=== PATIENT | male | born 1945 | race Caucasian/White ===

== ENCOUNTER 2023-10-09 13:41 | Inpatient (IN) | payer MEDICARE ==
[2023-10-09] MEDS ORDERED: SODIUM CHLORIDE 0.9% 500 ML 500 ML IV STA (14:24)
[2023-10-09] MEDS ORDERED: ACETAMINOPHEN TAB 500 MG TAB PO STA (14:26)
--- NOTE | 2023-10-09 14:28 | ED ---
General Adult HPI - General Chief complaint: Shortness of Breath Stated complaint: SOB Time Seen by Provider: 10/09/23 13:54 Source: patient, EMS Mode of arrival: EMS Limitations: no limitations - History of Present Illness Initial comments: Dictation was produced using [employer] dictation software. please excuse any grammatical, word or spelling errors. Chief Complaint: 78-year-old male presents with fever and shortness of breath History of Present Illness: Is 78-year-old male is brought in from home by EMS for shortness of breath. Patient states that his called because he was severely dyspneic. Patient states for the last 24-48 hours he is been having fever and shortness of breath. He has history of COPD and CHF. Denies any chest pain. Denies any constitutional symptoms. He was surprised when the nurse told he had a fever. Denies any lower 70 pain. No history of blood clots. He does not take any medical evaluation medications. The ROS documented in this emergency department record has been reviewed and co nfirmed by me. Those systems with pertinent positive or negative responses have been documented in the HPI. All other systems are other negative and/or noncontributory. - Related Data Home Medications Medication Instructions Recorded Confirmed Fluticasone/Umeclidin/Vilanter 1 puff INHALATION RT-DAILY 10/09/23 10/09/23 [Trelegy Ellipta 100-62.5-25] Levocetirizine Dihydrochloride 5 mg PO HS 10/09/23 10/09/23 [Xyzal] Losartan-Hctz 50-12.5 mg [Hyzaar 1 tab PO DAILY 10/09/23 10/09/23 50-12.5] Montelukast [Singulair] 10 mg PO DAILY 10/09/23 10/09/23 Pantoprazole [Protonix] 40 mg PO DAILY 10/09/23 10/09/23 Simvastatin [Zocor] 20 mg PO HS 10/09/23 10/09/23 Allergies Allergy/AdvReac Type Severity Reaction Status Date / Time No Known Allergies Allergy Verified 10/09/23 16:03 Review of Systems ROS Statement: Those systems with pertinent positive or pertinent negative responses have been documented in the HPI. ROS Other: All systems not noted in ROS Statement are negative. Past Medical History Past Medical History: Heart Failure, COPD Past Surgical History: Heart Catheterization, Heart Catheterization With Stent Smoking Status: Former smoker Past Alcohol Use History: None Reported Past Drug Use History: None Reported General Exam - General Exam Comments Initial Comments: PHYSICAL EXAM: General Impression: Alert and oriented x3, not in acute distress HEENT: Normocephalic atraumatic, extra-ocular movements intact, pupils equal and reactive to light bilaterally, mucous membranes moist. Cardiovascular: Heart regular rate and rhythm Chest: Able to complete full sentences, no retractions, no tachypnea Abdomen: abdomen soft, non-tender, non-distended, no organomegaly Musculoskeletal: Pulses present and equal in all extremities, no peripheral edema Motor: no focal deficits noted Neurological: CN II-XII grossly intact, no focal motor or sensory deficits noted Skin: Intact with no visualized rashes Psych: Normal affect and mood Limitations: no limitations Course Vital Signs 10/09/23 10/09/23 10/09/23 13:44 13:51 14:06 Temperature 101.4 F H Pulse Rate 134 H Respiratory 34 H 30 H Rate Blood Pressure 111/74 O2 Sat by Pulse 78 L 90 L Oximetry 10/09/23 10/09/23 14:51 16:05 Temperature 98.4 F Pulse Rate 113 H Respiratory 18 Rate Blood Pressure O2 Sat by Pulse 93 L 93 L Oximetry EKG Findings - EKG Comments: EKG Findings:: My EKG interpretation: Ventricular rate 123, sinus tachycardia,. 160, QRS 100, QTC 355. No IL prolongation, no QTC prolongation, no ST or T-wave changes noted. No old EKG for comparison. Overall, this EKG is unremarkable Medical Decision Making - Medical Decision Making Was pt. sent in by a medical professional or institution (, PA, DIRECTOR OF GROUP COUNSELING PROGRAM, urgent care, hospital, or longterm...) When possible be specific @ -No Did you speak to anyone other than the patient for history (EMS, parent, family, police, friend...)? What history was obtained from this source @ -No Did you review nursing and triage notes (agree or disagree)? Why? @ -I reviewed and agree with nursing and triage notes Were old charts reviewed (outside hosp., previous admission, EMS record, old EKG, old radiological studies, urgent care reports/EKG's, longterm records)? Report findings @ -No old charts were reviewed Differential Diagnosis (chest pain, altered mental status, abdominal pain women, abdominal pain men, vaginal bleeding, musculoskeletal, weakness, fever, dyspnea, syncope, headache, dizziness, GI bleed, back pain, seizure, CVA, palpatations, mental health)? @ -Differential Dyspnea: Coronary syndrome, arrhythmia, tamponade, asthma, COPD, pulmonary embolism, pneumonia, pneumothorax, pulmonary effusion, anaphylaxis, diabetic ketoacidosis, flailed chest, pulmonary contusion, diaphragmatic rupture, anemia, neuromuscula r, this is not meant to be an all-inclusive list. EKG interpreted by me (3pts min.). @ -See above X-rays interpreted by me (1pt min.). @ -X-ray shows left lung infiltrates CT interpreted by me (1pt min.). @ -None done U/S interpreted by me (1pt. min.). @ -None done What testing was considered but not performed or refused? (CT, X-rays, U/S, labs)? Why? @ -None What meds were considered but not given or refused? Why? @ -None Did you discuss the management of the patient with other professionals (professionals i.e. , PA, DIRECTOR OF GROUP COUNSELING PROGRAM, lab, RT, psych nurse, social professionals, clay washer, teacher, compliance officer, caseworker intake)? Give summary @ -Discussed with hospitalist for admission Was smoking cessation discussed for >3mins.? @ -No Was critical care preformed (if so, how long)? @ -yes, 33 minutes Were there social determinants of health that impacted care today? How? (Homelessness, low income, unemployed, alcoholism, drug addiction, transport ation, low edu. Level, literacy, decrease access to med. care, [facility], rehab)? @ -No Was there de-escalation of care discussed even if they declined (Discuss DNR or withdrawal of care, Hospice)? DNR status @ -No What co-morbidities impacted this encounter? (DM, HTN, Smoking, COPD, CAD, Cancer, CVA, ARF, Chemo, Hep., AIDS, mental health diagnosis, sleep apnea, morbid obesity)? @ -None Was patient admitted / discharged? Hospital course, mention meds given and route, prescriptions, significant lab abnormalities, going to OR and other pertinent info. @ -78-year-old male presents emergency department for respiratory failure. Does have a fever. Vital signs upon arrival shows temperature 10.4, 34% respiratory rate 70% on room air. Patient placed on nasal cannula oxygen with improvement of respiratory status. Leukocytosis 22.0, coag panel is negative. Hyponatremic 126 over left gas at 2.3. Troponin of 0.255 with a BNP of 200001/12/1971. Patient meets criteria for sepsis. Given his history of heart failure 3 mL per KG bolus may be harmful. He will gently hydrate patient. Patient be admitted. Patient started on antibiotics. Pulmonology will be con sulted. Patient has an elevated troponin which likely secondary to infection. Cardiology be consulted. Undiagnosed new problem with uncertain prognosis? @ -No Drug Therapy requiring intensive monitoring for toxicity (Heparin, Nitro, Insulin, Cardizem)? @ -No Were any procedures done? @ -No Diagnosis/symptom? Acute, or Chronic, or Acute on Chronic? Uncomplicated (without systemic symptoms) or Complicated (systemic symptoms)? @ -Pneumonia, respiratory failure Side effects of treatment? @ -No Exacerbation, Progression, or Severe Exacerbation? @ -No Poses a threat to life or bodily function? How? (Chest pain, USA, MD, pneumonia, PE, COPD, DKA, ARF, appy, cholecystitis, CVA, Diverticulitis, Homicidal, Suicidal, threat to staff... and all critical care pts) @ -yes - Lab Data Result diagrams: 10/09/23 14:26 10/09/23 14:26 Lab Results 10/09/23 10/09/23 10/09/23 Range/Units 14:26 14:26 14:26 WBC 22.0 H (3.8-10.6) k/uL RBC 5.07 (4.30-5.90) m/uL Hgb 15.3 (13.0-17.5) gm/dL Hct 45.9 (39.0-53.0) % MCV 90.5 (80.0-100.0) fL MCH 30.2 (25.0-35.0) pg MCHC 33.4 (31.0-37.0) g/dL RDW 13.1 (11.5-15.5) % Plt Count 283 (150-450) k/uL MPV 8.1 Neutrophils % 93 % Lymphocytes % 3 % Monocytes % 4 % Eosinophils % 0 % Basophils % 0 % Neutrophils # 20.5 H (1.3-7.7) k/uL Lymphocytes # 0.6 L (1.0-4.8) k/uL Monocytes # 0.8 (0-1.0) k/uL Eosinophils # 0.0 (0-0.7) k/uL Basophils # 0.0 (0-0.2) k/uL PT (10.0-12.5) sec INR (<1.2) APTT (22.0-30.0) sec Sodium 126 L (137-145) mmol/L Potassium 5.1 (3.5-5.1) mmol/L Chloride 89 L (98-107) mmol/L Carbon Dioxide 21 L (22-30) mmol/L Anion Gap 16 mmol/L BUN 23 H (9-20) mg/dL Creatinine 0.84 (0.66-1.25) mg/dL Est GFR (CKD-EPI)AfAm >90 (>60 ml/min/1.73 sqM) Est GFR (CKD-EPI)NonAf 83 (>60 ml/min/1.73 sqM) Glucose 86 (74-99) mg/dL Plasma Lactic Acid Mac 2.3 H* (0.7-2.0) mmol/L Calcium 9.3 (8.4-10.2) mg/dL Magnesium 1.6 (1.6-2.3) mg/dL Total Bilirubin 2.1 H (0.2-1.3) mg/dL AST 35 (17-59) U/L ALT 21 (4-49) U/L Alkaline Phosphatase 72 (38-126) U/L Troponin I (0.000-0.034) ng/mL NT-Pro-B Natriuret Pep 2370 pg/mL Total Protein 8.0 (6.3-8.2) g/dL Albumin 4.3 (3.5-5.0) g/dL Influenza Type A (PCR) (Not Detectd) Influenza Type B (PCR) (Not Detectd) RSV (PCR) (Not Detectd) SARS-CoV-2 (PCR) (Not Detectd) 10/09/23 10/09/23 10/09/23 Range/Units 14:26 14:26 14:26 WBC (3.8-10.6) k/uL RBC (4.30-5.90) m/uL Hgb (13.0-17.5) gm/dL Hct (39.0-53.0) % MCV (80.0-100.0) fL MCH (25.0-35.0) pg MCHC (31.0-37.0) g/dL RDW (11.5-15.5) % Plt Count (150-450) k/uL MPV Neutrophils % % Lymphocytes % % Monocytes % % Eosinophils % % Basophils % % Neutrophils # (1.3-7.7) k/uL Lymphocytes # (1.0-4.8) k/uL Monocytes # (0-1.0) k/uL Eosinophils # (0-0.7) k/uL Basophils # (0-0.2) k/uL PT 13.1 H (10.0-12.5) sec INR 1.2 H (<1.2) APTT 25.9 (22.0-30.0) sec Sodium (137-145) mmol/L Potassium (3.5-5.1) mmol/L Chloride (98-107) mmol/L Carbon Dioxide (22-30) mmol/L Anion Gap mmol/L BUN (9-20) mg/dL Creatinine (0.66-1.25) mg/dL Est GFR (CKD-EPI)AfAm (>60 ml/min/1.73 sqM) Est GFR (CKD-EPI)NonAf (>60 ml/min/1.73 sqM) Glucose (74-99) mg/dL Plasma Lactic Acid Mac (0.7-2.0) mmol/L Calcium (8.4-10.2) mg/dL Magnesium (1.6-2.3) mg/dL Total Bilirubin (0.2-1.3) mg/dL AST (17-59) U/L ALT (4-49) U/L Alkaline Phosphatase (38-126) U/L Troponin I 0.255 H* (0.000-0.034) ng/mL NT-Pro-B Natriuret Pep pg/mL Total Protein (6.3-8.2) g/dL Albumin (3.5-5.0) g/dL Influenza Type A (PCR) Not Detected (Not Detectd) Influenza Type B (PCR) Not Detected (Not Detectd) RSV (PCR) Not Detected (Not Detectd) SARS-CoV-2 (PCR) Not Detected (Not Detectd) Disposition Clinical Impression: Pneumonia Disposition: ADMITTED IP TO THIS HOSP Condition: Serious Referrals: Yao Tavreas MD [Primary Care Provider] - 1-2 days Decision Time: 16:13
[2023-10-09 14:42] LABS: Basophils % (A) 0 %; Eosinophils % (A) 0 %; HCT 45.9 % (39.0-53.0); HGB 15.3 gm/dL (13.0-17.5); Lymphocytes # (A) 0.6 k/uL (1.0-4.8); Lymphocytes % (A) 3 %; MCH 30.2 pg (25.0-35.0); MCHC 33.4 g/dL (31.0-37.0); MCV 90.5 fL (80.0-100.0); Mean Platelet Volume 8.1; Monocytes # (A) 0.8 k/uL (0-1.0); Monocytes % (A) 4 %; Neutrophils # (A) 20.5 k/uL (1.3-7.7); Neutrophils % (A) 93 %; Platelet Count 283 k/uL (150-450); RBC 5.07 m/uL (4.30-5.90); RDW 13.1 % (11.5-15.5)
--- NOTE | 2023-10-09 14:44 | XR ---
EXAMINATION TYPE: XR chest 2V DATE OF EXAM: 10/09/2023 COMPARISON: NONE HISTORY: Shortness of breath TECHNIQUE: Frontal and lateral views of the chest are obtained. FINDINGS: Scattered senescent parenchymal changes noted. Hyperinflation compatible with COPD. Patchy left perihilar and left lower lobe infiltrate felt to reflect pneumonia until proven otherwise . Heart size is stable. Mediastinal structures are stable and grossly unremarkable. No evidence for hilar prominence. Degenerative changes dorsal spine. IMPRESSION: 1. Patchy left perihilar and left lower lobe infiltrate felt to reflect pneumonia until proven otherw ise.
[2023-10-09 14:57] LABS: ALT 21 U/L (4-49); African American GFR (CKD) >90 (>60 ml/min/1.73 sqM); Anion Gap 16 mmol/L; Blood Urea Nitrogen 23 mg/dL (9-20); Calcium 9.3 mg/dL (8.4-10.2); Carbon Dioxide 21 mmol/L (22-30); Chloride 89 mmol/L (98-107); Glucose 86 mg/dL (74-99); Non-African American GFR(CKD) 83 (>60 ml/min/1.73 sqM); Sodium 126 mmol/L (137-145); Total Bilirubin 2.1 mg/dL (0.2-1.3)
[2023-10-09 15:06] LABS: NT-Pro-B-Type Natriuretic Pept 2370 pg/mL
[2023-10-09 15:20] LABS: AST 35 U/L (17-59); Albumin 4.3 g/dL (3.5-5.0); Alkaline Phosphatase 72 U/L (38-126); Magnesium 1.6 mg/dL (1.6-2.3); Potassium 5.1 mmol/L (3.5-5.1)
[2023-10-09 15:30] LABS: INR 1.2 (<1.2); Partial Thromboplastin Time 25.9 sec (22.0-30.0); Prothrombin Time 13.1 sec (10.0-12.5)
[2023-10-09] MEDS ORDERED: AZITHROMYCIN 500 MG in SODIUM CHLORIDE 0.9% 250 ML IVPB STA (15:57)
[2023-10-09] MEDS ORDERED: cefTRIAXone IN SWFI 1,000 MG/10 ML SYRINGE IVP STA (15:57)
[2023-10-09] MEDS ORDERED: SODIUM CHLORIDE 0.9% 1,000 ML IV STA (16:02)
[2023-10-09] MEDS ORDERED: NALOXONE 0.4 MG/ML 1 ML VIAL IV PRN (16:06)
[2023-10-09] MEDS ORDERED: ASPIRIN 81 MG PO STA (16:06)
[2023-10-09] MEDS: MAGNESIUM SULFATE-D5W PMX 1 GM in DEXTROSE/WATER 1 100ML.BAG IVPB SCH ×2 (17:10→19:03)
[2023-10-09] MEDS: SODIUM CHLORIDE 0.9% 1,000 ML IV SCH ×2 (17:14→23:31)
--- NOTE | 2023-10-09 18:02 | P.HPIM ---
History of Present Illness H&P Date: 10/09/23 History of Presenting Illness: Patient is a pleasant 78-year-old male with a past medical history of CAD status post stenting, hypertension, hyperlipidemia, COPD not home oxygen dependent, and congestive heart failure unknown type. He presented to the [facility] department secondary to reports of shortness of breath and cough. Patient reports he recently moved from [place] to [place] and over the past 3-4 days he has been battling some sort of illness. Patient states he has had generalized fatigue, loss of appetite, increased cough, increased shortness of breath, and significant dyspnea with any exertion. Patient reports he does not recall having an elevated temp at home but did have one upon arrival to the hospital. He reports feeling chilled about 4 or 5 days ago but other than that he denies having any chills, diaphoresis, headache, lightheadedness, dizziness, chest pain, palpitations, or experiencing any numbness/tingling/weakness/ swelling in his extremities. Patient does report loss of appetite and states that he has not really drink or eat anything in a couple of days. In addition he reports last time urinating being sometime last night probably between midnight and 3 AM. He reports having all of his vaccinations for pneumonia, RSV, and Covid and reports he just got his boosters last month. He denies anyone else in the home being sick or exposure to known ill contacts. Patient denies following with a rail layer or director risk as he just moved to [place] in July and has not yet established care with them yet. Patient underwent full evaluation in the emergency department. He was found to be hypoxic 78% on room air requiring 6 L O2 via nasal cannula oxygen supplementation to increase SpO2 to 90%. Patient was tachypneic at 34 breaths per minute, tachycardic in the 134 bpm, and febrile with temperature 101.4F. Blood pressure stable at 111/74. Labs completed and reviewed. CBC showing significant leukocytosis with WBC count of 22.0. Coagulation profile showing elevated PT of 13.1 and INR 1.2. BMP showing hyponatremia with sodium 126, hypochloremia with chloride of 89, hypocarbia with bicarb of 21, elevated anion gap of 16, with BUN of 23. Glucose was 86. Lactic acid of 2.3. Magnesium 1.6. Elevated bili of 2.1 and elevated troponin of 0.255. EKG showing sinus tachycardia with frequent PVCs at 123 bpm. chest x-ray showing patchy left perihilar and left lower lobe infiltrate. Influenza A, influenza B, RSV, and Covid PCR were all negative. Patient admitted under our services with consultation and to rail layer for elevated troponin levels and director risk for acute respiratory failure with hypoxia. Review of systems: Pertinent positives and negatives as discussed in HPI, a complete review of systems was performed and all other systems are negative. Physical exam: General: Patient appears in acute distress secondary to increased respiratory effort and oxygenation needs. Derm: Skin warm and dry, normal coloration for ethnicity. Head: Atraumatic, normocephalic and symmetric. Eyes: EOMs intact, no lid lag, and anicteric sclera Mouth: no lip lesions, mucus membranes moist Cardiovascular: regular rate and rhythm with normal S1S2, no murmur, positive posterior tibial pulses bilaterally, and cap refill < 2 seconds. Lungs: Respirations even, regular, and unlabored on 6 L O2 via nasal cannula. Lungs diminished otherwise no rhonchi, no rales, no wheezing, no crackles and no accessory muscle usage. Abdominal: soft, nontender to palpation, no guarding, no appreciable organo megaly Ext: ROM intact. No gross muscle atrophy, no edema, no contractures Neuro: Speech clear, face symmetrical and CN II-XII grossly intact with no noted focal neuro deficits Psych: Alert and oriented to person, place, time, and situation. Appropriate and pleasant affect. Assessment and Plan of Care: Acute respiratory failure with hypoxia secondary to left basilar pneumonia accompanied by COPD exacerbation Severe sepsis Left lower lobe pneumonia COPD with acute exacerbation likely secondary to above Elevated troponin, possibly secondary to severe sepsis although cannot rule out cardiac etiology at this time High anion gap Lactic acidosis Dehydration with hyponatremia Hyperbilirubinemia Elevated troponin History of CAD status post stenting Hypertension Hyperlipidemia -Pulmonology consulted for acute respiratory failure with hypoxia -Cardiology consulted for elevated troponins -Patient received aspirin 325 mg by mouth 1 dose in the emergency department in order placed for repeat stat troponin now. -Oxygenation to be administered and titrated as needed to maintain SPO2 equal to or greater than 92% -Patient to remain on continuous Telemetry monitoring. -Order placed for trending of troponins -Continuous Pulse-oximetry -Duonebs scheduled for times daily and as needed for SOB and/or wheezing -Incentive Spirometry -Steroids: Same Medrol 125 mg IVP 1 dose followed by 40 mg IVP every 6 hours. -Antibiotics: Rocephin 2 g daily and azithromycin 500 mg daily. -Order placed for Sputum culture and will follow-up on blood culture results. -Patient being treated with gentle IV fluid hydration with 0.9% normal saline at 100 mL an hour secondary to dehydration and hyponatremia. -Order placed for stat urinalysis with reflex culture as patient reports approximately 18 hours since he has urinated. -Home medications reviewed and reordered. Patient to continue with aspirin 81 mg daily, atorvastatin 10 mg nightly, Symbicort 804 0.5 g 2 puffs twice daily, Claritin 10 mg nightly, losartan 50 mg daily, and Singulair 10 mg daily. -Magnesium replaced was 1. [address] for 2 g magnesium sulfate IVPB 1 dose. Data and imaging reviewed: -Vital signs reviewed. Patient hypoxic 78% on room air requiring 6 L O2 via nasal cannula oxygen supplementation to increase SpO2 to 90%. Patient was tachypneic at 34 breaths per minute, tachycardic in the 134 bpm, and febrile with temperature 101.4F. Blood pressure stable at 111/74. -Labs completed and reviewed. CBC showing significant leukocytosis with WBC count of 22.0. Coagulation profile showing elevated PT of 13.1 and INR 1.2. BMP showing hyponatremia with sodium 126, hypochloremia with chloride of 89, hypocarbia with bicarb of 21, elevated anion gap of 16, with BUN of 23. Glucose was 86. Lactic acid of 2.3. Magnesium 1.6. Elevated bili of 2.1 and elevated troponin of 0.255. -EKG showing sinus tachycardia with frequent PVCs at 123 bpm. -Chest x-ray showing patchy left perihilar and left lower lobe infiltrate. Influenza A, influenza B, RSV, and Covid PCR were all negative. The patient is admitted with an anticipated greater than 2 midnight stay for evaluation of acute respiratory failure with with hypoxia secondary to left basilar pneumonia accompanied by COPD exacerbation CODE STATUS: Full code DVT prophylaxis: Heparin Anticipated discharge date: Clinical course to determine Anticipated discharge place: Clinical course to determine Patient was seen independently by Nurse Practitioner. This document was prepared using [employer] dictation software. Please allow for errors in cytogenetic technologist while rare they do occur. Harvey Nur NP rendered care for this patient independently, reviewed the findings and plan as documented in the note above. I did not physically speak with or examine the patient on this date. Past Medical History Past Medical History: Heart Failure, COPD Past Surgical History: Heart Catheterization, Heart Catheterization With Stent Smoking Status: Former smoker Past Alcohol Use History: None Reported Past Drug Use History: None Reported Medications and Allergies Home Medications Medication Instructions Recorded Confirmed Type Fluticasone/Umeclidin/Vilanter 1 puff INHALATION RT-DAILY 10/09/23 10/09/23 History [Trelegy Ellipta 100-62.5-25] Levocetirizine Dihydrochloride 5 mg PO HS 10/09/23 10/09/23 History [Xyzal] Montelukast [Singulair] 10 mg PO DAILY 10/09/23 10/09/23 History Pantoprazole [Protonix] 40 mg PO DAILY 10/09/23 10/09/23 History Simvastatin [Zocor] 20 mg PO HS 10/09/23 10/09/23 History Budesonide-Formot 160-4.5 Mcg 2 puff INHALATION RT-BID 30 Days 10/15/23 Rx [Symbicort 160-4.5 Mcg Inhaler] #1 each Ipratropium-Albuterol Nebulize 3 ml INHALATION RT-QID #120 each 10/15/23 Rx [Duoneb 0.5 mg-3 mg/3 ml Soln] Losartan [Cozaar] 50 mg PO DAILY 30 Days #30 tab 10/15/23 Rx Metoprolol Succinate (ER) [Toprol 50 mg PO DAILY 30 Days #30 tab 10/15/23 Rx XL] amLODIPine [Norvasc] 5 mg PO DAILY 30 Days #30 tab 10/15/23 Rx predniSONE See Taper PO DIRECTED 12 Days 10/15/23 Rx #30 tab Allergies Allergy/AdvReac Type Severity Reaction Status Date / Time No Known Allergies Allergy Verified 10/09/23 16:03 Physical Exam Vitals: Vital Signs Temp Pulse Resp BP Pulse Ox 10/09/23 16:05 98.4 F 93 L 10/09/23 14:51 113 H 18 93 L 10/09/23 14:06 30 H 10/09/23 13:51 90 L 10/09/23 13:44 101.4 F H 134 H 34 H 111/74 78 L Intake and Output 10/09/23 10/09/23 10/09/23 06:59 14:59 22:59 Other: Weight 77.111 kg Results CBC & Chem 7: 10/15/23 08:36 10/15/23 08:36 Labs: Abnormal Lab Results - Last 24 Hours (Table) 10/09/23 10/09/23 10/09/23 Range/Units 14:26 14:26 14:26 WBC 22.0 H (3.8-10.6) k/uL Neutrophils # 20.5 H (1.3-7.7) k/uL Lymphocytes # 0.6 L (1.0-4.8) k/uL PT (10.0-12.5) sec INR (<1.2) Sodium 126 L (137-145) mmol/L Chloride 89 L (98-107) mmol/L Carbon Dioxide 21 L (22-30) mmol/L BUN 23 H (9-20) mg/dL Plasma Lactic Acid Mac 2.3 H* (0.7-2.0) mmol/L Total Bilirubin 2.1 H (0.2-1.3) mg/dL Troponin I (0.000-0.034) ng/mL 10/09/23 10/09/23 Range/Units 14:26 14:26 WBC (3.8-10.6) k/uL Neutrophils # (1.3-7.7) k/uL Lymphocytes # (1.0-4.8) k/uL PT 13.1 H (10.0-12.5) sec INR 1.2 H (<1.2) Sodium (137-145) mmol/L Chloride (98-107) mmol/L Carbon Dioxide (22-30) mmol/L BUN (9-20) mg/dL Plasma Lactic Acid Mac (0.7-2.0) mmol/L Total Bilirubin (0.2-1.3) mg/dL Troponin I 0.255 H* (0.000-0.034) ng/mL
[2023-10-09] MEDS ORDERED: methylPREDNISolone SOD SUCCI 125 MG/2 ML VIAL IV STA (18:03)
[2023-10-09] MEDS ORDERED: IPRATROPIUM-ALBUTEROL 3 ML NEB INHALATION PRN (18:04)
--- NOTE | 2023-10-09 18:11 | CT ---
EXAMINATION TYPE: CT chest angio for PE DATE OF EXAM: 10/09/2023 COMPARISON: None HISTORY: COUGH, SOB CT DLP: 289.8 mGycm CONTRAST: CT chest with contrast and 3D reconstruction with MIP imaging is performed with IV Contrast, patient injected with 100 mL of Isovue 370. Contrast-enhanced CT of the chest was performed through the course of the pulmonary arteries with primo g and mediastinal window settings submitted. 3D reconstruction with MIP imaging was also performed. PULMONARY ARTERIES: The pulmonary arteries and their major tributaries are patent. I do not see manish dence for sizable filling defect to suggest pulmonary embolic process. LUNGS: Basilar airspace consolidation noted left greater than right felt to reflect pneumonia or aspi ration pneumonia. Sizable effusion. Moderate centrilobular emphysema. Pleural parenchymal opacity rig ht upper lobe. MEDIASTINUM: Thoracic aorta is of normal caliber. The heart is not enlarged. No evidence for medias tinal mass. No mediastinal lymph nodes greater than 1cm. HILAR STRUCTURES: No evidence for mass. Mildly prominent perihilar peribronchial lymph nodes. Fixed h iatal hernia. UPPER ABDOMEN: No significant abnormality is seen. IMPRESSION: 1. No evidence for Pulmonary embolism at this time. 2. Findings suggest basilar pneumonia.
[2023-10-09] MEDS ORDERED: IPRATROPIUM 0.5 MG/2.5 ML NEBU INHALATION SCH (20:00)
[2023-10-09] MEDS ORDERED: SYMBICORT 80-4.5 MCG INHALER INHALATION SCH (20:00)
[2023-10-09] MEDS: LORATADINE 10 MG TAB PO SCH (20:52)
[2023-10-09] MEDS ORDERED: ATORVASTATIN 10 MG TAB PO SCH (21:00)
[2023-10-09] MEDS: IPRATROPIUM-ALBUTEROL 3 ML NEB INHALATION SCH (21:13)
[2023-10-09 23:04] LABS: Appearance,Urine Clear (Clear); Bilirubin,Urine Negative (Negative); Blood,Urine Negative (Negative); Color,Urine Yellow; Glucose,Urine (UA) Negative (Negative); Ketones,Urine Negative (Negative); Leukocyte Esterase,Urine Negative (Negative); Nitrite,Urine Negative (Negative); PH, Urine 5.5 (5.0-8.0); Protein,Urine Trace (Negative); Urobilinogen,Urine <2.0 mg/dL (<2.0)
[2023-10-09 23:05] LABS: Specific Gravity,Urine >1.050 (1.001-1.035)
[2023-10-09] MEDS: HEPARIN SODIUM,PORCINE 5,000 UNIT/ML 1 ML VIAL SQ SCH (23:30)
[2023-10-10] MEDS ORDERED: methylPREDNISolone SOD SUCCI 40 MG/ML 1 ML VIAL IV SCH
--- NOTE | 2023-10-10 04:27 | P.CNPUL ---
History of Present Illness Consult date: 10/10/23 Requesting physician: Yakov Alarcon Reason for consult: other (Pneumonia) Chief complaint: Shortness of breath 4 days with an associated congested cough and yellow s History of present illness: I am seeing this patient in consultation today in 10/10/2023 for suspected bilateral community acquired pneumonia. Patient is a 78-year-old white male with past medical history significant for coronary artery disease with previous heart catheterization and stents, CHF, hypertension, hyperlipidemia, and COPD. Not normally oxygen dependent. Patient is remote ex-smoker of over 20 years ago. Patient reportedly recently moved to [place] from [place]. Patient was brought in by EMS yesterday afternoon the chief complaint of shortness of breath. On arrival to the emergency room, he was hypoxic initially placed on 6 L/m nasal cannula. Chest CTA on arrival did not show any evidence of pulmonary embolism. It did show bibasilar infiltrates and consolidation suggestive of pneumonia. He admits shortness of breath over the last 4 days. This is been associated with a congested cough and yellow sputum production. He denies any fevers, however, was febrile on arrival. T-max 101.4F. Denies any chest pain or hemoptysis. Denies heart palpitations or any lower extremity swelling. Admits reduced appetite. No nausea, vomiting or abdominal pain. He denies any known sick contacts. Patient is currently sitting up in bed, but 3 L per nasal cannula, in no acute distress. CBC on arrival showed leukocytosis with a WBC count of 22, hemoglobin 15.3, hematocrit 45.9, platelets 283. BMP on arrival shows sodium 126, potassium 5.1, chloride 89, serum bicarb 21, BUN 23, creatinine 0.84, glucose 86. Lactic acid level was 2.3. LFTs not elevated. Troponins elevated at 0.255, 0.218, and 0.125 respectively. NT proBNP was 2370. ECG shoes sinus tachycardia with frequent PVCs and no acute ischemic changes. Negative for influenza, RSV, COVID-19. Patient appears nontoxic and hemodynamically stable. He is being monitored on the cardiac stepdown unit. Review of Systems REVIEW OF SYSTEMS: CONSTITUTIONAL: Denies any recent significant weight loss or weight gain. EYES: Denies change in vision. EARS, NOSE, MOUTH, THROAT: Denies headaches, denies sore throat. CARDIOVASCULAR: Denies chest pain, palpitations or syncopal episodes. RESPIRATORY: See HPI GASTROINTESTINAL: Denies abdominal pain, nausea and vomiting, or diarrhea . Admits reduced appetite GENITOURINARY: Denies hematuria, denies infections. MUSKULOSKELETAL: Denies pain, denies swelling. INTEGUMENTARY: Denies rash, denies eczema. NEUROLOGICAL: Denies recent memory loss, no recent seizure activity. PSYCHIATRIC: Denies anxiety, denies depression. HEMATOLOGIC/LYMPHATIC: Denies anemia, denies enlarged lymph node Past Medical History Past Medical History: Coronary Artery Disease (CAD), Heart Failure, COPD History of Any Multi-Drug Resistant Organisms: None Reported Past Surgical History: Coronary Bypass/CABG, Heart Catheterization, Heart Catheterization With Stent Additional Past Surgical History / Comment(s): Triple bypass 2015. Bypass artery in groin 2010. Past Anesthesia/Blood Transfusion Reactions: No Reported Reaction Date of Last Stent Placement:: 2014 Past Psychological History: No Psychological Hx Reported Smoking Status: Former smoker Past Alcohol Use History: Daily Additional Past Alcohol Use History / Comment(s): 1-2 drinks per day. Past Drug Use History: None Reported Medications and Allergies Home Medications Medication Instructions Recorded Confirmed Type Fluticasone/Umeclidin/Vilanter 1 puff INHALATION RT-DAILY 10/09/23 10/09/23 History [Trelegy Ellipta 100-62.5-25] Levocetirizine Dihydrochloride 5 mg PO HS 10/09/23 10/09/23 History [Xyzal] Losartan-Hctz 50-12.5 mg [Hyzaar 1 tab PO DAILY 10/09/23 10/09/23 History 50-12.5] Montelukast [Singulair] 10 mg PO DAILY 10/09/23 10/09/23 History Pantoprazole [Protonix] 40 mg PO DAILY 10/09/23 10/09/23 History Simvastatin [Zocor] 20 mg PO HS 10/09/23 10/09/23 History Allergies Allergy/AdvReac Type Severity Reaction Status Date / Time No Known Allergies Allergy Verified 10/09/23 16:03 Physical Exam Vitals: Vital Signs Temp Pulse Pulse Resp BP BP Pulse Ox 10/10/23 01:08 92 24 10/09/23 23:04 97.5 F L 92 24 133/71 93 L 10/09/23 21:26 86 10/09/23 21:16 81 10/09/23 20:08 97.2 F L 77 20 96/52 96 10/09/23 19:06 73 18 90/54 97 10/09/23 17:08 93 20 97/55 94 L 10/09/23 16:05 98.4 F 93 L 10/09/23 14:51 113 H 18 93 L 10/09/23 14:06 30 H 10/09/23 13:51 90 L 10/09/23 13:44 101.4 F H 134 H 34 H 111/74 78 L Intake and Output 10/09/23 10/09/23 10/10/23 14:59 22:59 06:59 Output Total 250 Balance -250 Output: Urine 250 Other: Voiding Method Urinal Urinal Weight 77.111 kg 77.111 kg GENERAL EXAM: Alert, 78-year-old white male , comfortable in no apparent distress. HEAD: Normocephalic and atraumatic EYES: Normal reaction of pupils, equal size. NOSE: Clear with pink turbinates. THROAT: No erythema or exudates. NECK: No masses, no JVD. CHEST: No chest wall deformity. LUNGS: Equal air entry with inspiratory bibasilar crackles and dullness. There are scattered rhonchi and wheezes throughout. On 3 L per minute nasal cannula. No conversational dyspnea or accessory muscle use.. CVS: S1 and S2 normal with no audible murmur, regular rhythm. No extra heart sounds ABDOMEN: No hepatosplenomegaly, active bowel sounds, no guarding or rigidity. SPINE: No scoliosis or deformity SKIN: No rashes CENTRAL NERVOUS SYSTEM: No focal deficits, tone is normal in all 4 extremities. EXTREMITIES: There is no peripheral edema, clubbing, or cyanosis. Peripheral pulses are intact. Results - Laboratory Findings CBC and BMP: 10/09/23 14:26 10/09/23 14:26 PT/INR, D-dimer PT 13.1 sec (10.0-12.5) H 10/09/23 14:26 INR 1.2 (<1.2) H 10/09/23 14:26 Abnormal lab findings: Abnormal Labs 10/09/23 10/09/23 10/09/23 14:26 14:26 14:26 WBC 22.0 H Neutrophils # 20.5 H Lymphocytes # 0.6 L PT INR Sodium 126 L Chloride 89 L Carbon Dioxide 21 L BUN 23 H Plasma Lactic Acid Mac 2.3 H* Total Bilirubin 2.1 H Troponin I Ur Specific [place] Urine Protein 10/09/23 10/09/23 10/09/23 14:26 14:26 19:20 WBC Neutrophils # Lymphocytes # PT 13.1 H INR 1.2 H Sodium Chloride Carbon Dioxide BUN Plasma Lactic Acid Mac Total Bilirubin Troponin I 0.255 H* 0.218 H* Ur Specific [place] Urine Protein 10/09/23 10/09/23 22:00 22:26 WBC Neutrophils # Lymphocytes # PT INR Sodium Chloride Carbon Dioxide BUN Plasma Lactic Acid Mac Total Bilirubin Troponin I 0.125 H* Ur Specific [place] >1.050 H Urine Protein Trace H - Diagnostic Findings Chest x-ray: image reviewed CT scan - chest: image reviewed Assessment and Plan Assessment: Acute hypoxemic respiratory failure, secondary to bibasilar community acquired pneumonia Acute COPD exacerbation, secondary to above Leukocytosis, secondary to above Hyponatremia Elevated troponins, likely related to supply/demand mismatch Coronary artery disease with previous heart catheterization since Benign essential hypertension Hyperlipidemia Former tobacco smoker Plan: Patient's medications, labs, chest x-ray reviewed Continue supplemental oxygen Continue empiric antibiotics and blood and sputum cultures are pending Negative for influenza, RSV, COVID-19 Start patient on combination of DuoNeb's, Symbicort inhaler, and IV Solu-Medrol Heparin for DVT prophylaxis and Protonix for GI prophylaxis. We will continue to follow. I have personally seen and examined the patient, performed the documentation and the assessment and plan as written. Number of minutes spent on the visit:20 Time with Patient: Greater than 30
[2023-10-10] MEDS: methylPREDNISolone SOD SUCCI 125 MG/2 ML VIAL IV SCH ×3 (05:51→17:05)
[2023-10-10 06:16] LABS: Glucose,Whole Blood 137 mg/dL (70-110)
[2023-10-10] MEDS ORDERED: NON FORMULARY DRUG (Fluticasone/Umeclidin/Vilanter [Trelegy Ellipta 100-62.5-25] 1 EACH Bl INHALATION SCH (08:00)
[2023-10-10] MEDS ORDERED: LOSARTAN-HCTZ 50-12.5 MG 1 EACH TAB PO SCH (09:00)
[2023-10-10] MEDS: ASPIRIN 81 MG PO SCH (09:24)
[2023-10-10] MEDS: LOSARTAN 50 MG TAB PO SCH (09:24)
[2023-10-10] MEDS: MONTELUKAST 10 MG TAB PO SCH (09:24)
[2023-10-10] MEDS: PANTOPRAZOLE 40 MG TABLET PO SCH (09:24)
[2023-10-10] MEDS: IPRATROPIUM-ALBUTEROL 3 ML NEB INHALATION SCH ×4 (09:25→20:57)
[2023-10-10] MEDS: SYMBICORT 160-4.5 MCG INHALER INHALATION SCH ×2 (09:25→20:57)
[2023-10-10 09:31] LABS: HCT 38.5 % (39.0-53.0); HGB 12.9 gm/dL (13.0-17.5); MCH 30.3 pg (25.0-35.0); MCHC 33.5 g/dL (31.0-37.0); MCV 90.5 fL (80.0-100.0); Mean Platelet Volume 8.1; Platelet Count 221 k/uL (150-450); RBC 4.25 m/uL (4.30-5.90); RDW 13.3 % (11.5-15.5); WBC 14.6 k/uL (3.8-10.6)
[2023-10-10 09:55] LABS: ALT 18 U/L (4-49); AST 24 U/L (17-59); African American GFR (CKD) >90 (>60 ml/min/1.73 sqM); Albumin 3.2 g/dL (3.5-5.0); Alkaline Phosphatase 70 U/L (38-126); Anion Gap 10 mmol/L; Blood Urea Nitrogen 20 mg/dL (9-20); Calcium 8.7 mg/dL (8.4-10.2); Carbon Dioxide 21 mmol/L (22-30); Chloride 96 mmol/L (98-107); Glucose 130 mg/dL (74-99); Magnesium 2.1 mg/dL (1.6-2.3); Non-African American GFR(CKD) >90 (>60 ml/min/1.73 sqM); Potassium 4.1 mmol/L (3.5-5.1); Sodium 127 mmol/L (137-145); Total Bilirubin 0.7 mg/dL (0.2-1.3); Total Protein 6.2 g/dL (6.3-8.2)
[2023-10-10] MEDS: HEPARIN SODIUM,PORCINE 5,000 UNIT/ML 1 ML VIAL SQ SCH ×2 (10:02→16:52)
[2023-10-10] MEDS: AZITHROMYCIN 500 MG in SODIUM CHLORIDE 0.9% 250 ML IVPB SCH (10:02)
[2023-10-10] MEDS: METOPROLOL SUCCINATE (ER) 25 MG TAB.ER.24H PO SCH (10:02)
[2023-10-10 11:26] LABS: Glucose,Whole Blood 229 mg/dL (70-110)
--- NOTE | 2023-10-10 12:19 | P.CRDCN ---
History of Present Illness History of present illness: HISTORY OF PRESENT ILLNESS: This is a 78-year-old male with a past medical history significant for hypertension, hyperlipidemia, peripheral arterial disease with bypass in 2011 and coronary artery disease with three-vessel CABG in 2016. Patient used to follow in the office with Dr. Angel but has not been seen since April 2020. We have been asked to see the patient in consultation for elevated troponins patient presented to the hospital with a chief complaint of shortness of breath. The patient states he has been feeling short of breath for the past 4 days. He denied having any chest pain or pressure. He denied having any dizziness or lightheadedness. Denied any fever or chills. Patient is being treated for acute COPD exacerbation and bilateral pneumonia. Patient examined at the bedside. He reports improvement in his shortness of breath at the time of examination. He denies any chest pain or pressure. He reports pain in his calfs with ambulation. 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 He states he is now back living in [place] for good and is agreeable to following with cardiology. * EKG reveals sinus tachycardia with PVCs * Chest xray patchy left perihilar and left lower lobe infiltrate felt to reflect pneumonia * CTA negative for pulmonary embolus and. Bibasilar pneumonia noted.. * Laboratory data: Troponin 0.255. 0.2188. 0.125. * Current home cardiac medications include simvastatin 20 mg at night and losartan -hydrochlorothiazide 50 mg12.5 mg daily * No previous echocardiogram or cardiac catheterization available EMR for review REVIEW OF SYSTEMS: At the time of my exam: CONSTITUTIONAL: Denies fever or chills. HEENT: Denies blurred vision, vision changes, or eye pain. Denies hemoptysis CARDIOVASCULAR: Denies chest pain. Denies orthopnea. Denies PND. Denies palpitations RESPIRATORY: Denies shortness of breath. GASTROINTESTINAL: Denies abdominal pain. Denies nausea or vomiting. HEMATOLOGIC: Denies bleeding disorders. GENITOURINARY: Denies any blood in urine. SKIN: Denies pruitis. Denies rash. PHYSICAL EXAM: VITAL SIGNS: Reviewed. GENERAL: Well-developed in no acute distress. HEENT: Head is normocephalic. Pupils are equal, round. Sclerae anicteric. Mucous membranes of the mouth are moist. Neck supple. No JVD or thyromegaly LUNGS: Respirations even and unlabored. Diminished to auscultation bilaterally. HEART: Regular rate and rhythm. S1 and S2 heard. ABDOMEN: Soft. Nondistended. Nontender. EXTREMITIES: Normal range of motion. No clubbing or cyanosis. Peripheral pulses intact, although diminished. No lower extremity edema NEUROLOGIC: Awake and alert. Oriented x 3. ASSESSMENT: Shortness of breath Bibasilar pneumonia Acute COPD exacerbation Acute hypoxic respiratory failure Leukocytosis Abnormal troponins, likely type II MD secondary to oxygen supply and demand mismatch Coronary artery disease with previous three-vessel CABG in 2016 Peripheral arterial disease with previous bypass in 2010 Claudication Hypertension Hyperlipidemia PLAN: Obtain 2-D echo to assess cardiac structure and function Increase Lipitor to 20 mg at night continue aspirin 81 mg daily Add metoprolol succinate 25 mg daily Patient will require outpatient follow-up post discharge as he has not had any cardiac testing performed in the last couple years. Will likely require outpatient cardiac cath to assess coronaries and grafts as patient thinks one of his grafts has closed on his last cardiac cath. Additionally patient is complaining of claudication and recommend further evaluation of PAD at his follow up visit in the office. Further recommendations pending patient's course Nurse practitioner note has been reviewed by physician. Signing provider agrees with the documented findings, assessment, and plan of care. Past Medical History Past Medical History: Coronary Artery Disease (CAD), Heart Failure, COPD History of Any Multi-Drug Resistant Organisms: None Reported Past Surgical History: Coronary Bypass/CABG, Heart Catheterization, Heart Catheterization With Stent Additional Past Surgical History / Comment(s): Triple bypass 2015. Bypass artery in groin 2010. Past Anesthesia/Blood Transfusion Reactions: No Reported Reaction Date of Last Stent Placement:: 2014 Past Psychological History: No Psychological Hx Reported Smoking Status: Former smoker Past Alcohol Use History: Daily Additional Past Alcohol Use History / Comment(s): 1-2 drinks per day. Past Drug Use History: None Reported Medications and Allergies Home Medications Medication Instructions Recorded Confirmed Type Fluticasone/Umeclidin/Vilanter 1 puff INHALATION RT-DAILY 10/09/23 10/09/23 History [Trelegy Ellipta 100-62.5-25] Levocetirizine Dihydrochloride 5 mg PO HS 10/09/23 10/09/23 History [Xyzal] Losartan-Hctz 50-12.5 mg [Hyzaar 1 tab PO DAILY 10/09/23 10/09/23 History 50-12.5] Montelukast [Singulair] 10 mg PO DAILY 10/09/23 10/09/23 History Pantoprazole [Protonix] 40 mg PO DAILY 10/09/23 10/09/23 History Simvastatin [Zocor] 20 mg PO HS 10/09/23 10/09/23 History Allergies Allergy/AdvReac Type Severity Reaction Status Date / Time No Known Allergies Allergy Verified 10/09/23 16:03 Physical Exam Vitals: Vital Signs Temp Pulse Pulse Resp BP BP Pulse Ox 10/10/23 11:37 97.3 F L 97 18 120/69 92 L 10/10/23 09:38 92 10/10/23 09:25 95 95 10/10/23 08:00 89 18 10/10/23 07:45 97.7 F 89 18 137/77 94 L 10/10/23 04:47 18 92 L 10/10/23 04:00 88 18 129/78 95 10/10/23 01:08 92 24 10/09/23 23:04 97.5 F L 92 24 133/71 93 L 10/09/23 21:26 86 10/09/23 21:16 81 10/09/23 20:08 97.2 F L 77 20 96/52 96 10/09/23 19:06 73 18 90/54 97 10/09/23 17:08 93 20 97/55 94 L 10/09/23 16:05 98.4 F 93 L 10/09/23 14:51 113 H 18 93 L 10/09/23 14:06 30 H 10/09/23 13:51 90 L 10/09/23 13:44 101.4 F H 134 H 34 H 111/74 78 L Intake and Output 10/09/23 10/10/23 10/10/23 22:59 06:59 14:59 Output Total 250 Balance -250 Output: Urine 250 Other: Voiding Method Urinal Urinal # Voids 1 Weight 77.111 kg Results 10/10/23 09:04 10/10/23 09:04 Cardiac Enzymes 10/09/23 10/09/23 10/09/23 Range/Units 14:26 14:26 19:20 AST 35 (17-59) U/L Troponin I 0.255 H* 0.218 H* (0.000-0.034) ng/mL 10/09/23 10/10/23 Range/Units 22:26 09:04 AST 24 (17-59) U/L Troponin I 0.125 H* (0.000-0.034) ng/mL Coagulation 10/09/23 Range/Units 14: PT 13.1 H (10.0-12.5) sec APTT 25.9 (22.0-30.0) sec CBC 10/09/23 10/10/23 Range/Units 14: 09:04 WBC 22.0 H 14.6 H (3.8-10.6) k/uL RBC 5.07 4.25 L (4.30-5.90) m/uL Hgb 15.3 12.9 L (13.0-17.5) gm/dL Hct 45.9 38.5 L (39.0-53.0) % Plt Count 283 221 (150-450) k/uL Comprehensive Metabolic Panel 10/09/23 10/10/23 Range/Units 14:26 09:04 Sodium 126 L 127 L (137-145) mmol/L Potassium 5.1 4.1 (3.5-5.1) mmol/L Chloride 89 L 96 L (98-107) mmol/L Carbon Dioxide 21 L 21 L (22-30) mmol/L BUN 23 H 20 (9-20) mg/dL Creatinine 0.84 0.50 L (0.66-1.25) mg/dL Glucose 86 130 H (74-99) mg/dL Calcium 9.3 8.7 (8.4-10.2) mg/dL AST 35 24 (17-59) U/L ALT 21 18 (4-49) U/L Alkaline Phosphatase 72 70 (38-126) U/L Total Protein 8.0 6.2 L (6.3-8.2) g/dL Albumin 4.3 3.2 L (3.5-5.0) g/dL Current Medications Generic Name Dose Route Start Last Admin Trade Name Freq PRN Reason Stop Dose Admin Albuterol/Ipratropium 3 ml 10/09/23 20:00 10/10/23 09:25 Ipratropium-Albuterol 3 Ml Neb INHALATION 3 ml RT-QID RENA Administration Albuterol/Ipratropium 3 ml 10/09/23 18:04 Ipratropium-Albuterol 3 Ml Neb INHALATION RT-Q2H PRN Shortness Of Breath Or Wheezing Aspirin 81 mg 10/10/23 09:00 10/10/23 09:24 Aspirin 81 Mg PO 81 mg DAILY RENA Administration Atorvastatin Calcium 20 mg 10/10/23 21:00 Atorvastatin 20 Mg Tab PO HS RENA Budesonide/Formoterol Fumarate 2 puff 10/10/23 08:00 10/10/23 09:25 Symbicort 160-4.5 Mcg Inhaler INHALATION 2 puff RT-BID RENA Administration Heparin Sodium (Porcine) 5,000 unit 10/10/23 00:00 10/10/23 10:02 Heparin Sodium,Porcine 5,000 Unit/Ml 1 Ml Vial SQ 5,000 unit Q8HR RENA Administration Azithromycin 500 mg/ Sodium 250 mls @ 250 mls/hr 10/10/23 09:00 10/10/23 10:02 Chloride IVPB 10/12/23 09:59 250 mls/hr DAILY RENA Administration Ceftriaxone Sodium 2 gm/ 50 mls @ 100 mls/hr 10/10/23 09:00 10/10/23 09:24 Sodium Chloride IVPB 100 mls/hr Q24HR RENA Administration Sodium Chloride 1,000 mls @ 75 mls/hr 10/10/23 11:45 Saline 0.9% IV .[id number] RENA Loratadine 10 mg 10/09/23 21:00 10/09/23 20:52 Loratadine 10 Mg Tab PO 10 mg HS RENA Administration Losartan Potassium 50 mg 10/10/23 09:00 10/10/23 09:24 Losartan 50 Mg Tab PO 50 mg DAILY RENA Administration Methylprednisolone Sodium Succinate 60 mg 10/10/23 06:00 10/10/23 05:51 Methylprednisolone Sod Succi 125 Mg/2 Ml Vial IV 60 mg Q6HR RENA Administration Metoprolol Succinate 25 mg 10/10/23 09:15 10/10/23 10:02 Metoprolol Succinate (Er) 25 Mg Tab.Er.24h PO 25 mg DAILY RENA Administration Montelukast Sodium 10 mg 10/10/23 09:00 10/10/23 09:24 Montelukast 10 Mg Tab PO 10 mg DAILY RENA Administration Naloxone HCl 0.2 mg 10/09/23 16:06 Naloxone 0.4 Mg/Ml 1 Ml Vial IV Q2M PRN Opioid Reversal Pantoprazole Sodium 40 mg 10/10/23 09:00 10/10/23 09:24 Pantoprazole 40 Mg Tablet PO 40 mg DAILY RENA Administration Intake and Output 10/09/23 10/10/23 10/10/23 22:59 06:59 14:59 Output Total 250 Balance -250 Output: Urine 250 Other: Voiding Method Urinal Urinal # Voids 1 Weight 77.111 kg 10/10/23 09:04 10/10/23 09:04
--- NOTE | 2023-10-10 12:34 | CA ---
Transthoracic Echo Report Name: Mushtaq Herrera Age: 78 Gender: M : 1945 Exam Date: 10/10/2023 10:48 Exam Location: [facility] Ht (in): 70 Wt (lb): 170 Ordering Physician: Jessica Cunningham DO Attending/Referring Phys: [id number], Octavio Shoe Coverer Caterina Boyer [facility] Procedure CPT: Indications: chf Cardiac Hx: Technical Quality: Technically difficult study Contrast 1: Definity Total Dose (mL): 5 Contrast 2: Total Dose (mL): MEASUREMENTS (Male / Female) Normal Values 2D ECHO LV Diastolic Diameter PLAX 4.2 cm 4.2 - 5.9 / 3.9 - 5.3 cm LV Systolic Diameter PLAX 3.1 cm IVS Diastolic Thickness 1.1 cm 0.6 - 1.0 / 0.6 - 0.9 cm LVPW Diastolic Thickness 1.1 cm 0.6 - 1.0 / 0.6 - 0.9 cm LV Relative Wall Thickness 0.5 DOPPLER AV Peak Velocity 135.1 cm/s AV Peak Gradient 7.3 mmHg AV Mean Velocity 83.3 cm/s AV Mean Gradient 3.4 mmHg AV Velocity Time Integral 20.4 cm LVOT Peak Velocity 89.0 cm/s LVOT Peak Gradient 3.2 mmHg LVOT Velocity Time Integral 18.0 cm Mitral E Point Velocity 69.9 cm/s Mitral A Point Velocity 117.5 cm/s Mitral E to A Ratio 0.6 MV Deceleration Time 107.6 ms LV E' Lateral Velocity 12.8 cm/s Mitral E to LV E' Lateral Ratio 5.5 LV E' Septal Velocity 11.1 cm/s Mitral E to LV E' Septal Ratio 6.3 TR Peak Velocity 308.2 cm/s TR Peak Gradient 38.0 mmHg Right Atrial Pressure 3.0 mmHg Pulmonary Artery Systolic Pressu 41.0 mmHg Right Ventricular Systolic Press 41.0 mmHg FINDINGS Left Ventricle Mildly increased septal wall thickness. Left ventricular cavity size normal. Normal left ventricular systolic function with no obvious regional wall motion abnormalities. Left ventricular ejection fraction is estimated at 55-60%. Right Ventricle Right ventricle not well visualized. Moderate pulmonary hypertension. Right Atrium Normal right atrial size. Left Atrium Normal left atrial size. Mitral Valve Mitral valve thickened. Mild mitral annular calcification. Aortic Valve Aortic valve not well visualized. No aortic regurgitation. Tricuspid Valve Tricuspid valve not well visualized. Mild tricuspid regurgitation. Pulmonic Valve Pulmonic valve not well visualized. Pericardium No pericardial effusion. Echo free space anterior to the right ventricle likely represents a fat pad. Aorta Aortic root and proximal ascending aorta not well visualized. CONCLUSIONS Normal LV function Moderate pulmonary hypertension Previewed by: Dr. Fadi Saucedo MD (Electronically Signed) Final Date: 10 October 2023 12:33
[2023-10-10] MEDS: SODIUM CHLORIDE 0.9% 1,000 ML IV SCH (12:53)
[2023-10-10 16:51] LABS: Glucose,Whole Blood 158 mg/dL (70-110)
--- NOTE | 2023-10-10 17:25 | P.PN ---
Subjective Progress Note Date: 10/10/23 (delayed charting seen at 1115) Patient is a 78-year-old male with known CAD status post stenting, hypertension, hyperlipidemia, COPD, and congestive heart failure unknown type who presetned to the ER with complaints of shortness of breath. In the emergency department he was found to be hypoxic at 78% on room air and required6 L O2. He was tachypneic at 34 breaths per minute, tachycardic in the 134 bpm, and febrile with temperature 101.4F. Labs were remarkable for WBC count of 22 .0, sodium 126, chloride 89, bicarb of 21, elevated anion gap of 16, BUN of 23, Lactic acid of 2.3. and troponin of 0.255. Influenza A, influenza B, RSV, and Covid PCR were all negative. CT chest showed no evidence of pulmonary embolism but did show bibasilar pneumonia. Patient admitted with cardio consult. Pulmonary was consulted. Patient seen and examined at bedside. Feeling better than yesterday but still not back to baseline. Still has slightly decreased appetite. No nausea or vomiting. Vital signs reviewed General: nontoxic, no distress, appears at stated age Cardiovascular: S1S2 reg, no murmur, positive posterior tibial pulse bilateral, Lungs: Coarse breath sounds bilateral, no rhonchi, no rales , no accessory muscle use Abdominal: soft, nontender to palpation, no guarding, no appreciable organomegaly Ext: no gross muscle atrophy, no edema b/l lower extremities, no contractures Neuro: CN II-XI grossly intact, no focal neuro deficits Psych: Alert, oriented, appropriate affect Assessment/Plan: Community-acquired pneumonia with acute hypoxic respiratory failure and sepsis Acute exacerbation of COPD Hyponatremia secondary to dehydration and diuretic use - Zithromax 500 mg IV piggyback day #2, Rocephin 2 g IV daily day #2 -Hold hydrochlorothiazide -Await sputum culture -Normal saline at 75 mL/h - repeat BMP at 1800 and in AM to monitor sodium -Continue with DuoNeb's every 4 hours scheduled and every 2 hours as needed, Symbicort twice daily, Solu-Medrol 60 mg every 6 hours - Pulmonary no reviewed: Continue with current care - repeat CXR in AM Type II non-STEMI secondary to severe sepsis History of CAD status post stenting Hypertension Hyperlipidemia -Cardiology consult reviewed: Follow-up outpatient for further cardiac testing, patient also has some claudication will need PAD evaluation in the office. -Echocardiogram with ejection fraction 55-60% and moderate pulmonary hypertension -Metoprolol 25 mg daily, aspirin 81 mg daily, Lipitor 21 mg daily Lactic acidosis, resolved. Imaging: None new Data Review: Labs reviewed from today include CBC and basic metabolic profile is remarkable for white blood cell 14.6, hemoglobin 12.9, sodium 127. DVT prophylaxis: Heparin SC Anticipated discharge date: Pending clinical course Anticipated discharge place: Pending clinical course This dictation was prepared using [employer] voice recognition software. Though every attempt is made to correct errors during dictation some may still exist. Objective - Vital Signs Vital signs: Vital Signs Temp 98.5 F 10/10/23 15:45 Pulse 86 10/10/23 16:35 Resp 19 10/10/23 15:45 BP 125/70 10/10/23 15:45 Pulse Ox 94 L 10/10/23 15:45 FiO2 Intake & Output 10/09/23 10/10/23 10/10/23 18:59 06:59 18:59 Output Total 250 Balance -250 Weight 77.111 kg 77.111 kg Output: Urine 250 Other: Voiding Method Urinal Urinal # Voids 1 - Labs CBC & Chem 7: 10/10/23 09:04 10/10/23 09:04 Labs: Abnormal Lab Results - Last 24 Hours (Table) 10/09/23 10/09/23 10/09/23 Range/Units 19:20 22:00 22:26 WBC (3.8-10.6) k/uL RBC (4.30-5.90) m/uL Hgb (13.0-17.5) gm/dL Hct (39.0-53.0) % Sodium (137-145) mmol/L Chloride (98-107) mmol/L Carbon Dioxide (22-30) mmol/L Creatinine (0.66-1.25) mg/dL Glucose (74-99) mg/dL POC Glucose (mg/dL) (70-110) mg/dL Troponin I 0.218 H* 0.125 H* (0.000-0.034) ng/mL Total Protein (6.3-8.2) g/dL Albumin (3.5-5.0) g/dL Ur Specific [place] >1.050 H (1.001-1.035) Urine Protein Trace H (Negative) 10/10/23 10/10/23 10/10/23 Range/Units 06:15 09:04 09:04 WBC 14.6 H (3.8-10.6) k/uL RBC 4.25 L (4.30-5.90) m/uL Hgb 12.9 L (13.0-17.5) gm/dL Hct 38.5 L (39.0-53.0) % Sodium 127 L (137-145) mmol/L Chloride 96 L (98-107) mmol/L Carbon Dioxide 21 L (22-30) mmol/L Creatinine 0.50 L (0.66-1.25) mg/dL Glucose 130 H (74-99) mg/dL POC Glucose (mg/dL) 137 H (70-110) mg/dL Troponin I (0.000-0.034) ng/mL Total Protein 6.2 L (6.3-8.2) g/dL Albumin 3.2 L (3.5-5.0) g/dL Ur Specific [place] (1.001-1.035) Urine Protein (Negative) 10/10/23 10/10/23 Range/Units 11:24 16:49 WBC (3.8-10.6) k/uL RBC (4.30-5.90) m/uL Hgb (13.0-17.5) gm/dL Hct (39.0-53.0) % Sodium (137-145) mmol/L Chloride (98-107) mmol/L Carbon Dioxide (22-30) mmol/L Creatinine (0.66-1.25) mg/dL Glucose (74-99) mg/dL POC Glucose (mg/dL) 229 H 158 H (70-110) mg/dL Troponin I (0.000-0.034) ng/mL Total Protein (6.3-8.2) g/dL Albumin (3.5-5.0) g/dL Ur Specific [place] (1.001-1.035) Urine Protein (Negative) Microbiology - Last 24 Hours (Table) 10/09/23 22:30 Gram Stain - Preliminary Sputum
[2023-10-10 18:21] LABS: African American GFR (CKD) >90 (>60 ml/min/1.73 sqM); Anion Gap 11 mmol/L; Blood Urea Nitrogen 24 mg/dL (9-20); Calcium 8.8 mg/dL (8.4-10.2); Carbon Dioxide 21 mmol/L (22-30); Chloride 97 mmol/L (98-107); Glucose 203 mg/dL (74-99); Non-African American GFR(CKD) >90 (>60 ml/min/1.73 sqM); Potassium 3.6 mmol/L (3.5-5.1); Sodium 129 mmol/L (137-145)
[2023-10-10 20:41] LABS: Glucose,Whole Blood 166 mg/dL (70-110)
[2023-10-10] MEDS: LORATADINE 10 MG TAB PO SCH (21:12)
[2023-10-10] MEDS: ATORVASTATIN 20 MG TAB PO SCH (21:12)
[2023-10-11] MEDS: HEPARIN SODIUM,PORCINE 5,000 UNIT/ML 1 ML VIAL SQ SCH ×3 (00:49→16:49)
[2023-10-11] MEDS: methylPREDNISolone SOD SUCCI 125 MG/2 ML VIAL IV SCH ×4 (00:49→16:49)
[2023-10-11] MEDS: SODIUM CHLORIDE 0.9% 1,000 ML IV SCH ×2 (05:31→17:47)
[2023-10-11 06:09] LABS: Glucose,Whole Blood 123 mg/dL (70-110)
[2023-10-11] MEDS: SYMBICORT 160-4.5 MCG INHALER INHALATION SCH ×2 (08:03→20:47)
[2023-10-11] MEDS: IPRATROPIUM-ALBUTEROL 3 ML NEB INHALATION SCH ×4 (08:03→20:48)
[2023-10-11] MEDS: METOPROLOL SUCCINATE (ER) 25 MG TAB.ER.24H PO SCH (08:33)
[2023-10-11] MEDS: LOSARTAN 50 MG TAB PO SCH (08:33)
[2023-10-11] MEDS: ASPIRIN 81 MG PO SCH (08:33)
[2023-10-11] MEDS: PANTOPRAZOLE 40 MG TABLET PO SCH (08:33)
[2023-10-11] MEDS: MONTELUKAST 10 MG TAB PO SCH (08:33)
[2023-10-11 09:03] LABS: HCT 40.9 % (39.0-53.0); HGB 13.1 gm/dL (13.0-17.5); MCH 29.8 pg (25.0-35.0); Mean Platelet Volume 8.5; Platelet Count 235 k/uL (150-450); RBC 4.39 m/uL (4.30-5.90); RDW 13.4 % (11.5-15.5); WBC 12.4 k/uL (3.8-10.6)
[2023-10-11] MEDS: AZITHROMYCIN 500 MG in SODIUM CHLORIDE 0.9% 250 ML IVPB SCH (09:15)
[2023-10-11 09:16] LABS: African American GFR (CKD) >90 (>60 ml/min/1.73 sqM); Anion Gap 11 mmol/L; Blood Urea Nitrogen 25 mg/dL (9-20); Calcium 9.1 mg/dL (8.4-10.2); Carbon Dioxide 21 mmol/L (22-30); Chloride 100 mmol/L (98-107); Glucose 164 mg/dL (74-99); Magnesium 2.2 mg/dL (1.6-2.3); Non-African American GFR(CKD) >90 (>60 ml/min/1.73 sqM); Phosphorus 2.9 mg/dL (2.5-4.5); Potassium 4.2 mmol/L (3.5-5.1); Sodium 132 mmol/L (137-145)
[2023-10-11] MEDS ORDERED: METOPROLOL SUCCINATE (ER) 25 MG TAB.ER.24H PO STA (11:12)
--- NOTE | 2023-10-11 11:13 | P.PN ---
Subjective HISTORY OF PRESENT ILLNESS: This is a 78-year-old male with a past medical history significant for hypertension, hyperlipidemia, peripheral arterial disease with bypass in 2011 and coronary artery disease with three-vessel CABG in 2016. Patient used to follow in the office with Dr. Angel but has not been seen since April 2020. We have been asked to see the patient in consultation for elevated troponins patient presented to the hospital with a chief complaint of shortness of breath. The patient states he has been feeling short of breath for the past 4 days. He denied having any chest pain or pressure. He denied having any dizziness or lightheadedness. Denied any fever or chills. Patient is being treated for acute COPD exacerbation and bilateral pneumonia. Patient examined at the bedside. He reports improvement in his shortness of breath at the time of examination. He denies any chest pain or pressure. He reports pain in his calfs with ambulation. He states he has been moving around a lot over the last couple years and has not been able to consistently follow with a cardiovascular disease specialist. He states he is now back living in [place] for good and is agreeable to following with cardiology. * EKG reveals sinus tachycardia with PVCs * Chest xray patchy left perihilar and left lower lobe infiltrate felt to ref lect pneumonia * CTA negative for pulmonary embolus and. Bibasilar pneumonia noted.. * Laboratory data: Troponin 0.255. 0.2188. 0.125. * Current home cardiac medications include simvastatin 20 mg at night and losartan -hydrochlorothiazide 50 mg12.5 mg daily * No previous echocardiogram or cardiac catheterization available EMR for review 10/11/2023 Patient examined this morning at the bedside. Patient currently denies chest pain or pressure. He reports mild shortness of breath. Vital signs are stable. Telemetry reveals sinus mechanism. Echocardiogram performed revealing ejection fraction 55-60%, moderate pulmonary hypertension, mild TR PHYSICAL EXAM: VITAL SIGNS: Reviewed. GENERAL: Well-developed in no acute distress. HEENT: Head is normocephalic. Pupils are equal, round. Sclerae anicteric. Mucous membranes of the mouth are moist. Neck supple. No JVD or thyromegaly LUNGS: Respirations even and unlabored. Diminished to auscultation bilaterally. HEART: Regular rate and rhythm. S1 and S2 heard. ABDOMEN: Soft. Nondistended. Nontender. EXTREMITIES: Normal range of motion. No clubbing or cyanosis. Peripheral pulses intact, although diminished. No lower extremity edema NEUROLOGIC: Awake and alert. Oriented x 3. ASSESSMENT: Shortness of breath Bibasilar pneumonia Acute COPD exacerbation Acute hypoxic respiratory failure Leukocytosis Abnormal troponins, likely type II DE secondary to oxygen supply and demand mismatch Coronary artery disease with previous three-vessel CABG in 2016 Peripheral arterial disease with previous bypass in 2010 Claudication Hypertension Hyperlipidemia Moderate pulmonary hypertension PLAN: Continue current cardiac medications Treatment of pneumonia per primary medicine Increase metoprolol to 50mg daily. Give additional 25mg now. Patient will require outpatient follow-up post discharge as he has not had any cardiac testing performed in the last couple years. Will likely require outpatient cardiac cath to assess coronaries and grafts as patient thinks one of his grafts has closed on his last cardiac cath. Additionally patient is complaining of claudication and recommend further evaluation of PAD at his follow up visit in the office. Further recommendations pending patient's course Nurse practitioner note has been reviewed by physician. Signing provider agrees with the documented findings, assessment, and plan of care. Objective - Vital Signs Vital signs: Vital Signs Temp 97.5 F L 10/11/23 08:26 Pulse 105 H 10/11/23 08:26 Resp 18 10/11/23 08:26 BP 159/69 10/11/23 08:26 Pulse Ox 96 10/11/23 08:26 FiO2 Intake & Output 10/10/23 10/11/23 10/11/23 18:59 06:59 18:59 Intake Total 780 Balance 780 Intake: Oral 780 Other: Voiding Method Urinal Urinal # Voids 1 2 - Labs CBC & Chem 7: 10/11/23 07:58 10/11/23 07:58 Labs: Abnormal Lab Results - Last 24 Hours (Table) 10/10/23 10/10/23 10/10/23 Range/Units 09:04 09:04 11:24 WBC 14.6 H (3.8-10.6) k/uL RBC 4.25 L (4.30-5.90) m/uL Hgb 12.9 L (13.0-17.5) gm/dL Hct 38.5 L (39.0-53.0) % Sodium 127 L (137-145) mmol/L Chloride 96 L (98-107) mmol/L Carbon Dioxide 21 L (22-30) mmol/L BUN (9-20) mg/dL Creatinine 0.50 L (0.66-1.25) mg/dL Glucose 130 H (74-99) mg/dL POC Glucose (mg/dL) 229 H (70-110) mg/dL Total Protein 6.2 L (6.3-8.2) g/dL Albumin 3.2 L (3.5-5.0) g/dL 10/10/23 10/10/23 10/10/23 Range/Units 16:49 17:51 20:40 WBC (3.8-10.6) k/uL RBC (4.30-5.90) m/uL Hgb (13.0-17.5) gm/dL Hct (39.0-53.0) % Sodium 129 L (137-145) mmol/L Chloride 97 L (98-107) mmol/L Carbon Dioxide 21 L (22-30) mmol/L BUN 24 H (9-20) mg/dL Creatinine 0.57 L (0.66-1.25) mg/dL Glucose 203 H (74-99) mg/dL POC Glucose (mg/dL) 158 H 166 H (70-110) mg/dL Total Protein (6.3-8.2) g/dL Albumin (3.5-5.0) g/dL 10/11/23 10/11/23 10/11/23 Range/Units 06:08 07:58 07:58 WBC 12.4 H (3.8-10.6) k/uL RBC (4.30-5.90) m/uL Hgb (13.0-17.5) gm/dL Hct (39.0-53.0) % Sodium 132 L (137-145) mmol/L Chloride (98-107) mmol/L Carbon Dioxide 21 L (22-30) mmol/L BUN 25 H (9-20) mg/dL Creatinine 0.55 L (0.66-1.25) mg/dL Glucose 164 H (74-99) mg/dL POC Glucose (mg/dL) 123 H (70-110) mg/dL Total Protein (6.3-8.2) g/dL Albumin (3.5-5.0) g/dL Microbiology - Last 24 Hours (Table) 10/09/23 17:00 Blood Culture - Preliminary Blood 10/09/23 14:26 Blood Culture - Preliminary Blood 10/09/23 22:30 Gram Stain - Preliminary Sputum
[2023-10-11 11:50] LABS: Glucose,Whole Blood 133 mg/dL (70-110)
--- NOTE | 2023-10-11 14:22 | P.PN ---
Subjective Progress Note Date: 10/11/23 Principal diagnosis: Respiratory failure. I am seeing this patient in consultation today in 10/10/2023 for suspected bilateral community acquired pneumonia. Patient is a 78-year-old white male with past medical history significant for coronary artery disease with previous heart catheterization and stents, CHF, hypertension, hyperlipidemia, and COPD. Not normally oxygen dependent. Patient is remote ex-smoker of over 20 years ago. Patient reportedly recently moved to [place] from [place]. Patient was brought in by EMS yesterday afternoon the chief complaint of shortness of breath. On arrival to the emergency room, he was hypoxic initially placed on 6 L/m nasal cannula. Chest CTA on arrival did not show any evidence of pulmonary embolism. It did show bibasilar infiltrates and consolidation suggestive of pneumonia. He admits shortness of breath over the last 4 days. This is been associated with a congested cough and yellow sputum production. He denies any f rajni, however, was febrile on arrival. T-max 101.4F. Denies any chest pain or hemoptysis. Denies heart palpitations or any lower extremity swelling. Admits reduced appetite. No nausea, vomiting or abdominal pain. He denies any known sick contacts. Patient is currently sitting up in bed, but 3 L per nasal cannula, in no acute distress. CBC on arrival showed leukocytosis with a WBC count of 22, hemoglobin 15.3, hematocrit 45.9, platelets 283. BMP on arrival shows sodium 126, potassium 5.1, chloride 89, serum bicarb 21, BUN 23, creatinine 0.84, glucose 86. Lactic acid level was 2.3. LFTs not elevated. Troponins elevated at 0.255, 0.218, and 0.125 respectively. NT proBNP was 2370. ECG shoes sinus tachycardia with frequent PVCs and no acute ischemic changes. Negative for influenza, RSV, COVID-19. Patient appears nontoxic and hemodynamically stable. He is being monitored on the cardiac stepdown unit. Progress note dated 10/11/2023. 78-year-old male admitted with a diagnosis of probable media acquired pneumonia, involving both lungs. The patient is seen today in room 367. Currently, the patient is on 2 L of oxygen, with saturations of 96%. When on room air, and saturation is only 88%. He continues on azithromycin, and Rocephin. The patient's getting saline at 20 mL an hour. Today, we will check a pro- calcitonin level. Sodium 132, potassium 4.2, chlorides 100, CO2 21, anion gap 11, BUN 25, and creatinine 0.55. Calcium, phosphorus, and magnesium are all normal. Objective - Vital Signs Vital signs: Vital Signs Temp 97.8 F 10/11/23 11:09 Pulse 98 10/11/23 14:00 Resp 18 10/11/23 14:00 BP 132/76 10/11/23 11:09 Pulse Ox 95 10/11/23 11:09 FiO2 Intake & Output 10/10/23 10/11/23 10/11/23 18:59 06:59 18:59 Intake Total 780 Balance 780 Intake: Oral 780 Other: Voiding Method Urinal Urinal Urinal # Voids 1 2 1 - Exam No acute distress, oriented 3. The patient is currently on 2 L of oxygen. No audible wheezing or use of accessory muscles. HEENT examination is grossly unremarkable. Mucous membranes are moist. No oral lesions. Neck supple. Full range of motion. No adenopathy thyromegaly or neck vein distention. Cardiovascular examination reveals regular rhythm rate. S1-S2 normal. No S3 or S4. No discernible murmur noted. Heart sounds are distant. Heart rate 98 bpm. Lungs reveal scattered coarse rhonchi. Few scattered crackles. No wheezes. Breath sounds equal bilaterally. Saturations are 95% on 2 L. Abdomen soft bowel sounds are heard. No masses or tenderness. Extremities are intact. No cyanosis clubbing or edema. Skin is without rash or lesion. Neurologic examination is brief but nonfocal. - Labs CBC & Chem 7: 10/11/23 07:58 10/11/23 07:58 Labs: Abnormal Lab Results - Last 24 Hours (Table) 10/10/23 10/10/23 10/10/23 Range/Units 16:49 17:51 20:40 WBC (3.8-10.6) k/uL Sodium 129 L (137-145) mmol/L Chloride 97 L (98-107) mmol/L Carbon Dioxide 21 L (22-30) mmol/L BUN 24 H (9-20) mg/dL Creatinine 0.57 L (0.66-1.25) mg/dL Glucose 203 H (74-99) mg/dL POC Glucose (mg/dL) 158 H 166 H (70-110) mg/dL 10/11/23 10/11/23 10/11/23 Range/Units 06:08 07:58 07:58 WBC 12.4 H (3.8-10.6) k/uL Sodium 132 L (137-145) mmol/L Chloride (98-107) mmol/L Carbon Dioxide 21 L (22-30) mmol/L BUN 25 H (9-20) mg/dL Creatinine 0.55 L (0.66-1.25) mg/dL Glucose 164 H (74-99) mg/dL POC Glucose (mg/dL) 123 H (70-110) mg/dL 10/11/23 Range/Units 11:47 WBC (3.8-10.6) k/uL Sodium (137-145) mmol/L Chloride (98-107) mmol/L Carbon Dioxide (22-30) mmol/L BUN (9-20) mg/dL Creatinine (0.66-1.25) mg/dL Glucose (74-99) mg/dL POC Glucose (mg/dL) 133 H (70-110) mg/dL Microbiology - Last 24 Hours (Table) 10/09/23 17:00 Blood Culture - Preliminary Blood 10/09/23 14:26 Blood Culture - Preliminary Blood 10/09/23 22:30 Gram Stain - Preliminary Sputum Assessment and Plan Assessment: Acute hypoxemic respiratory failure, secondary to bibasilar community acquired pneumonia. Acute COPD exacerbation, secondary to above. Leukocytosis, secondary to above. Hyponatremia. Elevated troponins, likely related to supply/demand mismatch. Coronary artery disease. Benign essential hypertension. Hyperlipidemia. Former tobacco smoker. Plan: Plan dated 10/11/2023. The patient is seen today in room 367. On 2 L, saturation is 96%. On room air, his saturations are below 90%. Patient will have a pro-calcitonin level drawn. In addition, the patient continues on azithromycin and Rocephin. Labs, x-rays, and medications are all reviewed. The patient's overall prognosis remains guarded. We will continue to follow along, and make recommendations. Time with Patient: Less than 30
[2023-10-11 17:01] LABS: Glucose,Whole Blood 143 mg/dL (70-110)
--- NOTE | 2023-10-11 17:17 | P.PN ---
Subjective Progress Note Date: 10/11/23 (delayed charting seen at 1255) Patient is a 78-year-old male with known CAD status post stenting, hypertension, hyperlipidemia, COPD, and congestive heart failure unknown type who presetned to the ER with complaints of shortness of breath. In the emergency department he was found to be hypoxic at 78% on room air and required6 L O2. He was tachypneic at 34 breaths per minute, tachycardic in the 134 bpm, and febrile with temperature 101.4F. Labs were remarkable for WBC count of 22 .0, sodium 126, chloride 89, bicarb of 21, elevated anion gap of 16, BUN of 23, Lactic acid of 2.3. and troponin of 0.255. Influenza A, influenza B, RSV, and Covid PCR were all negative. CT chest showed no evidence of pulmonary embolism but did show bibasilar pneumonia. Patient admitted with cardio consult. Pulmonary was consulted. He was continued on Rocephin and Zithromax. Pro- calcitonin came back elevated. Echocardiogram showed preserved ejection fraction with no wall motion abnormality. Patient seen and examined at bedside. He reports he is feeling about the same as yesterday. Continues to have a low appetite. Breathing is much better than on admission. No other complaints at this time. Vital signs reviewed General: ill appearing, no distress, appears at stated age Cardiovascular: S1S2 reg, no murmur, positive posterior tibial pulse bilateral, Lungs: Coarse breath sounds bilateral, no rhonchi, no rales , + belly breathing Abdominal: soft, nontender to palpation, no guarding, no appreciable organomegaly Ext: no gross muscle atrophy, no edema b/l lower extremities, no contractures Neuro: CN II-XI grossly intact, no focal neuro deficits Psych: Alert, oriented, appropriate affect Assessment/Plan: Community-acquired pneumonia with acute hypoxic respiratory failure and sepsis Acute exacerbation of COPD Hyponatremia secondary to dehydration and diuretic use - Zithromax 500 mg IV piggyback day #3, Rocephin 2 g IV daily day #3 -Hold hydrochlorothiazide -Await sputum culture -Normal saline at 75 mL/h - repeat BMP in AM to monitor sodium -Pulmonary note reviewed: Continue with Rocephin and Zithromax. -Continue with DuoNeb's every 4 hours scheduled and every 2 hours as needed, Symbicort twice daily, Solu-Medrol 60 mg every 6 hours - repeat CXR in AM Type II non-STEMI secondary to severe sepsis History of CAD status post 3 vessel CABG, PAD with Bypass Hypertension Hyperlipidemia Moderate pulm HTN -Cardiology note reviewed-increase metoprolol to 50 mg daily. Will need extensive outpatient evaluation once acute illness resolved. -Echocardiogram with ejection fraction 55-60% and moderate pulmonary hypertension -Metoprolol 50 mg daily, aspirin 81 mg daily, Lipitor 21 mg daily Lactic acidosis, resolved. Imaging: None new Data Review: Labs reviewed from today include CBC and basic metabolic profile which are remarkable for white blood cell 12.4, sodium 132, pro-calcitonin is elevated at 1.26 DVT prophylaxis: Heparin SC Anticipated discharge date: Pending clinical course Anticipated discharge place: Pending clinical course This dictation was prepared using [employer] voice recognition software. Though every attempt is made to correct errors during dictation some may still exist. Objective - Vital Signs Vital signs: Vital Signs Temp 97.4 F L 10/11/23 15:25 Pulse 94 10/11/23 17:02 Resp 18 10/11/23 15:25 BP 155/72 10/11/23 17:02 Pulse Ox 94 L 10/11/23 15:25 FiO2 Intake & Output 10/10/23 10/11/23 10/11/23 18:59 06:59 18:59 Intake Total 780 Balance 780 Intake: Oral 780 Other: Voiding Method Urinal Urinal Urinal # Voids 1 2 1 - Labs CBC & Chem 7: 10/11/23 07:58 10/11/23 07:58 Labs: Abnormal Lab Results - Last 24 Hours (Table) 10/10/23 10/10/23 10/11/23 Range/Units 17:51 20:40 06:08 WBC (3.8-10.6) k/uL Sodium 129 L (137-145) mmol/L Chloride 97 L (98-107) mmol/L Carbon Dioxide 21 L (22-30) mmol/L BUN 24 H (9-20) mg/dL Creatinine 0.57 L (0.66-1.25) mg/dL Glucose 203 H (74-99) mg/dL POC Glucose (mg/dL) 166 H 123 H (70-110) mg/dL Procalcitonin (0.02-0.09) ng/mL 10/11/23 10/11/23 10/11/23 Range/Units 07:58 07:58 07:58 WBC 12.4 H (3.8-10.6) k/uL Sodium 132 L (137-145) mmol/L Chloride (98-107) mmol/L Carbon Dioxide 21 L (22-30) mmol/L BUN 25 H (9-20) mg/dL Creatinine 0.55 L (0.66-1.25) mg/dL Glucose 164 H (74-99) mg/dL POC Glucose (mg/dL) (70-110) mg/dL Procalcitonin 1.26 H (0.02-0.09) ng/mL 10/11/23 10/11/23 Range/Units 11:47 16:49 WBC (3.8-10.6) k/uL Sodium (137-145) mmol/L Chloride (98-107) mmol/L Carbon Dioxide (22-30) mmol/L BUN (9-20) mg/dL Creatinine (0.66-1.25) mg/dL Glucose (74-99) mg/dL POC Glucose (mg/dL) 133 H 143 H (70-110) mg/dL Procalcitonin (0.02-0.09) ng/mL Microbiology - Last 24 Hours (Table) 10/09/23 17:00 Blood Culture - Preliminary Blood 10/09/23 14:26 Blood Culture - Preliminary Blood
[2023-10-11] MEDS: ATORVASTATIN 20 MG TAB PO SCH (21:10)
[2023-10-11] MEDS: LORATADINE 10 MG TAB PO SCH (21:10)
[2023-10-11 21:22] LABS: Glucose,Whole Blood 174 mg/dL (70-110)
[2023-10-12] MEDS: HEPARIN SODIUM,PORCINE 5,000 UNIT/ML 1 ML VIAL SQ SCH ×3 (00:13→17:21)
[2023-10-12] MEDS: methylPREDNISolone SOD SUCCI 125 MG/2 ML VIAL IV SCH ×4 (00:13→17:20)
[2023-10-12] MEDS: SODIUM CHLORIDE 0.9% 1,000 ML IV SCH ×2 (04:12→20:30)
[2023-10-12 06:14] LABS: Glucose,Whole Blood 120 mg/dL (70-110)
[2023-10-12] MEDS: IPRATROPIUM-ALBUTEROL 3 ML NEB INHALATION SCH ×4 (08:17→20:12)
[2023-10-12] MEDS: SYMBICORT 160-4.5 MCG INHALER INHALATION SCH ×2 (08:17→20:12)
[2023-10-12] MEDS: ASPIRIN 81 MG PO SCH (08:41)
[2023-10-12] MEDS: PANTOPRAZOLE 40 MG TABLET PO SCH (08:41)
[2023-10-12] MEDS: LOSARTAN 50 MG TAB PO SCH (08:41)
[2023-10-12] MEDS: METOPROLOL SUCCINATE (ER) 50 MG TAB.ER.24H PO SCH (08:41)
[2023-10-12] MEDS: MONTELUKAST 10 MG TAB PO SCH (08:44)
[2023-10-12 09:55] LABS: HCT 39.9 % (39.0-53.0); HGB 13.1 gm/dL (13.0-17.5); MCH 30.9 pg (25.0-35.0); MCHC 32.7 g/dL (31.0-37.0); MCV 94.5 fL (80.0-100.0); Mean Platelet Volume 8.1; Platelet Count 227 k/uL (150-450); RBC 4.23 m/uL (4.30-5.90); RDW 13.2 % (11.5-15.5); WBC 9.7 k/uL (3.8-10.6)
[2023-10-12 10:16] LABS: African American GFR (CKD) >90 (>60 ml/min/1.73 sqM); Anion Gap 10 mmol/L; Blood Urea Nitrogen 30 mg/dL (9-20); Carbon Dioxide 23 mmol/L (22-30); Chloride 102 mmol/L (98-107); Glucose 173 mg/dL (74-99); Non-African American GFR(CKD) >90 (>60 ml/min/1.73 sqM); Potassium 4.3 mmol/L (3.5-5.1); Sodium 135 mmol/L (137-145)
[2023-10-12] MEDS: AZITHROMYCIN 500 MG in SODIUM CHLORIDE 0.9% 250 ML IVPB SCH (10:23)
[2023-10-12 11:51] LABS: Glucose,Whole Blood 165 mg/dL (70-110)
--- NOTE | 2023-10-12 14:09 | P.PN ---
Subjective HISTORY OF PRESENT ILLNESS: This is a 78-year-old male with a past medical history significant for hypertension, hyperlipidemia, peripheral arterial disease with bypass in 2011 and coronary artery disease with three-vessel CABG in 2016. Patient used to follow in the office with Dr. Angel but has not been seen since April 2020. We have been asked to see the patient in consultation for elevated troponins patient presented to the hospital with a chief complaint of shortness of breath. The patient states he has been feeling short of breath for the past 4 days. He denied having any chest pain or pressure. He denied having any dizziness or lightheadedness. Denied any fever or chills. Patient is being treated for acute COPD exacerbation and bilateral pneumonia. Patient examined at the bedside. He reports improvement in his shortness of breath at the time of examination. He denies any chest pain or pressure. He reports pain in his calfs with ambulation. He states he has been moving around a lot over the last couple years and has not been able to consistently follow with a brain wave technician. He states he is now back living in [place] for good and is agreeable to following with cardiology. * EKG reveals sinus tachycardia with PVCs * Chest xray patchy left perihilar and left lower lobe infiltrate felt to ref lect pneumonia * CTA negative for pulmonary embolus and. Bibasilar pneumonia noted.. * Laboratory data: Troponin 0.255. 0.2188. 0.125. * Current home cardiac medications include simvastatin 20 mg at night and losartan -hydrochlorothiazide 50 mg12.5 mg daily * No previous echocardiogram or cardiac catheterization available EMR for review 10/11/2023 Patient examined this morning at the bedside. Patient currently denies chest pain or pressure. He reports mild shortness of breath. Vital signs are stable. Telemetry reveals sinus mechanism. Echocardiogram performed revealing ejection fraction 55-60%, moderate pulmonary hypertension, mild TR 10/12/2023 Patient examined this morning at the bedside. Patient currently denies chest pain or pressure. He reports improvement in his shortness of breath. Vital signs are stable. PHYSICAL EXAM: VITAL SIGNS: Reviewed. GENERAL: Well-developed in no acute distress. HEENT: Head is normocephalic. Pupils are equal, round. Sclerae anicteric. Mucous membranes of the mouth are moist. Neck supple. No JVD or thyromegaly LUNGS: Respirations even and unlabored. Diminished to auscultation bilaterally. HEART: Regular rate and rhythm. S1 and S2 heard. ABDOMEN: Soft. Nondistended. Nontender. EXTREMITIES: Normal range of motion. No clubbing or cyanosis. Peripheral pulses intact, although diminished. No lower extremity edema NEUROLOGIC: Awake and alert. Oriented x 3. ASSESSMENT: Shortness of breath Bibasilar pneumonia Acute COPD exacerbation Acute hypoxic respiratory failure Leukocytosis Abnormal troponins, likely type II CT secondary to oxygen supply and demand mismatch Coronary artery disease with previous three-vessel CABG in 2016 Peripheral arterial disease with previous bypass in 2010 Claudication Hypertension Hyperlipidemia Moderate pulmonary hypertension PLAN: Continue current cardiac medications Treatment of pneumonia per primary medicine Patient will require outpatient follow-up post discharge as he has not had any cardiac testing performed in the last couple years. Will likely require outpatient cardiac cath to assess coronaries and grafts as patient thinks one of his grafts has closed on his last cardiac cath. Also, recommend outpatient right heart cath in addition to left heart cath secondary to moderate pulmonary hypertension Additionally patient is complaining of claudication and recommend further evaluation of PAD at his follow up visit in the office. Patient is currently stable from a cardiac perspective Further recommendations pending patient's course Nurse practitioner note has been reviewed by physician. Signing provider agrees with the documented findings, assessment, and plan of care. Objective - Vital Signs Vital signs: Vital Signs Temp 97.8 F 10/12/23 11:21 Pulse 97 10/12/23 11:21 Resp 18 10/12/23 13:41 BP 147/79 10/12/23 11:21 Pulse Ox 96 10/12/23 11:21 FiO2 Intake & Output 10/11/23 10/12/23 10/12/23 18:59 06:59 18:59 Intake Total 0 238 Output Total 175 Balance 0 63 Intake: Oral 0 238 Output: Urine 175 Other: Voiding Method Urinal Urinal Urinal # Voids 1 2 1 - Labs CBC & Chem 7: 10/12/23 09:36 10/12/23 09:36 Labs: Abnormal Lab Results - Last 24 Hours (Table) 10/11/23 10/11/23 10/11/23 Range/Units 07:58 16:49 21:20 RBC (4.30-5.90) m/uL Sodium (137-145) mmol/L BUN (9-20) mg/dL Creatinine (0.66-1.25) mg/dL Glucose (74-99) mg/dL POC Glucose (mg/dL) 143 H 174 H (70-110) mg/dL Procalcitonin 1.26 H (0.02-0.09) ng/mL 10/12/23 10/12/23 10/12/23 Range/Units 06:12 09:36 09:36 RBC 4.23 L (4.30-5.90) m/uL Sodium 135 L (137-145) mmol/L BUN 30 H (9-20) mg/dL Creatinine 0.48 L (0.66-1.25) mg/dL Glucose 173 H (74-99) mg/dL POC Glucose (mg/dL) 120 H (70-110) mg/dL Procalcitonin (0.02-0.09) ng/mL 10/12/23 Range/Units 11:39 RBC (4.30-5.90) m/uL Sodium (137-145) mmol/L BUN (9-20) mg/dL Creatinine (0.66-1.25) mg/dL Glucose (74-99) mg/dL POC Glucose (mg/dL) 165 H (70-110) mg/dL Procalcitonin (0.02-0.09) ng/mL Microbiology - Last 24 Hours (Table) 10/09/23 22:30 Gram Stain - Preliminary Sputum Sputum Culture - Preliminary Klebsiella pneumoniae Streptococcus pneumoniae 10/09/23 17:00 Blood Culture - Preliminary Blood 10/09/23 14:26 Blood Culture - Preliminary Blood
--- NOTE | 2023-10-12 14:48 | P.PN ---
Subjective Progress Note Date: 10/12/23 Principal diagnosis: Respiratory failure. I am seeing this patient in consultation today in 10/10/2023 for suspected bilateral community acquired pneumonia. Patient is a 78-year-old white male with past medical history significant for coronary artery disease with previous heart catheterization and stents, CHF, hypertension, hyperlipidemia, and COPD. Not normally oxygen dependent. Patient is remote ex-smoker of over 20 years ago. Patient reportedly recently moved to [place] from [place]. Patient was brought in by EMS yesterday afternoon the chief complaint of shortness of breath. On arrival to the emergency room, he was hypoxic initially placed on 6 L/m nasal cannula. Chest CTA on arrival did not show any evidence of pulmonary embolism. It did show bibasilar infiltrates and consolidation suggestive of pneumonia. He admits shortness of breath over the last 4 days. This is been associated with a congested cough and yellow sputum production. He denies any f rajni, however, was febrile on arrival. T-max 101.4F. Denies any chest pain or hemoptysis. Denies heart palpitations or any lower extremity swelling. Admits reduced appetite. No nausea, vomiting or abdominal pain. He denies any known sick contacts. Patient is currently sitting up in bed, but 3 L per nasal cannula, in no acute distress. CBC on arrival showed leukocytosis with a WBC count of 22, hemoglobin 15.3, hematocrit 45.9, platelets 283. BMP on arrival shows sodium 126, potassium 5.1, chloride 89, serum bicarb 21, BUN 23, creatinine 0.84, glucose 86. Lactic acid level was 2.3. LFTs not elevated. Troponins elevated at 0.255, 0.218, and 0.125 respectively. NT proBNP was 2370. ECG shoes sinus tachycardia with frequent PVCs and no acute ischemic changes. Negative for influenza, RSV, COVID-19. Patient appears nontoxic and hemodynamically stable. He is being monitored on the cardiac stepdown unit. Progress note dated 10/11/2023. 78-year-old male admitted with a diagnosis of probable media acquired pneumonia, involving both lungs. The patient is seen today in room 367. Currently, the patient is on 2 L of oxygen, with saturations of 96%. When on room air, and saturation is only 88%. He continues on azithromycin, and Rocephin. The patient's getting saline at 20 mL an hour. Today, we will check a pro- calcitonin level. Sodium 132, potassium 4.2, chlorides 100, CO2 21, anion gap 11, BUN 25, and creatinine 0.55. Calcium, phosphorus, and magnesium are all normal. Progress note dated 10/12/2023. 78-year-old male admitted with a diagnosis of community acquired pneumonia. The patient currently is doing better. He is seen today in room 367. He is currently on 2 L of oxygen. He provided a sputum sample, which revealed both Streptococcus and Klebsiella. The chest x-ray was ordered for tomorrow. He continues on Rocephin. He's not receiving any IV fluids. When asked, the patient states that he's breathing better, and is feeling better. Currently la bs include a white count 9.7, hemoglobin 13.1, hematocrit 39.9, and a platelet count 227,000. Sodium 135, potassium 4.3, chlorides 102, CO2 23, BUN 30, creatinine 0.48. Glucose 173. Calcium is 9.0. Objective - Vital Signs Vital signs: Vital Signs Temp 97.8 F 10/12/23 11:21 Pulse 97 10/12/23 11:21 Resp 18 10/12/23 13:41 BP 147/79 10/12/23 11:21 Pulse Ox 96 10/12/23 11:21 FiO2 Intake & Output 10/11/23 10/12/23 10/12/23 18:59 06:59 18:59 Intake Total 0 238 Output Total 175 Balance 0 63 Intake: Oral 0 238 Output: Urine 175 Other: Voiding Method Urinal Urinal Urinal # Voids 1 2 1 - Exam No acute distress, oriented 3. The patient is currently on 2 L of oxygen. No audible wheezing or use of accessory muscles. HEENT examination is grossly unremarkable. Mucous membranes are moist. No oral lesions. Neck supple. Full range of motion. No adenopathy thyromegaly or neck vein distention. Cardiovascular examination reveals regular rhythm rate. S1-S2 normal. No S3 or S4. No discernible murmur noted. Heart sounds are distant. Heart rate 97 bpm. Lungs reveal scattered coarse rhonchi. Few scattered crackles. No wheezes. Breath sounds equal bilaterally. Saturations are 96 % on 2 L. Abdomen soft bowel sounds are heard. No masses or tenderness. Extremities are intact. No cyanosis clubbing or edema. Skin is without rash or lesion. Neurologic examination is brief but nonfocal. - Labs CBC & Chem 7: 10/12/23 09:36 10/12/23 09:36 Labs: Abnormal Lab Results - Last 24 Hours (Table) 10/11/23 10/11/23 10/11/23 Range/Units 07:58 16:49 21:20 RBC (4.30-5.90) m/uL Sodium (137-145) mmol/L BUN (9-20) mg/dL Creatinine (0.66-1.25) mg/dL Glucose (74-99) mg/dL POC Glucose (mg/dL) 143 H 174 H (70-110) mg/dL Procalcitonin 1.26 H (0.02-0.09) ng/mL 10/12/23 10/12/23 10/12/23 Range/Units 06:12 09:36 09:36 RBC 4.23 L (4.30-5.90) m/uL Sodium 135 L (137-145) mmol/L BUN 30 H (9-20) mg/dL Creatinine 0.48 L (0.66-1.25) mg/dL Glucose 173 H (74-99) mg/dL POC Glucose (mg/dL) 120 H (70-110) mg/dL Procalcitonin (0.02-0.09) ng/mL 10/12/23 Range/Units 11:39 RBC (4.30-5.90) m/uL Sodium (137-145) mmol/L BUN (9-20) mg/dL Creatinine (0.66-1.25) mg/dL Glucose (74-99) mg/dL POC Glucose (mg/dL) 165 H (70-110) mg/dL Procalcitonin (0.02-0.09) ng/mL Microbiology - Last 24 Hours (Table) 10/09/23 22:30 Gram Stain - Preliminary Sputum Sputum Culture - Preliminary Klebsiella pneumoniae Streptococcus pneumoniae 10/09/23 17:00 Blood Culture - Preliminary Blood 10/09/23 14:26 Blood Culture - Preliminary Blood Assessment and Plan Assessment: Acute hypoxemic respiratory failure, secondary to bibasilar community acquired pneumonia, with evidence of both Streptococcus, and Klebsiella, in the patient's sputum. Acute COPD exacerbation, secondary to above. Leukocytosis, secondary to above. Hyponatremia. Elevated troponins, likely related to supply/demand mismatch. Coronary artery disease. Benign essential hypertension. Hyperlipidemia. Former tobacco smoker. Plan: Plan dated 10/11/2023. The patient is seen today in room 367. On 2 L, saturation is 96%. On room air, his saturations are below 90%. Patient will have a pro-calcitonin level drawn. In addition, the patient continues on azithromycin and Rocephin. Labs, x-rays, and medications are all reviewed. The patient's overall prognosis remains guarded. We will continue to follow along, and make recommendations. Plan dated 10/12/2023. The patient is seen today in room 367. The sputum that the patient provided reveals evidence of both Streptococcus and Klebsiella. The patient continues on Rocephin. Labs, x-rays, and medications are reviewed. Clinically, the patient appears to be better. He states that he's feeling better, and breathing better. We will continue to follow the patient, and make recommendations along the way. Prognosis is certainly guarded. Time with Patient: Less than 30
--- NOTE | 2023-10-12 16:15 | P.PN ---
Subjective Progress Note Date: 10/12/23 (delayed charting seen at 1245) Patient is a 78-year-old male with known CAD status post stenting, hypertension, hyperlipidemia, COPD, and congestive heart failure unknown type who presetned to the ER with complaints of shortness of breath. In the emergency department he was found to be hypoxic at 78% on room air and required6 L O2. He was tachypneic at 34 breaths per minute, tachycardic in the 134 bpm, and febrile with temperature 101.4F. Labs were remarkable for WBC count of 22 .0, sodium 126, chloride 89, bicarb of 21, elevated anion gap of 16, BUN of 23, Lactic acid of 2.3. and troponin of 0.255. Influenza A, influenza B, RSV, and Covid PCR were all negative. CT chest showed no evidence of pulmonary embolism but did show bibasilar pneumonia. Patient admitted with cardio consult. Pulmonary was consulted. He was continued on Rocephin and Zithromax. Pro- calcitonin came back elevated. Echocardiogram showed preserved ejection fraction with no wall motion abnormality. Patient seen and examined at bedside. He is feeling better than yesterday. He continues to have some shortness of breath and productive cough. Vital signs reviewed General: non toxic, no distress, appears at stated age Cardiovascular: S1S2 reg, no murmur, positive posterior tibial pulse bilateral, Lungs: Coarse breath sounds bilateral, no rhonchi, no rales , + belly breathing Abdominal: soft, nontender to palpation, no guarding, no appreciable organomegaly Ext: no gross muscle atrophy, no edema b/l lower extremities, no contractures Neuro: CN II-XI grossly intact, no focal neuro deficits Psych: Alert, oriented, appropriate affect Assessment/Plan: Klebsiella and Streptococcus Community-acquired pneumonia with acute hypoxic respiratory failure and sepsis Acute exacerbation of COPD Hyponatremia secondary to dehydration and diuretic use, improving - Zithromax completed, Rocephin 2 g IV daily day #4 -Hold hydrochlorothiazide -Normal saline at 75 mL/h - repeat BMP in AM to monitor sodium -Pulmonary note reviewed: Continue with Rocephin and Zithromax. -Continue with DuoNeb's every 4 hours scheduled and every 2 hours as needed, Symbicort twice daily, Solu-Medrol 60 mg every 6 hours Type II non-STEMI secondary to severe sepsis History of CAD status post 3 vessel CABG, PAD with Bypass Hypertension Hyperlipidemia Moderate pulm HTN -Cardiology note reviewed: Outpatient follow-up. Continue current cardiac medications. -Echocardiogram with ejection fraction 55-60% and moderate pulmonary hypertension -Metoprolol 50 mg daily, aspirin 81 mg daily, Lipitor 20 mg daily Lactic acidosis, resolved. Imaging: None new Data Review: Laboratory from today include CBC and basic metabolic profile which are remarkable for white blood cell count 9.7, sodium 135, BUN 30, creatinine 0.48 DVT prophylaxis: Heparin SC Anticipated discharge date: in 24-[address]: home This dictation was prepared using [employer] voice recognition software. Though every attempt is made to correct errors during dictation some may still exist. Objective - Vital Signs Vital signs: Vital Signs Temp 97.8 F 10/12/23 11:21 Pulse 90 10/12/23 15:51 Resp 18 10/12/23 13:41 BP 147/79 10/12/23 11:21 Pulse Ox 96 10/12/23 11:21 FiO2 Intake & Output 10/11/23 10/12/23 10/12/23 18:59 06:59 18:59 Intake Total 0 238 Output Total 175 Balance 0 63 Intake: Oral 0 238 Output: Urine 175 Other: Voiding Method Urinal Urinal Urinal # Voids 1 2 1 - Labs CBC & Chem 7: 10/12/23 09:36 10/12/23 09:36 Labs: Abnormal Lab Results - Last 24 Hours (Table) 10/11/23 10/11/23 10/11/23 Range/Units 07:58 16:49 21:20 RBC (4.30-5.90) m/uL Sodium (137-145) mmol/L BUN (9-20) mg/dL Creatinine (0.66-1.25) mg/dL Glucose (74-99) mg/dL POC Glucose (mg/dL) 143 H 174 H (70-110) mg/dL Procalcitonin 1.26 H (0.02-0.09) ng/mL 10/12/23 10/12/23 10/12/23 Range/Units 06:12 09:36 09:36 RBC 4.23 L (4.30-5.90) m/uL Sodium 135 L (137-145) mmol/L BUN 30 H (9-20) mg/dL Creatinine 0.48 L (0.66-1.25) mg/dL Glucose 173 H (74-99) mg/dL POC Glucose (mg/dL) 120 H (70-110) mg/dL Procalcitonin (0.02-0.09) ng/mL 10/12/23 Range/Units 11:39 RBC (4.30-5.90) m/uL Sodium (137-145) mmol/L BUN (9-20) mg/dL Creatinine (0.66-1.25) mg/dL Glucose (74-99) mg/dL POC Glucose (mg/dL) 165 H (70-110) mg/dL Procalcitonin (0.02-0.09) ng/mL Microbiology - Last 24 Hours (Table) 10/09/23 22:30 Gram Stain - Preliminary Sputum Sputum Culture - Preliminary Klebsiella pneumoniae Streptococcus pneumoniae 10/09/23 17:00 Blood Culture - Preliminary Blood 10/09/23 14:26 Blood Culture - Preliminary Blood
[2023-10-12 16:50] LABS: Glucose,Whole Blood 150 mg/dL (70-110)
[2023-10-12 20:01] LABS: Glucose,Whole Blood 153 mg/dL (70-110)
[2023-10-12] MEDS: ATORVASTATIN 20 MG TAB PO SCH (20:30)
[2023-10-12] MEDS: LORATADINE 10 MG TAB PO SCH (20:30)
[2023-10-13] MEDS: methylPREDNISolone SOD SUCCI 125 MG/2 ML VIAL IV SCH ×2 (00:30→05:12)
[2023-10-13] MEDS: HEPARIN SODIUM,PORCINE 5,000 UNIT/ML 1 ML VIAL SQ SCH ×4 (00:30→23:45)
[2023-10-13] MEDS: SODIUM CHLORIDE 0.9% 1,000 ML IV SCH (05:03)
[2023-10-13 06:26] LABS: Glucose,Whole Blood 171 mg/dL (70-110)
[2023-10-13] MEDS: LOSARTAN 50 MG TAB PO SCH (08:35)
[2023-10-13] MEDS: ASPIRIN 81 MG PO SCH (08:35)
[2023-10-13] MEDS: METOPROLOL SUCCINATE (ER) 50 MG TAB.ER.24H PO SCH (08:35)
[2023-10-13] MEDS: MONTELUKAST 10 MG TAB PO SCH (08:35)
[2023-10-13] MEDS: PANTOPRAZOLE 40 MG TABLET PO SCH (08:35)
--- NOTE | 2023-10-13 08:54 | XR ---
EXAMINATION TYPE: XR chest 1V portable DATE OF EXAM: 10/13/2023 COMPARISON: 10/09/2023 INDICATION: Pneumonia TECHNIQUE: Single frontal view of the chest is obtained. FINDINGS: The heart size is normal. The pulmonary vasculature is prominent. Diffuse increased lung markings are present in the mid and lower lung barlow. Correlate for pulmonary edema. No suspicious focal consolidations are evident. IMPRESSION: 1. Mild pulmonary edema.
[2023-10-13] MEDS: IPRATROPIUM-ALBUTEROL 3 ML NEB INHALATION SCH ×4 (09:18→21:00)
[2023-10-13] MEDS: SYMBICORT 160-4.5 MCG INHALER INHALATION SCH ×2 (09:18→21:00)
[2023-10-13] MEDS: predniSONE 20 MG TAB PO SCH (10:02)
[2023-10-13 11:04] LABS: HCT 41.1 % (39.0-53.0); HGB 13.1 gm/dL (13.0-17.5); MCHC 31.8 g/dL (31.0-37.0); MCV 94.4 fL (80.0-100.0); Mean Platelet Volume 8.3; Platelet Count 239 k/uL (150-450); RBC 4.36 m/uL (4.30-5.90); RDW 13.4 % (11.5-15.5); WBC 8.9 k/uL (3.8-10.6)
--- NOTE | 2023-10-13 11:20 | P.PN ---
Subjective Progress Note Date: 10/13/23 Principal diagnosis: Respiratory failure. I am seeing this patient in consultation today in 10/10/2023 for suspected bilateral community acquired pneumonia. Patient is a 78-year-old white male with past medical history significant for coronary artery disease with previous heart catheterization and stents, CHF, hypertension, hyperlipidemia, and COPD. Not normally oxygen dependent. Patient is remote ex-smoker of over 20 years ago. Patient reportedly recently moved to [place] from [place]. Patient was brought in by EMS yesterday afternoon the chief complaint of shortness of breath. On arrival to the emergency room, he was hypoxic initially placed on 6 L/m nasal cannula. Chest CTA on arrival did not show any evidence of pulmonary embolism. It did show bibasilar infiltrates and consolidation suggestive of pneumonia. He admits shortness of breath over the last 4 days. This is been associated with a congested cough and yellow sputum production. He denies any f rajni, however, was febrile on arrival. T-max 101.4F. Denies any chest pain or hemoptysis. Denies heart palpitations or any lower extremity swelling. Admits reduced appetite. No nausea, vomiting or abdominal pain. He denies any known sick contacts. Patient is currently sitting up in bed, but 3 L per nasal cannula, in no acute distress. CBC on arrival showed leukocytosis with a WBC count of 22, hemoglobin 15.3, hematocrit 45.9, platelets 283. BMP on arrival shows sodium 126, potassium 5.1, chloride 89, serum bicarb 21, BUN 23, creatinine 0.84, glucose 86. Lactic acid level was 2.3. LFTs not elevated. Troponins elevated at 0.255, 0.218, and 0.125 respectively. NT proBNP was 2370. ECG shoes sinus tachycardia with frequent PVCs and no acute ischemic changes. Negative for influenza, RSV, COVID-19. Patient appears nontoxic and hemodynamically stable. He is being monitored on the cardiac stepdown unit. Progress note dated 10/11/2023. 78-year-old male admitted with a diagnosis of probable media acquired pneumonia, involving both lungs. The patient is seen today in room 367. Currently, the patient is on 2 L of oxygen, with saturations of 96%. When on room air, and saturation is only 88%. He continues on azithromycin, and Rocephin. The patient's getting saline at 20 mL an hour. Today, we will check a pro- calcitonin level. Sodium 132, potassium 4.2, chlorides 100, CO2 21, anion gap 11, BUN 25, and creatinine 0.55. Calcium, phosphorus, and magnesium are all normal. Progress note dated 10/12/2023. 78-year-old male admitted with a diagnosis of community acquired pneumonia. The patient currently is doing better. He is seen today in room 367. He is currently on 2 L of oxygen. He provided a sputum sample, which revealed both Streptococcus and Klebsiella. The chest x-ray was ordered for tomorrow. He continues on Rocephin. He's not receiving any IV fluids. When asked, the patient states that he's breathing better, and is feeling better. Currently la bs include a white count 9.7, hemoglobin 13.1, hematocrit 39.9, and a platelet count 227,000. Sodium 135, potassium 4.3, chlorides 102, CO2 23, BUN 30, creatinine 0.48. Glucose 173. Calcium is 9.0. Progress note dated 10/13/2023. 78-year-old male, with a diagnosis of community acquired pneumonia. The patient is seen today in room 367. He's on 2 L of oxygen. Is getting saline at 75 mL an hour. He had a chest x-ray, which appears improved. His sputum was positive for Klebsiella and Streptococcus. The Solu-Medrol today will be changed to prednisone 40 mg a day. White count 8.9, he will 13.1, hematocrit 41.1, and platelet count 239,000. Objective - Vital Signs Vital signs: Vital Signs Temp 98.4 F 10/13/23 08:34 Pulse 99 10/13/23 09:27 Resp 20 10/13/23 08:48 BP 189/77 10/13/23 08:34 Pulse Ox 92 L 10/13/23 09:18 FiO2 Intake & Output 10/12/23 10/13/23 10/13/23 18:59 06:59 18:59 Intake Total 598 Output Total 475 Balance 123 Intake: Oral 598 Output: Urine 475 Other: Voiding Method Urinal Toilet Toilet Urinal Urinal # Voids 1 2 2 - Exam No acute distress, oriented 3. The patient is currently on 2 L of oxygen. No audible wheezing or use of accessory muscles. HEENT examination is grossly unremarkable. Mucous membranes are moist. No oral lesions. Neck supple. Full range of motion. No adenopathy thyromegaly or neck vein distention. Cardiovascular examination reveals regular rhythm rate. S1-S2 normal. No S3 or S4. No discernible murmur noted. Heart sounds are distant. Heart rate 82 bpm. Lungs reveal scattered coarse rhonchi. Few scattered crackles and wheezes. Breath sounds equal bilaterally. Saturations are 95 % on 2 L. Abdomen soft bowel sounds are heard. No masses or tenderness. Extremities are intact. No cyanosis clubbing or edema. Skin is without rash or lesion. Neurologic examination is brief but nonfocal. - Labs CBC & Chem 7: 10/13/23 10:37 10/12/23 09:36 Labs: Abnormal Lab Results - Last 24 Hours (Table) 10/12/23 10/12/23 10/12/23 Range/Units 11:39 16:45 20:00 POC Glucose (mg/dL) 165 H 150 H 153 H (70-110) mg/dL 10/13/23 Range/Units 06:24 POC Glucose (mg/dL) 171 H (70-110) mg/dL Microbiology - Last 24 Hours (Table) 10/09/23 22:30 Gram Stain - Preliminary Sputum Sputum Culture - Preliminary Klebsiella pneumoniae Streptococcus pneumoniae Katelynn albicans 10/09/23 17:00 Blood Culture - Preliminary Blood 10/09/23 14:26 Blood Culture - Preliminary Blood Assessment and Plan Assessment: Acute hypoxemic respiratory failure, secondary to bibasilar community acquired pneumonia, with evidence of both Streptococcus, and Klebsiella, in the patient's sputum. Acute COPD exacerbation, secondary to above. Leukocytosis, secondary to above. Hyponatremia. Elevated troponins, likely related to supply/demand mismatch. Coronary artery disease. Benign essential hypertension. Hyperlipidemia. Former tobacco smoker. Plan: Plan dated 10/11/2023. The patient is seen today in room 367. On 2 L, saturation is 96%. On room air, his saturations are below 90%. Patient will have a pro-calcitonin level drawn. In addition, the patient continues on azithromycin and Rocephin. Labs, x-rays, and medications are all reviewed. The patient's overall prognosis remains guarded. We will continue to follow along, and make recommendations. Plan dated 10/12/2023. The patient is seen today in room 367. The sputum that the patient provided reveals evidence of both Streptococcus and Klebsiella. The patient continues on Rocephin. Labs, x-rays, and medications are reviewed. Clinically, the patient appears to be better. He states that he's feeling better, and breathing better. We will continue to follow the patient, and make recommendations along the way. Prognosis is certainly guarded. Plan dated 10/13/2023. The patient is seen today in room 367. Sputum evaluation revealed both Streptococcus and Klebsiella. The patient continues on Rocephin. Clinically, he feels better. He is much less short of breath. He is coughing less, with less chest congestion. Labs, x-rays, and medications are reviewed. The patient's prognosis remains guarded. The patient is receiving saline at 75 mL an hour. This will be discontinued. He's eating well and drinking well. Time with Patient: Less than 30
[2023-10-13 11:29] LABS: African American GFR (CKD) >90 (>60 ml/min/1.73 sqM); Anion Gap 8 mmol/L; Blood Urea Nitrogen 30 mg/dL (9-20); Carbon Dioxide 27 mmol/L (22-30); Chloride 100 mmol/L (98-107); Glucose 148 mg/dL (74-99); Magnesium 2.2 mg/dL (1.6-2.3); Non-African American GFR(CKD) >90 (>60 ml/min/1.73 sqM); Potassium 4.6 mmol/L (3.5-5.1); Sodium 135 mmol/L (137-145)
--- NOTE | 2023-10-13 13:13 | P.PN ---
Subjective Progress Note Date: 10/13/23 Hospital course: Patient is a very pleasant 78-year-old male with a past medical history of known CAD status post CABG and stenting, hypertension, hyperlipidemia, peripheral artery disease with bypass, COPD, and HFpEF. He presetned to the ER on 10/09/23 with complaints of shortness of breath. In the emergency department he was found to be hypoxic at 78% on room air and required6 L O2. He was tachypneic at 34 breaths per minute, tachycardic in the 134 bpm, and febrile with temperature 101.4F. Labs were remarkable for WBC count of 22.0, sodium 126, chloride 89, bicarb of 21, elevated anion gap of 16, BUN of 23, Lactic acid of 2.3. and troponin of 0.255. Influenza A, influenza B, RSV, and Covid PCR were all negative. CT chest showed no evidence of pulmonary embolism but did show bibasilar pneumonia. Patient admitted with consultation to cardiology and pulmonology. He was continued on Rocephin and Zithromax. Pro-calcitonin came back elevated. Echocardiogram showed preserved ejection fraction of 55-60%, moderate pulmonary hypertension, and no wall motion abnormality. Physical exam: Patient seen and examined at bedside. Patient seen and fully evaluated at bed side this morning. He reports feeling better, but states not back to baseline. Patient reports he is doing well at rest but continues to have significant shortness of breath with any exertion. General: non toxic, no distress, appears at stated age Derm: warm, dry Head: atraumatic, normocephalic, symmetric Eyes: EOMI, no lid lag, anicteric sclera Mouth: no lip lesion, mucus membranes moist Cardiovascular: S1S2 reg, no murmur, positive posterior tibial pulses bilaterally. Lungs: Lungs diminished with diffuse expiratory wheezes and scattered rhonchi, currently on 2 L O2 via nasal cannula with no accessory muscle usage and no signs of acute respiratory distress. Abdominal: soft, nontender to palpation, no guarding, no appreciable organomegaly Ext: no gross muscle atrophy, no edema, no contractures Neuro: CN II-XI grossly intact, no focal neuro deficits Psych: Alert, oriented, appropriate affect Assessment and Plan of Care: Klebsiella and Streptococcus Community-acquired pneumonia with acute hypoxic respiratory failure and sepsis Acute exacerbation of COPD Hyponatremia secondary to dehydration and diuretic use, resolved after IV fluid hydration and holding of diuretic. -Sputum cultures positive for Klebsiella pneumoniae, Streptococcus pneumoniae and Katelynn albicans -Blood cultures showing no growth to date. -Zithromax course completed and pt is currently on day #5 of Rocephin 2 g IVPB daily -Continue to Hold hydrochlorothiazide -IV fluids discontinued, patient tolerating oral intake well and sodium 135 -Pulmonary following, recommending changing Solu-Medrol to oral prednisone 40 mg daily -Continue with DuoNeb's 4 times daily scheduled and every 2 hours as needed, Sy mbicort 1604.5 g inhaler twice daily, Singulair 10 mg daily, and prednisone 40 mg daily Type II non-STEMI secondary to severe sepsis History of CAD status post 3 vessel CABG History of PAD status post Bypass Moderate pulm HTN Hypertension Hyperlipidemia -Cardiology note reviewed: Outpatient follow-up. Continue current cardiac medications. -Echocardiogram with ejection fraction 55-60% and moderate pulmonary hypertension -Metoprolol 50 mg daily, aspirin 81 mg daily, Lipitor 20 mg daily, losartan 50 mg daily -Echo injury to persistently elevated blood pressures inadequately controlled and morning blood pressure 189/77 amlodipine 5 mg daily added to current blood pressure medication regimen. Lactic acidosis, resolved. Date and Imaging reviewed: -Chest x-ray reviewed showing mild pulmonary edema and upon personal review and comparison from x-ray completed 10/09/23, showing moderate improvement. -Labs completed and reviewed. CBC unremarkable showing WBC count of 8.9, hemoglobin 13.1, and platelet count of 239. BMP showing resolution of hyponatremia with sodium of 135, and stable renal function with BUN of 30, creatinine 0.42, and GFR greater than 90. Exam normal findings at 2.2. -Vital signs reviewed. Blood pressure elevated at 189/77, heart rate 103, respiratory rate 17, temp 98.4F, and SpO2 of 92% on 2 L O2 via nasal cannula. DVT prophylaxis: Heparin SC Anticipated discharge date: Likely in the next 24-[address]: Home Patient was seen independently by Nurse Pracitioner. This document was prepared using [employer] dictation software. Please allow for errors in [employer], while rare they do occur. Objective - Vital Signs Vital signs: Vital Signs Temp 97.7 F 10/13/23 04:00 Pulse 94 10/13/23 04:00 Resp 18 10/13/23 04:00 BP 149/78 10/13/23 04:00 Pulse Ox 96 10/13/23 04:00 FiO2 Intake & Output 10/12/23 10/13/23 10/13/23 18:59 06:59 18:59 Intake Total 598 Output Total 475 Balance 123 Intake: Oral 598 Output: Urine 475 Other: Voiding Method Urinal Toilet Urinal # Voids 1 2 - Labs CBC & Chem 7: 10/13/23 10:37 10/13/23 10:37 Labs: Abnormal Lab Results - Last 24 Hours (Table) 10/12/23 10/12/23 10/12/23 Range/Units 09:36 09:36 11:39 RBC 4.23 L (4.30-5.90) m/uL Sodium 135 L (137-145) mmol/L BUN 30 H (9-20) mg/dL Creatinine 0.48 L (0.66-1.25) mg/dL Glucose 173 H (74-99) mg/dL POC Glucose (mg/dL) 165 H (70-110) mg/dL 10/12/23 10/12/23 10/13/23 Range/Units 16:45 20:00 06:24 RBC (4.30-5.90) m/uL Sodium (137-145) mmol/L BUN (9-20) mg/dL Creatinine (0.66-1.25) mg/dL Glucose (74-99) mg/dL POC Glucose (mg/dL) 150 H 153 H 171 H (70-110) mg/dL Microbiology - Last 24 Hours (Table) 10/09/23 17:00 Blood Culture - Preliminary Blood 10/09/23 14:26 Blood Culture - Preliminary Blood 10/09/23 22:30 Gram Stain - Preliminary Sputum Sputum Culture - Preliminary Klebsiella pneumoniae Streptococcus pneumoniae
[2023-10-13] MEDS: amLODIPine 5 MG TAB PO SCH (13:23)
[2023-10-13] MEDS: LORATADINE 10 MG TAB PO SCH (20:21)
[2023-10-13] MEDS: ATORVASTATIN 20 MG TAB PO SCH (20:21)
[2023-10-14 06:14] LABS: Glucose,Whole Blood 79 mg/dL (70-110)
[2023-10-14] MEDS: SYMBICORT 160-4.5 MCG INHALER INHALATION SCH ×2 (09:05→21:10)
[2023-10-14] MEDS: IPRATROPIUM-ALBUTEROL 3 ML NEB INHALATION SCH ×4 (09:05→21:10)
[2023-10-14] MEDS: MONTELUKAST 10 MG TAB PO SCH (09:48)
[2023-10-14] MEDS: METOPROLOL SUCCINATE (ER) 50 MG TAB.ER.24H PO SCH (09:48)
[2023-10-14] MEDS: amLODIPine 5 MG TAB PO SCH (09:48)
[2023-10-14] MEDS: PANTOPRAZOLE 40 MG TABLET PO SCH (09:48)
[2023-10-14] MEDS: LOSARTAN 50 MG TAB PO SCH (09:48)
[2023-10-14] MEDS: ASPIRIN 81 MG PO SCH (09:48)
[2023-10-14] MEDS: predniSONE 20 MG TAB PO SCH (09:48)
[2023-10-14] MEDS: HEPARIN SODIUM,PORCINE 5,000 UNIT/ML 1 ML VIAL SQ SCH ×3 (09:49→23:43)
--- NOTE | 2023-10-14 11:26 | P.PN ---
Subjective Progress Note Date: 10/14/23 Principal diagnosis: Respiratory failure. I am seeing this patient in consultation today in 10/10/2023 for suspected bilateral community acquired pneumonia. Patient is a 78-year-old white male with past medical history significant for coronary artery disease with previous heart catheterization and stents, CHF, hypertension, hyperlipidemia, and COPD. Not normally oxygen dependent. Patient is remote ex-smoker of over 20 years ago. Patient reportedly recently moved to [place] from [place]. Patient was brought in by EMS yesterday afternoon the chief complaint of shortness of breath. On arrival to the emergency room, he was hypoxic initially placed on 6 L/m nasal cannula. Chest CTA on arrival did not show any evidence of pulmonary embolism. It did show bibasilar infiltrates and consolidation suggestive of pneumonia. He admits shortness of breath over the last 4 days. This is been associated with a congested cough and yellow sputum production. He denies any f rajni, however, was febrile on arrival. T-max 101.4F. Denies any chest pain or hemoptysis. Denies heart palpitations or any lower extremity swelling. Admits reduced appetite. No nausea, vomiting or abdominal pain. He denies any known sick contacts. Patient is currently sitting up in bed, but 3 L per nasal cannula, in no acute distress. CBC on arrival showed leukocytosis with a WBC count of 22, hemoglobin 15.3, hematocrit 45.9, platelets 283. BMP on arrival shows sodium 126, potassium 5.1, chloride 89, serum bicarb 21, BUN 23, creatinine 0.84, glucose 86. Lactic acid level was 2.3. LFTs not elevated. Troponins elevated at 0.255, 0.218, and 0.125 respectively. NT proBNP was 2370. ECG shoes sinus tachycardia with frequent PVCs and no acute ischemic changes. Negative for influenza, RSV, COVID-19. Patient appears nontoxic and hemodynamically stable. He is being monitored on the cardiac stepdown unit. Progress note dated 10/11/2023. 78-year-old male admitted with a diagnosis of probable media acquired pneumonia, involving both lungs. The patient is seen today in room 367. Currently, the patient is on 2 L of oxygen, with saturations of 96%. When on room air, and saturation is only 88%. He continues on azithromycin, and Rocephin. The patient's getting saline at 20 mL an hour. Today, we will check a pro- calcitonin level. Sodium 132, potassium 4.2, chlorides 100, CO2 21, anion gap 11, BUN 25, and creatinine 0.55. Calcium, phosphorus, and magnesium are all normal. Progress note dated 10/12/2023. 78-year-old male admitted with a diagnosis of community acquired pneumonia. The patient currently is doing better. He is seen today in room 367. He is currently on 2 L of oxygen. He provided a sputum sample, which revealed both Streptococcus and Klebsiella. The chest x-ray was ordered for tomorrow. He continues on Rocephin. He's not receiving any IV fluids. When asked, the patient states that he's breathing better, and is feeling better. Currently la bs include a white count 9.7, hemoglobin 13.1, hematocrit 39.9, and a platelet count 227,000. Sodium 135, potassium 4.3, chlorides 102, CO2 23, BUN 30, creatinine 0.48. Glucose 173. Calcium is 9.0. Progress note dated 10/13/2023. 78-year-old male, with a diagnosis of community acquired pneumonia. The patient is seen today in room 367. He's on 2 L of oxygen. Is getting saline at 75 mL an hour. He had a chest x-ray, which appears improved. His sputum was positive for Klebsiella and Streptococcus. The Solu-Medrol today will be changed to prednisone 40 mg a day. White count 8.9, he will 13.1, hematocrit 41.1, and platelet count 239,000. Progress note dated 10/14/2023. 78-year-old male with a diagnosis of community acquired pneumonia. The patient is again seen today in room 367. He states that he's feeling much better. He continues on oxygen at 2 L. He's not receiving any IV fluids. He continues on Rocephin. Sputum was positive for both Klebsiella and Streptococcus. No new labs today other than a glucose of 79. Chest x-ray from October 13 has been reviewed. Objective - Vital Signs Vital signs: Vital Signs Temp 98.2 F 10/14/23 04:00 Pulse 94 10/14/23 09:20 Resp 20 10/14/23 04:00 BP 157/76 10/14/23 04:00 Pulse Ox 98 10/14/23 09:07 FiO2 Intake & Output 10/13/23 10/14/23 10/14/23 18:59 06:59 18:59 Intake Total 358 118 Balance 358 118 Intake: Oral 358 118 Other: Voiding Method Toilet Toilet Urinal Urinal # Voids 2 1 - Exam No acute distress, oriented 3. The patient is currently on 2 L of oxygen. No audible wheezing or use of accessory muscles. HEENT examination is grossly unremarkable. Mucous membranes are moist. No oral lesions. Neck supple. Full range of motion. No adenopathy thyromegaly or neck vein distention. Cardiovascular examination reveals regular rhythm rate. S1-S2 normal. No S3 or S4. No discernible murmur noted. Heart sounds are distant. Heart rate 90 bpm. Lungs reveal scattered coarse rhonchi. Few scattered crackles and wheezes. Breath sounds equal bilaterally. Saturations are 98 % on 2 L. Abdomen soft bowel sounds are heard. No masses or tenderness. Extremities are intact. No cyanosis clubbing or edema. Skin is without rash or lesion. Neurologic examination is brief but nonfocal. - Labs CBC & Chem 7: 10/13/23 10:37 10/13/23 10:37 Labs: Abnormal Lab Results - Last 24 Hours (Table) 10/13/23 Range/Units 10:37 Sodium 135 L (137-145) mmol/L BUN 30 H (9-20) mg/dL Creatinine 0.42 L (0.66-1.25) mg/dL Glucose 148 H (74-99) mg/dL Microbiology - Last 24 Hours (Table) 10/09/23 22:30 Gram Stain - Preliminary Sputum Sputum Culture - Preliminary Klebsiella pneumoniae Streptococcus pneumoniae Katelynn albicans Assessment and Plan Assessment: Acute hypoxemic respiratory failure, secondary to bibasilar community acquired pneumonia, with evidence of both Streptococcus, and Klebsiella, in the patient's sputum. Acute COPD exacerbation, secondary to above. Leukocytosis, secondary to above. Hyponatremia. Elevated troponins, likely related to supply/demand mismatch. Coronary artery disease. Benign essential hypertension. Hyperlipidemia. Former tobacco smoker. Plan: Plan dated 10/11/2023. The patient is seen today in room 367. On 2 L, saturation is 96%. On room air, his saturations are below 90%. Patient will have a pro-calcitonin level drawn. In addition, the patient continues on azithromycin and Rocephin. Labs, x-rays, and medications are all reviewed. The patient's overall prognosis remains guarded. We will continue to follow along, and make recommendations. Plan dated 10/12/2023. The patient is seen today in room 367. The sputum that the patient provided reveals evidence of both Streptococcus and Klebsiella. The patient continues on Rocephin. Labs, x-rays, and medications are reviewed. Clinically, the patient appears to be better. He states that he's feeling better, and breathing better. We will continue to follow the patient, and make recommendations along the way. Prognosis is certainly guarded. Plan dated 10/13/2023. The patient is seen today in room 367. Sputum evaluation revealed both Streptococcus and Klebsiella. The patient continues on Rocephin. Clinically, he feels better. He is much less short of breath. He is coughing less, with less chest congestion. Labs, x-rays, and medications are reviewed. The patient's prognosis remains guarded. The patient is receiving saline at 75 mL an hour. This will be discontinued. He's eating well and drinking well. Plan dated 10/14/2023. The patient continues to show daily improvement. I suspect that he may be discharged tomorrow. We will leave that up to the primary service. The patient is not receiving any IV fluids at this time. The patient is having 2 L by nasal cannula supplied. The patient is continuing on Rocephin. Labs, x-rays, and all medications are reviewed. The patient's overall prognosis remains guarded. He is eating and drinking well. Respiratory status and cardiovascular status are both stable. Time with Patient: Less than 30
[2023-10-14 12:04] LABS: Glucose,Whole Blood 90 mg/dL (70-110)
--- NOTE | 2023-10-14 14:00 | P.PN ---
Subjective Progress Note Date: 10/14/23 Hospital course: Patient is a very pleasant 78-year-old male with a past medical history of known CAD status post CABG and stenting, hypertension, hyperlipidemia, peripheral artery disease with bypass, COPD, and HFpEF. He presetned to the ER on 10/09/23 with complaints of shortness of breath. In the emergency department he was found to be hypoxic at 78% on room air and required6 L O2. He was tachypneic at 34 breaths per minute, tachycardic in the 134 bpm, and febrile with temperature 101.4F. Labs were remarkable for WBC count of 22.0, sodium 126, chloride 89, bicarb of 21, elevated anion gap of 16, BUN of 23, Lactic acid of 2.3. and troponin of 0.255. Influenza A, influenza B, RSV, and Covid PCR were all negative. CT chest showed no evidence of pulmonary embolism but did show bibasilar pneumonia. Patient admitted with consultation to cardiology and pulmonology. He was continued on Rocephin and Zithromax. Pro-calcitonin came back elevated. Echocardiogram showed preserved ejection fraction of 55-60%, moderate pulmonary hypertension, and no wall motion abnormality. Physical exam: Patient seen and fully evaluated at bedside this morning. He reports feeling b zuleyka and reports feeling as though he is breathing good this morning. He does report a little bit of shortness of breath with exertion still but otherwise feels that he is at baseline back to normal. Discussed with patient likely plans for discharge tomorrow. Orders place for a home oxygen evaluation.. Also had long discussion with patient regarding setting up home care and palliative care and patient in agreement, stating that is probably a good idea. General: non toxic, no distress, appears at stated age Derm: warm, dry Head: atraumatic, normocephalic, symmetric Eyes: EOMI, no lid lag, anicteric sclera Mouth: no lip lesion, mucus membranes moist Cardiovascular: S1S2 reg, no murmur, positive posterior tibial pulses bilaterally. Lungs: Lungs with equal air entry and diffuse expiratory wheezes. No rhonchi, rales, or crackles noted. Currently on 2 L O2 via nasal cannula with no ac cessory muscle usage and no signs of acute respiratory distress. Abdominal: soft, nontender to palpation, no guarding, no appreciable organomegaly Ext: no gross muscle atrophy, no edema, no contractures Neuro: CN II-XI grossly intact, no focal neuro deficits Psych: Alert, oriented, appropriate affect Assessment and Plan of Care: Klebsiella and Streptococcus Community-acquired pneumonia with acute hypoxic respiratory failure and sepsis Acute exacerbation of COPD Hyponatremia secondary to dehydration and diuretic use, resolved after IV fluid hydration and holding of diuretic. -Sputum cultures positive for Klebsiella pneumoniae, Streptococcus pneumoniae and Katelynn albicans -Blood cultures showing no growth to date. -Zithromax course completed and pt is currently on day #5 of Rocephin 2 g IVPB daily -Continue to Hold hydrochlorothiazide -IV fluids discontinued, patient tolerating oral intake well and sodium 135 -Pulmonary following, recommending continuation of prednisone 40 mg daily -Continue with DuoNeb's 4 times daily scheduled and every 2 hours as needed, Symbicort 1604.5 g inhaler twice daily, Singulair 10 mg daily, and prednisone 40 mg daily Type II non-STEMI secondary to severe sepsis History of CAD status post 3 vessel CABG History of PAD status post Bypass Moderate pulm HTN Hypertension Hyperlipidemia -Cardiology note reviewed: Outpatient follow-up. Continue current cardiac medications. -Echocardiogram with ejection fraction 55-60% and moderate pulmonary hype rtension -Metoprolol 50 mg daily, aspirin 81 mg daily, Lipitor 20 mg daily, losartan 50 mg daily -Secondary to persistently elevated blood pressures inadequately controlled with systolic pressures of 180s, amlodipine 5 mg daily was added to current blood pressure medication regimen with metoprolol 50 mg daily, and Cozaar 50 mg daily.. Blood pressure is much better controlled with systolic pressures maintaining around 150s. Lactic acidosis, resolved. Date and Imaging reviewed: -Repeat Chest x-ray completed 10/13/23 was reviewed showing mild pulmonary edema and upon personal review and comparison from x-ray completed 10/09/23, showing moderate improvement. -Vital signs reviewed and stable. Blood pressure 157/76, heart rate 82, respiratory rate 20, temp 98.2F, SpO2 of 93% on 2 L O2 via nasal cannula. DVT prophylaxis: Heparin SC Anticipated discharge date: Tomorrow morning, after home oxygen evaluation and arrangements have been set up for home O2. Anticipated discharge place: Home with home care and palliative care Patient was seen independently by Nurse Pracitioner. This document was prepared using [employer] dictation software. Please allow for errors in technical project coordinator, while rare they do occur. Objective - Vital Signs Vital signs: Vital Signs Temp 98.2 F 10/14/23 04:00 Pulse 82 10/14/23 04:00 Resp 20 10/14/23 04:00 BP 157/76 10/14/23 04:00 Pulse Ox 93 L 10/14/23 04:00 FiO2 Intake & Output 10/13/23 10/14/23 10/14/23 18:59 06:59 18:59 Intake Total 358 Balance 358 Intake: Oral 358 Other: Voiding Method Toilet Toilet Urinal Urinal # Voids 2 1 - Labs CBC & Chem 7: 10/13/23 10:37 10/13/23 10:37 Labs: Abnormal Lab Results - Last 24 Hours (Table) 10/13/23 Range/Units 10:37 Sodium 135 L (137-145) mmol/L BUN 30 H (9-20) mg/dL Creatinine 0.42 L (0.66-1.25) mg/dL Glucose 148 H (74-99) mg/dL Microbiology - Last 24 Hours (Table) 10/09/23 22:30 Gram Stain - Preliminary Sputum Sputum Culture - Preliminary Klebsiella pneumoniae Streptococcus pneumoniae Katelynn albicans 10/09/23 17:00 Blood Culture - Preliminary Blood
[2023-10-14 16:45] LABS: Glucose,Whole Blood 119 mg/dL (70-110)
[2023-10-14] MEDS: LORATADINE 10 MG TAB PO SCH (20:47)
[2023-10-14] MEDS: ATORVASTATIN 20 MG TAB PO SCH (20:47)
[2023-10-15] MEDS: amLODIPine 5 MG TAB PO SCH (08:27)
[2023-10-15] MEDS: ASPIRIN 81 MG PO SCH (08:27)
[2023-10-15] MEDS: MONTELUKAST 10 MG TAB PO SCH (08:27)
[2023-10-15] MEDS: METOPROLOL SUCCINATE (ER) 50 MG TAB.ER.24H PO SCH (08:27)
[2023-10-15] MEDS: LOSARTAN 50 MG TAB PO SCH (08:27)
[2023-10-15] MEDS: predniSONE 20 MG TAB PO SCH (08:28)
[2023-10-15] MEDS: PANTOPRAZOLE 40 MG TABLET PO SCH (08:28)
[2023-10-15] MEDS: HEPARIN SODIUM,PORCINE 5,000 UNIT/ML 1 ML VIAL SQ SCH (08:33)
[2023-10-15] MEDS: SYMBICORT 160-4.5 MCG INHALER INHALATION SCH (08:38)
[2023-10-15] MEDS: IPRATROPIUM-ALBUTEROL 3 ML NEB INHALATION SCH ×2 (08:38→11:37)
[2023-10-15 08:53] VITALS: BP 136/63; RESP 18; TEMP 98.1
[2023-10-15 08:54] VITALS: PULSE 90
[2023-10-15 09:50] LABS: HCT 42.4 % (39.0-53.0); HGB 13.6 gm/dL (13.0-17.5); MCH 30.3 pg (25.0-35.0); MCHC 32.1 g/dL (31.0-37.0); MCV 94.4 fL (80.0-100.0); Mean Platelet Volume 8.3; Platelet Count 268 k/uL (150-450); RBC 4.49 m/uL (4.30-5.90); RDW 13.1 % (11.5-15.5); WBC 9.8 k/uL (3.8-10.6)
[2023-10-15 10:32] LABS: ALT 60 U/L (4-49); AST 24 U/L (17-59); African American GFR (CKD) >90 (>60 ml/min/1.73 sqM); Albumin 3.3 g/dL (3.5-5.0); Alkaline Phosphatase 65 U/L (38-126); Anion Gap 9 mmol/L; Blood Urea Nitrogen 22 mg/dL (9-20); Calcium 8.9 mg/dL (8.4-10.2); Carbon Dioxide 30 mmol/L (22-30); Chloride 92 mmol/L (98-107); Glucose 81 mg/dL (74-99); Magnesium 1.9 mg/dL (1.6-2.3); Non-African American GFR(CKD) >90 (>60 ml/min/1.73 sqM); Potassium 4.2 mmol/L (3.5-5.1); Sodium 131 mmol/L (137-145); Total Bilirubin 0.6 mg/dL (0.2-1.3); Total Protein 6.2 g/dL (6.3-8.2)
--- NOTE | 2023-10-15 10:39 | P.PN ---
Subjective Progress Note Date: 10/15/23 78-year-old male patient hospitalized for worsening shortness of breath, acute hypoxic respiratory failure and pneumonia. Is known to have coronary artery disease, previous coronary stenting, CHF, hypertension, hyperlipidemia and COPD. The patient had a CT angiogram at the time of admission and I reviewed the CAT scan of the chest and there is evidence of a left lower lobe pneumonia. There is also bolus upper lobe changes more so on the right. The previous cause of 9.8, BUN is at 22 with a creatinine of 0.5. His sputum was positive for a combination of Pseudomonas and Cell and strep to focus. The patient remains on IV Rocephin for now. No recent chest x-rays. His current on a prednisone burst taper starting with 40 mg. He has trilogy looked at home and he also has a DuoNeb nebulizer. Objective - Vital Signs Vital signs: Vital Signs Temp 98.1 F 10/15/23 08:00 Pulse 90 10/15/23 08:53 Resp 18 10/15/23 08:00 BP 136/63 10/15/23 08:00 Pulse Ox 94 L 10/15/23 08:40 FiO2 Intake & Output 10/14/23 10/15/23 10/15/23 18:59 06:59 18:59 Intake Total 236 180 Balance 236 180 Intake: Oral 236 180 Other: Voiding Method Toilet Toilet Urinal Urinal # Voids 3 1 1 - Exam No acute distress, oriented 3. The patient is currently on 2 L of oxygen. No audible wheezing or use of accessory muscles. HEENT examination is grossly unremarkable. Mucous membranes are moist. No oral lesions. Neck supple. Full range of motion. No adenopathy thyromegaly or neck vein distention. Cardiovascular examination reveals regular rhythm rate. S1-S2 normal. No S3 or S4. No discernible murmur noted. Heart sounds are distant. Lungs reveal scattered coarse rhonchi. Few scattered crackles and wheezes. Breath sounds equal bilaterally. Saturations are 98 % on 2 L. Abdomen soft bowel sounds are heard. No masses or tenderness. Extremities are intact. No cyanosis clubbing or edema. Skin is without rash or lesion. Neurologic examination is brief but nonfocal. - Labs CBC & Chem 7: 10/15/23 08:36 10/15/23 08:36 Labs: Abnormal Lab Results - Last 24 Hours (Table) 10/14/23 10/15/23 Range/Units 16:43 08:36 Sodium 131 L (137-145) mmol/L Chloride 92 L (98-107) mmol/L BUN 22 H (9-20) mg/dL Creatinine 0.51 L (0.66-1.25) mg/dL POC Glucose (mg/dL) 119 H (70-110) mg/dL ALT 60 H (4-49) U/L Total Protein 6.2 L (6.3-8.2) g/dL Albumin 3.3 L (3.5-5.0) g/dL Microbiology - Last 24 Hours (Table) 10/09/23 22:30 Gram Stain - Final Sputum Sputum Culture - Final Pseudomonas aeruginosa Klebsiella pneumoniae Streptococcus pneumoniae Katelynn albicans 10/09/23 17:00 Blood Culture - Final Blood 10/09/23 14:26 Blood Culture - Final Blood Assessment and Plan Plan: Acute hypoxemic respiratory failure, secondary to bibasilar community acquired pneumonia, with evidence of both Streptococcus, and Klebsiella, in the patient's sputum. Acute COPD exacerbation, secondary to above. Leukocytosis, secondary to above. Hyponatremia recovered Elevated troponins, likely related to supply/demand mismatch. Coronary artery disease. Benign essential hypertension. Hyperlipidemia. Former tobacco smoker. Plan: Patient is completing a course of antibiotics. He has a left lower lobe pneumonia. He came in discharged home on a oxygen and is being set up for him. He is also going to surgeon up to one inhalation a day and updrafts with albuterol on an as-needed basis. Follow up with pulmonary on outpatient basis.
--- NOTE | 2023-10-15 17:24 | P.DS ---
Providers Date of admission: 10/09/23 16:08 Expected date of discharge: 10/15/23 Attending physician: Sameer Jacobo MD Consults: 10/09/23 16:03 Consult Physician Routine Consulting Provider: Jam Claros Consult Reason/Comments: pneumonia, hypoxia Do you want consulting provider notified?: Yes Primary care physician: [facility] Course: Discharge Diagnosis: Klebsiella and Streptococcus Community-acquired pneumonia with acute hypoxic respiratory failure and sepsis. Acute exacerbation of COPD Hyponatremia secondary to dehydration and diuretic use, resolved after IV fluid hydration and holding of diuretic. Type II non-STEMI secondary to severe sepsis History of CAD status post 3 vessel CABG History of PAD status post Bypass Moderate pulm HTN Hypertension Hyperlipidemia Hospital Course: Patient is a very pleasant 78-year-old male with a past medical history of known CAD status post CABG and stenting, hypertension, hyperlipidemia, peripheral artery disease with bypass, COPD, and HFpEF. He presetned to the ER on 10/09/23 with complaints of shortness of breath. In the emergency department he was found to be hypoxic at 78% on room air and required6 L O2. He was tachypneic at 34 breaths per minute, tachycardic in the 134 bpm, and febrile with temperature 101.4F. Labs were remarkable for WBC count of 22.0, sodium 126, chloride 89, bicarb of 21, elevated anion gap of 16, BUN of 23, Lactic acid of 2.3. and troponin of 0.255. Influenza A, influenza B, RSV, and Covid PCR were all negative. CT chest showed no evidence of pulmonary embolism but did show bibasilar pneumonia. Patient admitted with consultation to cardiology and pulmonology. He was continued on Rocephin and Zithromax. Pro-calcitonin came back elevated. Echocardiogram showed preserved ejection fraction of 55-60%, moderate pulmonary hypertension, and no wall motion abnormality.Sputum cultures positive for Klebsiella pneumoniae, Streptococcus pneumoniae and Katelynn albicans. Patient completed 5 day course of antibiotics with azithromycin and Rocephin. He continues to have increased oxygenation needs secondary to his advanced COPD. Ambulatory pulse ox was completed and patient was found to be 85% on room air and 82% room air with ambulation. On oxygen patient was found to be 95% on 2 L at rest and 94% on 2 L with ambulation. Patient being discharged home with oxygen. He was also evaluated by cardiology secondary to his elevated troponins in diagnosis of non-STEMI secondary to severe sepsis. Cardiology evaluated him and recommending patient follow-up outpatient in their office. During hospitalization patient was also found to have elevated blood pressures amlodipine 5 mg daily was added to his current blood pressure medication regimen. Patient showed improvement and today. Medically he is stable for discharge at this time. Again patient is being discharged home on continuous home oxygen along with prednisone taper and scheduled to treatments. In addition patient's losartan/hydrochlorothiazide was discontinued and patient was discharged home on metoprolol 50 mg daily, losartan 50 mg daily, and amlodipine 5 mg daily. Follow up outpatient with PCP, cardiology, and pulmonology. Patient discharged home with [facility] and referral for [facility] care secondary to his advanced COPD. Physical exam: General: non toxic, no distress, appears at stated age Derm: warm, dry Head: atraumatic, normocephalic, symmetric Eyes: EOMI, no lid lag, anicteric sclera Mouth: no lip lesion, mucus membranes moist Cardiovascular: S1S2 reg, no murmur, positive posterior tibial pulses bilaterally. Lungs: Lungs with equal air entry and diffuse expiratory wheezes. No rhonchi, rales, or crackles noted. Currently on 2 L O2 via nasal cannula with no accessory muscle usage and no signs of acute respiratory distress. Abdominal: soft, nontender to palpation, no guarding, no appreciable organomegaly Ext: no gross muscle atrophy, no edema, no contractures Neuro: CN II-XI grossly intact, no focal neuro deficits Psych: Alert, oriented, appropriate affect A total of 35 minutes of time were spent preparing this complex discharge summary. Pt was discharged on 10/15/23 at 9:49 AM. Patient was seen independently by Nurse Practitioner. This document was prepared using [employer] dictation software. Please allow for errors in vacuum filter operator while rare they do occur. Patient Condition at Discharge: Stable Plan - Discharge Summary Discharge Rx Participant: No New Discharge Prescriptions: New Ipratropium-Albuterol Nebulize [Duoneb 0.5 mg-3 mg/3 ml Soln] 3 ml INHALATION RT-QID #120 each amLODIPine [Norvasc] 5 mg PO DAILY 30 Days #30 tab Metoprolol Succinate (ER) [Toprol XL] 50 mg PO DAILY 30 Days #30 tab Losartan [Cozaar] 50 mg PO DAILY 30 Days #30 tab predniSONE See Taper PO DIRECTED 12 Days #30 tab Budesonide-Formot 160-4.5 Mcg [Symbicort 160-4.5 Mcg Inhaler] 2 puff INHALATION RT-BID 30 Days #1 each Continue Simvastatin [Zocor] 20 mg PO HS Levocetirizine Dihydrochloride [Xyzal] 5 mg PO HS Pantoprazole [Protonix] 40 mg PO DAILY Montelukast [Singulair] 10 mg PO DAILY Fluticasone/Umeclidin/Vilanter [Trelegy Ellipta 100-62.5-25] 1 puff INHALATION RT-DAILY Discontinued Losartan-Hctz 50-12.5 mg [Hyzaar 50-12.5] 1 tab PO DAILY Discharge Medication List Fluticasone/Umeclidin/Vilanter [Trelegy Ellipta 100-62.5-25] 1 puff INHALATION RT-DAILY 10/09/23 [History] Levocetirizine Dihydrochloride [Xyzal] 5 mg PO HS 10/09/23 [History] Montelukast [Singulair] 10 mg PO DAILY 10/09/23 [History] Pantoprazole [Protonix] 40 mg PO DAILY 10/09/23 [History] Simvastatin [Zocor] 20 mg PO HS 10/09/23 [History] Budesonide-Formot 160-4.5 Mcg [Symbicort 160-4.5 Mcg Inhaler] 2 puff INHALATION RT-BID 30 Days #1 each 10/15/23 [Rx] Ipratropium-Albuterol Nebulize [Duoneb 0.5 mg-3 mg/3 ml Soln] 3 ml INHALATION RT-QID #120 each 10/15/23 [Rx] Losartan [Cozaar] 50 mg PO DAILY 30 Days #30 tab 10/15/23 [Rx] Metoprolol Succinate (ER) [Toprol XL] 50 mg PO DAILY 30 Days #30 tab 10/15/23 [Rx] amLODIPine [Norvasc] 5 mg PO DAILY 30 Days #30 tab 10/15/23 [Rx] predniSONE See Taper PO DIRECTED 12 Days #30 tab 10/15/23 [Rx] Follow up Appointment(s)/Referral(s): Ruben Kim MD [Medical Doctor] - 1 Week Yao Taveras MD [Primary Care Provider] - 1-2 days Jam Claros DO [Doctor of Osteopathic Medicine] - 1 Week [facility], [NON-STAFF] - 1 Week Patient Instructions/Handouts: Pneumonitis (DC) Activity/Diet/Wound Care/Special Instructions: Activity: As tolerated. Take breaks as needed. Diet: Heart healthy and carb consistent diet. Avoid salts, or foods with hidden salts such as canned or boxed foods and frozen dinners. Extra salt makes your heart work harder and traps the fluid in your body for longer. Special Instructions: Take all of your medications as directed and remember to keep all of your doctor's appointments and follow-up as needed. As we discussed you are being discharged home with oxygen secondary to advanced COPD and oxygen desaturation on room air at rest. It is important to wear this oxygen at all times including while sleeping and bathing once a follow-up with your recycler forklift driver truck driver and otherwise instructed. Also as we discussed, you are being discharged home with both home care and palliative care for your advanced COPD. Thank you for allowing us to participate in your care, it was truly a pleasure having you for our patient!!! Discharge Disposition: HOME WITH HOME HEALTH SERVICES
== END 2023-10-15 13:42 | disposition home health service (06) | DRG 871 ==
LOC: EC 13:41 → 3SCARD 16:08
PROVIDERS: ADMIT Student in an Organized Health Care Education/Training Program; ATTEND Student in an Organized Health Care Education/Training Program
DX: A40.3 Sepsis due to Streptococcus pneumoniae (principal); I21.A1 Myocardial infarction type 2; J15.0 Pneumonia due to Klebsiella pneumoniae; J13 Pneumonia due to Streptococcus pneumoniae; R65.20 Severe sepsis without septic shock; J96.01 Acute respiratory failure with hypoxia; J44.0 Chronic obstructive pulmonary disease with (acute) lower respiratory infection; J44.1 Chronic obstructive pulmonary disease with (acute) exacerbation; E87.1 Hypo-osmolality and hyponatremia; I50.32 Chronic diastolic (congestive) heart failure; E87.20 Acidosis, unspecified; I11.0 Hypertensive heart disease with heart failure; Z11.52 Encounter for screening for COVID-19; E87.8 Other disorders of electrolyte and fluid balance, not elsewhere classified; I27.20 Pulmonary hypertension, unspecified; E86.0 Dehydration; I70.219 Atherosclerosis of native arteries of extremities with intermittent claudication, unspecified extremity; Z99.81 Dependence on supplemental oxygen; E78.5 Hyperlipidemia, unspecified; T50.2X5A Adverse effect of carbonic-anhydrase inhibitors, benzothiadiazides and other diuretics, initial encounter; R53.83 Other fatigue; I25.10 Atherosclerotic heart disease of native coronary artery without angina pectoris; I49.3 Ventricular premature depolarization; R79.1 Abnormal coagulation profile; Z79.51 Long term (current) use of inhaled steroids; Z79.82 Long term (current) use of aspirin; Z79.899 Other long term (current) drug therapy; Z87.891 Personal history of nicotine dependence; Z95.1 Presence of aortocoronary bypass graft; Z95.5 Presence of coronary angioplasty implant and graft
CPT/HCPCS: 36415; 71045; 71046; 71275; 80048; 80053; 81003; 83605; 83735; 83880; 84100; 84145; 84484; 85025; 85027; 85610; 85730; 87040; 87070; 87077; 87186; 87205; 87636; 93005; 93306; 94640; 94760; 96361; 96365; 96366; 96368; 96375; 99291

== ENCOUNTER 2023-10-28 11:49 | Emergency (ER) | payer MEDICARE ==
[2023-10-28 12:13] VITALS: RESP 18
[2023-10-28] MEDS ORDERED: SODIUM CHLORIDE 0.9% 1,000 ML IV STA (12:19)
--- NOTE | 2023-10-28 12:49 | ED ---
Syncope HPI - General Chief Complaint: Syncope Stated Complaint: Syncope w/Elevated BP Time Seen by Provider: 10/28/23 12:17 Source: patient, EMS, RN notes reviewed, old records reviewed Mode of arrival: EMS Limitations: no limitations - History of Present Illness Initial Comments: This is a 78-year-old male to the emergency department for evaluation patient presents with a fall by EMS and a syncopal event. Patient has some dizziness today nausea was watched and decreasing his chair not feeling well because of this he took a nitro and passed out. states he did pass out becoming unresponsive in by EMS was found to have low blood pressure. On arrival to the ER patient complaining of chest pain headache shortness of breath or abdominal pain MD Complaint: loss of consciousness, felt faint, other (Patient did pass out after taking nitro) Prodromal Symptoms: none -: second(s) Witnessed: yes - by bystander Injuries Sustained Associated with Event: None Current Symptoms: back to baseline Context: other (Patient took a nitro tablet and passed out) Treatments Prior to Arrival: none - Related Data Home Medications Medication Instructions Recorded Confirmed Fluticasone/Umeclidin/Vilanter 1 puff INHALATION RT-DAILY 10/09/23 10/09/23 [Trelegy Ellipta 100-62.5-25] Levocetirizine Dihydrochloride 5 mg PO HS 10/09/23 10/09/23 [Xyzal] Montelukast [Singulair] 10 mg PO DAILY 10/09/23 10/09/23 Pantoprazole [Protonix] 40 mg PO DAILY 10/09/23 10/09/23 Simvastatin [Zocor] 20 mg PO HS 10/09/23 10/09/23 Previous Rx's Medication Instructions Recorded Budesonide-Formot 160-4.5 Mcg 2 puff INHALATION RT-BID 30 Days 10/15/23 [Symbicort 160-4.5 Mcg Inhaler] #1 each Ipratropium-Albuterol Nebulize 3 ml INHALATION RT-QID #120 each 10/15/23 [Duoneb 0.5 mg-3 mg/3 ml Soln] Losartan [Cozaar] 50 mg PO DAILY 30 Days #30 tab 10/15/23 Metoprolol Succinate (ER) [Toprol 50 mg PO DAILY 30 Days #30 tab 10/15/23 XL] amLODIPine [Norvasc] 5 mg PO DAILY 30 Days #30 tab 10/15/23 predniSONE See Taper PO DIRECTED 12 Days 10/15/23 #30 tab Allergies Allergy/AdvReac Type Severity Reaction Status Date / Time No Known Allergies Allergy Verified 10/09/23 16:03 Review of Systems ROS Statement: Those systems with pertinent positive or pertinent negative responses have been documented in the HPI. ROS Other: All systems not noted in ROS Statement are negative. Past Medical History Past Medical History: Heart Failure, COPD, Pneumonia History of Any Multi-Drug Resistant Organisms: None Reported Past Surgical History: Heart Catheterization, Heart Catheterization With Stent Additional Past Surgical History / Comment(s): Triple bypass 2016. Bypass artery in groin 2010. Past Anesthesia/Blood Transfusion Reactions: No Reported Reaction Date of Last Stent Placement:: 2014 Past Psychological History: No Psychological Hx Reported Smoking Status: Former smoker Past Alcohol Use History: None Reported, Rare Past Drug Use History: None Reported General Exam Limitations: no limitations General appearance: alert, in no apparent distress Head exam: Present: atraumatic, normocephalic, normal inspection Eye exam: Present: normal appearance, PERRL, EOMI. Absent: scleral icterus, conjunctival injection, periorbital swelling ENT exam: Present: normal exam, mucous membranes moist Neck exam: Present: normal inspection. Absent: tenderness, meningismus, lymphadenopathy Respiratory exam: Present: normal lung sounds bilaterally. Absent: respiratory distress, wheezes, rales, rhonchi, stridor Cardiovascular Exam: Present: regular rate, normal rhythm, normal heart sounds. Absent: systolic murmur, diastolic murmur, rubs, gallop, clicks GI/Abdominal exam: Present: soft, normal bowel sounds. Absent: distended, tenderness, guarding, rebound, rigid Extremities exam: Present: normal inspection, full ROM, normal capillary refill. Absent: tenderness, pedal edema, joint swelling, calf tenderness Back exam: Present: normal inspection Neurological exam: Present: alert, oriented X3, CN II-XII intact Psychiatric exam: Present: normal affect, normal mood Skin exam: Present: warm, dry, intact, normal color. Absent: rash Course Vital Signs 10/28/23 10/28/23 10/28/23 11:57 12:00 12:03 Temperature 97.6 F 98.9 F Pulse Rate 67 67 Respiratory 18 16 Rate Blood Pressure 88/53 88/53 O2 Sat by Pulse 93 L 97 97 Oximetry 10/28/23 10/28/23 10/28/23 12:30 13:00 13:30 Temperature Pulse Rate 70 70 Respiratory 14 14 Rate Blood Pressure 84/49 113/56 115/57 O2 Sat by Pulse 97 95 Oximetry 10/28/23 10/28/23 14:00 14:30 Temperature 98.6 F Pulse Rate 61 63 Respiratory 21 18 Rate Blood Pressure 117/62 131/63 O2 Sat by Pulse 94 L 92 L Oximetry - Reevaluation(s) Reevaluation #1: 10/28/23 13:10 Medical records reviewed Reevaluation #2: 10/28/23 13:10 No recurrent syncope here in the ER blood pressure improved Reevaluation #3: Patient has no recurrent syncope here in the ER Patient informed results and questions answered Reevaluation #4: 10/28/23 12:54 Was pt. sent in by a medical professional or institution (, PA, SLICER MACHINE OPERATOR, urgent care, hospital, or senior living...) When possible be specific @ -no Did you speak to anyone other than the patient for history (EMS, parent, family, police, friend...)? What history was obtained from this source @ -no Did you review nursing and triage notes (agree or disagree)? Why? @ -agree Are old charts reviewed (outside hosp., previous admission, EMS record, old EKG, old radiological studies, urgent care reports/EKG's, senior living records)? Report findings @ -yes Differential Diagnosis (chest pain, altered mental status, abdominal pain women, abdominal pain men, vaginal bleeding, weakness, fever, dyspnea, syncope, headache, dizziness, GI bleed, back pain, seizure, CVA, palpatations, mental health, musculoskeletal)? @ -prior EKG interpreted by me (3pts min.). @ -yes X-rays interpreted by me (1pt min.). @ -no CT interpreted by me (1pt min.). @ -no U/S interpreted by me (1pt. min.). @ -no What testing was considered but not performed or refused? (CT, X-rays, U/S, labs)? Why? @ -none What meds were considered but not given or refused? Why? @ -none Did you discuss the management of the patient with other professionals (professionals i.e. , PA, SLICER MACHINE OPERATOR, lab, RT, psych nurse, social security assessor, lawyer real estate, teacher, community relations officer, upper caser)? Give summary @ -no Was smoking cessation discussed for >3mins.? @ -no Was critical care preformed (if so, how long)? @ -no Were there social determinants of health that impacted care today? How? (Homelessness, low income, unemployed, alcoholism, drug addiction, transportation, low edu. Level, literacy, decrease access to med. care, senior care, rehab)? @ -none Was there de-escalation of care discussed even if they declined (Discuss DNR or withdrawal of care, Hospice)? DNR status @ -no What co-morbidities impacted this encounter? (DM, HTN, Smoking, COPD, CAD, Cancer, CVA, ARF, Chemo, Hep., AIDS, mental health diagnosis, sleep apnea, morbid obesity)? @ -none Was patient admitted / discharged? Hospital course, mention meds given and route, prescriptions, significant lab abnormalities, going to OR and other pertinent info. @ - 78 male to the emergency department for evaluation of syncopal event. Patient was sitting in his chair not feeling well prior to arrival he took a nitro and passed out. noticed him pass out but he responded and feels well currently. Patient is followed failure secondary can be discharged home Discharge Undiagnosed new problem with uncertain prognosis? @ -no Drug Therapy requiring intensive monitoring for toxicity (Heparin, Nitro, Ins ulin, Cardizem)? @ -no Were any procedures done? @ -no Diagnosis/symptom? @ -Syncope Acute, or Chronic, or Acute on Chronic? @ -Acute Uncomplicated (without systemic symptoms) or Complicated (systemic symptoms)? @ -Complicated Side effects of treatment? @ -no Exacerbation, Progression, or Severe Exacerbation? @ -exacerbation Poses a threat to life or bodily function? How? (Chest pain, [place], [place], pneumonia, PE, COPD, DKA, ARF, appy, cholecystitis, CVA, Diverticulitis, Homicidal, Suicidal, threat to staff... and all critical care pts) @ -yes with syncopal event Reevaluation #5: 10/28/23 13:05 Differential Syncope: Valvular disease, hypertrophic cardiomyopathy, pulmonary embolism, tamponade, tachycardia, bradycardia, [place], hypovolemia, hemorrhage, dissection, anemia, intracranial hemorrhage, seizure, hypoglycemia, carbon monoxide poisoning, this is not meant to be an all-inclusive list. EKG Findings - EKG Comments: EKG Findings:: EKG is sinus 69 [place] 139 QRS 102 QTC 384 - EKG Results: EKG: interpreted by [facility] Medical Decision Making - Medical Decision Making 78 male to the emergency department for evaluation of syncopal event. Patient was sitting in his chair not feeling well prior to arrival he took a nitro and passed out. noticed him pass out but he responded and feels well currently. Patient is followed failure secondary can be discharged home - Lab Data Result diagrams: 10/28/23 13:38 10/28/23 13:38 Lab Results 10/28/23 10/28/23 10/28/23 Range/Units 13:38 13:38 13:38 WBC 14.1 H (3.8-10.6) k/uL RBC 4.57 (4.30-5.90) m/uL Hgb 13.9 (13.0-17.5) gm/dL Hct 41.8 (39.0-53.0) % MCV 91.5 (80.0-100.0) fL MCH 30.5 (25.0-35.0) pg MCHC 33.3 (31.0-37.0) g/dL RDW 13.6 (11.5-15.5) % Plt Count 291 (150-450) k/uL MPV 7.7 Neutrophils % 90 % Lymphocytes % 5 % Monocytes % 3 % Eosinophils % 0 % Basophils % 0 % Neutrophils # 12.8 H (1.3-7.7) k/uL Lymphocytes # 0.7 L (1.0-4.8) k/uL Monocytes # 0.5 (0-1.0) k/uL Eosinophils # 0.0 (0-0.7) k/uL Basophils # 0.0 (0-0.2) k/uL PT 11.5 (10.0-12.5) sec INR 1.1 (<1.2) APTT 21.0 L (22.0-30.0) sec Sodium 126 L (137-145) mmol/L Potassium 4.7 (3.5-5.1) mmol/L Chloride 94 L (98-107) mmol/L Carbon Dioxide 24 (22-30) mmol/L Anion Gap 8 mmol/L BUN 17 (9-20) mg/dL Creatinine 0.61 L (0.66-1.25) mg/dL Est GFR (CKD-EPI)AfAm >90 (>60 ml/min/1.73 sqM) Est GFR (CKD-EPI)NonAf >90 (>60 ml/min/1.73 sqM) Glucose 90 (74-99) mg/dL Plasma Lactic Acid Mac (0.7-2.0) mmol/L Calcium 8.6 (8.4-10.2) mg/dL Phosphorus 3.1 (2.5-4.5) mg/dL Magnesium 1.8 (1.6-2.3) mg/dL Total Bilirubin 0.9 (0.2-1.3) mg/dL AST 20 (17-59) U/L ALT 25 (4-49) U/L Alkaline Phosphatase 95 (38-126) U/L Troponin I (0.000-0.034) ng/mL Total Protein 6.2 L (6.3-8.2) g/dL Albumin 3.5 (3.5-5.0) g/dL 10/28/23 10/28/23 Range/Units 13:38 13:38 WBC (3.8-10.6) k/uL RBC (4.30-5.90) m/uL Hgb (13.0-17.5) gm/dL Hct (39.0-53.0) % MCV (80.0-100.0) fL MCH (25.0-35.0) pg MCHC (31.0-37.0) g/dL RDW (11.5-15.5) % Plt Count (150-450) k/uL MPV Neutrophils % % Lymphocytes % % Monocytes % % Eosinophils % % Basophils % % Neutrophils # (1.3-7.7) k/uL Lymphocytes # (1.0-4.8) k/uL Monocytes # (0-1.0) k/uL Eosinophils # (0-0.7) k/uL Basophils # (0-0.2) k/uL PT (10.0-12.5) sec INR (<1.2) APTT (22.0-30.0) sec Sodium (137-145) mmol/L Potassium (3.5-5.1) mmol/L Chloride (98-107) mmol/L Carbon Dioxide (22-30) mmol/L Anion Gap mmol/L BUN (9-20) mg/dL Creatinine (0.66-1.25) mg/dL Est GFR (CKD-EPI)AfAm (>60 ml/min/1.73 sqM) Est GFR (CKD-EPI)NonAf (>60 ml/min/1.73 sqM) Glucose (74-99) mg/dL Plasma Lactic Acid Mac 1.1 (0.7-2.0) mmol/L Calcium (8.4-10.2) mg/dL Phosphorus (2.5-4.5) mg/dL Magnesium (1.6-2.3) mg/dL Total Bilirubin (0.2-1.3) mg/dL AST (17-59) U/L ALT (4-49) U/L Alkaline Phosphatase (38-126) U/L Troponin I <0.012 (0.000-0.034) ng/mL Total Protein (6.3-8.2) g/dL Albumin (3.5-5.0) g/dL - EKG Data -: EKG Interpreted by Me Disposition Clinical Impression: Vasovagal syncope Disposition: HOME SELF-CARE Condition: Good Instructions (If sedation given, give patient instructions): Syncope (ED) Is patient prescribed a controlled substance at d/c from ED?: No Referrals: Yao Taveras MD [Primary Care Provider] - 1-2 days Time of Disposition: 14:30
[2023-10-28 14:07] LABS: Basophils % (A) 0 %; Eosinophils % (A) 0 %; HCT 41.8 % (39.0-53.0); HGB 13.9 gm/dL (13.0-17.5); Lymphocytes # (A) 0.7 k/uL (1.0-4.8); Lymphocytes % (A) 5 %; MCH 30.5 pg (25.0-35.0); MCHC 33.3 g/dL (31.0-37.0); MCV 91.5 fL (80.0-100.0); Mean Platelet Volume 7.7; Monocytes # (A) 0.5 k/uL (0-1.0); Monocytes % (A) 3 %; Neutrophils # (A) 12.8 k/uL (1.3-7.7); Neutrophils % (A) 90 %; Platelet Count 291 k/uL (150-450); RBC 4.57 m/uL (4.30-5.90); RDW 13.6 % (11.5-15.5); WBC 14.1 k/uL (3.8-10.6)
[2023-10-28 14:13] LABS: INR 1.1 (<1.2); Prothrombin Time 11.5 sec (10.0-12.5)
[2023-10-28 14:19] LABS: ALT 25 U/L (4-49); AST 20 U/L (17-59); African American GFR (CKD) >90 (>60 ml/min/1.73 sqM); Albumin 3.5 g/dL (3.5-5.0); Alkaline Phosphatase 95 U/L (38-126); Anion Gap 8 mmol/L; Blood Urea Nitrogen 17 mg/dL (9-20); Calcium 8.6 mg/dL (8.4-10.2); Carbon Dioxide 24 mmol/L (22-30); Chloride 94 mmol/L (98-107); Glucose 90 mg/dL (74-99); Magnesium 1.8 mg/dL (1.6-2.3); Non-African American GFR(CKD) >90 (>60 ml/min/1.73 sqM); Phosphorus 3.1 mg/dL (2.5-4.5); Potassium 4.7 mmol/L (3.5-5.1); Sodium 126 mmol/L (137-145); Total Bilirubin 0.9 mg/dL (0.2-1.3); Total Protein 6.2 g/dL (6.3-8.2)
[2023-10-28 14:56] VITALS: BP 131/63; PULSE 63; TEMP 98.6
== END 2023-10-28 15:46 | disposition home or self-care (01) ==
LOC: EC 11:49
DX: R55 Syncope and collapse (principal); I50.9 Heart failure, unspecified; J44.9 Chronic obstructive pulmonary disease, unspecified; Z87.891 Personal history of nicotine dependence; Z79.51 Long term (current) use of inhaled steroids
CPT/HCPCS: 36415; 80053; 83605; 83735; 84100; 84484; 85025; 85610; 85730; 93005; 96360; 96361; 99284

== ENCOUNTER → 2023-12-13 | Outpatient (CLI) | payer MEDICARE ==
--- NOTE | 2023-12-13 13:00 | US ---
EXAMINATION TYPE: US venous doppler duplex LE LT DATE OF EXAM: 12/13/2023 12:44 PM COMPARISON: NONE CLINICAL INDICATION: Male, 78 years old with history of M79.662 PAIN IN LEFT LOWER LEG; SIDE PERFORMED: Left TECHNIQUE: The lower extremity deep venous system is examined utilizing real time linear array sonog ligia with graded compression, doppler sonography and color-flow sonography. VESSELS IMAGED: Common Femoral Vein Deep Femoral Vein Greater Saphenous Vein * Femoral Vein Popliteal Vein Small Saphenous Vein * Proximal Calf Veins (* superficial vessels) Left Leg: Negative for DVT IMPRESSION: No evidence for DVT within the left lower extremity imaged from the groin to the upper calf.
== END | disposition home or self-care (01) ==
LOC: RADUSWWP 12:23
PROVIDERS: ATTEND Family Medicine
DX: M79.662 Pain in left lower leg (principal)

== ENCOUNTER 2024-06-10 18:26 | Inpatient (IN) | payer MEDICARE ==
--- NOTE | 2024-06-10 18:50 | ED ---
General Adult HPI - General Chief complaint: Shortness of Breath Stated complaint: SUNDAY Time Seen by Provider: 06/10/24 18:44 Source: patient, EMS Mode of arrival: EMS Limitations: no limitations - History of Present Illness Initial comments: Patient presents to the ED from home by ambulance for evaluation. Patient states that he has been having worsening dyspnea for the past 4 days or so. Patient states that he has stage IV emphysema, and he states that he has been giving himself home neb treatments with minimal improvement. Patient denies being on steroids at this time. 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 Patient admits to having a mildly productive cough. Patient was started on BiPAP by EMS with reported improvement. Patient denies having any pain, fever or chills, headache, focal neuro deficit, chest pain, hemoptysis, palpitations, dizziness, abdominal pain, nausea/vomiting/diarrhea, bloody or melanotic stool, dysuria or urinary symptoms, decreased urine output, leg or calf swelling or pain, or any other symptoms or complaints. - Related Data Allergies Allergy/AdvReac Type Severity Reaction Status Date / Time No Known Allergies Allergy Verified 06/10/24 18:33 Review of Systems ROS Statement: Those systems with pertinent positive or pertinent negative responses have been documented in the HPI. ROS Other: All systems not noted in ROS Statement are negative. Past Medical History Past Medical History: COPD, Hypertension Additional Past Medical History / Comment(s): CHF History of Any Multi-Drug Resistant Organisms: None Reported Past Surgical History: Coronary Bypass/CABG Past Psychological History: No Psychological Hx Reported Smoking Status: Never smoker Past Alcohol Use History: Occasional Past Drug Use History: None Reported General Exam Limitations: no limitations General appearance: alert Head exam: Present: atraumatic Eye exam: Present: normal appearance Neck exam: Present: other (Trachea is in midline) Respiratory exam: Present: respiratory distress, wheezes, decreased breath sounds. Absent: rales, rhonchi, stridor Cardiovascular Exam: Present: normal rhythm, tachycardia, normal heart sounds, other (Normal radial pulses bilaterally) GI/Abdominal exam: Present: soft. Absent: distended, tenderness, guarding Extremities exam: Present: other (Negative Homans' sign bilaterally). Absent: tenderness, pedal edema, calf tenderness Neurological exam: Present: alert, oriented X3 Psychiatric exam: Present: normal affect Skin exam: Present: warm, dry, intact, normal color Course Vital Signs 06/10/24 06/10/24 06/10/24 18:29 18:35 18:43 Temperature 97.7 F Pulse Rate 81 101 H Respiratory 22 22 Rate Blood Pressure 94/63 93/60 O2 Sat by Pulse 97 97 Oximetry Fraction of 100 Inspired Oxygen (FIO2) 06/10/24 06/10/24 06/10/24 19:06 19:22 19:52 Temperature 98.1 F Pulse Rate 93 82 Respiratory 26 H Rate Blood Pressure 102/65 O2 Sat by Pulse 98 Oximetry Fraction of 50 Inspired Oxygen (FIO2) 06/10/24 06/10/24 20:07 21:04 Temperature Pulse Rate 85 87 Respiratory 16 Rate Blood Pressure 126/69 O2 Sat by Pulse 96 Oximetry Fraction of Inspired Oxygen (FIO2) - Reevaluation(s) Reevaluation #1: 06/10/24 20:56 Case, H&P, test results and ED management were discussed with Dr. Davis. He accepts hospital admission. He agrees with cardiology and pulmonology consultation. He has no further recommendations at this time. 06/10/24 21:02 Patient is now breathing more comfortably, and he states that his dyspnea has improved. Patient remains alert and responsive. Patient is aware of his test results, and he agrees with hospital admission at this time. EKG Findings - EKG Comments: EKG Findings:: ED physician interpretation (interpreted by me): Sinus tachy cardia, ventricular rate 102 bpm, no ectopy, normal DE and QRS intervals, QT interval, normal axis, inferior and anterolateral ST depressions and T wave abnormality, no ST elevation Medical Decision Making - Medical Decision Making Was pt. sent in by a medical professional or institution (, PA, [facility], urgent care, hospital, or [facility]...) When possible be specific @ -No Did you speak to anyone other than the patient for history (EMS, parent, family, police, friend...)? What history was obtained from this source @ -History was also provided by EMS. Did you review nursing and triage notes (agree or disagree)? Why? @ -I reviewed and agree with nursing and triage notes Were old charts reviewed (outside hosp., previous admission, EMS record, old EKG, old radiological studies, urgent care reports/EKG's, [facility] records)? Report findings @ -No old charts were reviewed Differential Diagnosis (chest pain, altered mental status, abdominal pain women, abdominal pain men, vaginal bleeding, weakness, fever, dyspnea, syncope, headache, dizziness, GI bleed, back pain, seizure, CVA, palpatations, mental health, musculoskeletal)? @ -Differential Dyspnea: Coronary syndrome, arrhythmia, tamponade, asthma, COPD, pulmonary embolism, pneumonia, pneumothorax, pulmonary effusion, anaphylaxis, COVID, viral illness, URI, bronchitis, anemia, neuromuscular, this is not meant to be an all-inclusive list. EKG interpreted by me (3pts min.). @ -As above X-rays interpreted by me (1pt min.). @ -Chest x-ray was reviewed myself and shows no acute cardiopulmonary disease. I agree with the radiologist's interpretation as above. CT interpreted by me (1pt min.). @ -None done U/S interpreted by me (1pt. min.). @ -None done What testing was considered but not performed or refused? (CT, X-rays, U/S, labs)? Why? @ -None What meds were considered but not given or refused? Why? @ -None Did you discuss the management of the patient with other professionals (professionals i.e. , PA, [employer] [facility], lab, RT, psych nurse, director social service, customer expert, teacher, patient transport officer, corrections caseworker)? Give summary @ -As above. Was smoking cessation discussed for >3mins.? @ -No Was critical care preformed (if so, how long)? @ -Yes, 40 minutes. Were there social determinants of health that impacted care today? How? (Homelessness, low income, unemployed, alcoholism, drug addiction, transportation, low edu. Level, literacy, decrease access to med. care, custodial, rehab)? @ -No Was there de-escalation of care discussed even if they declined (Discuss DNR or withdrawal of care, Hospice)? DNR status @ -No What co-morbidities impacted this encounter? (DM, HTN, Smoking, COPD, CAD, Cancer, CVA, ARF, Chemo, Hep., AIDS, mental health diagnosis, sleep apnea, morbid obesity)? @ -COPD Was patient admitted / discharged? Hospital course, mention meds given and route, prescriptions, significant lab abnormalities, going to OR and other pertinent info. @ -Patient's breathing/dyspnea has improved with BiPAP ventilation and DuoNeb treatments in the ED. Patient's troponin is noted to be elevated and his EKG shows inferior and anterolateral ST depressions and T wave abnormality. Patient denies any chest pain. Patient has been treated with aspirin and IV heparin. Patient's chest x-ray does not show any focal airspace opacities. Patient has also been treated with IV Solu-Medrol in the ED. Will admit the patient to the hospital for further evaluation/management and cardiology/pulmonology consultations. Dr. Davis has accepted hospital admission. Patient agrees with this plan. Undiagnosed new problem with uncertain prognosis? @ -No Drug Therapy requiring intensive monitoring for toxicity (Heparin, Nitro, Insulin, Cardizem)? @ -No Were any procedures done? @ -No Diagnosis/symptom? @ -COPD exacerbation Acute, or Chronic, or Acute on Chronic? @ -Acute on chronic Uncomplicated (without systemic symptoms) or Complicated (systemic symptoms)? @ -Default Side effects of treatment? @ -No Exacerbation, Progression, or Severe Exacerbation? @ -No Poses a threat to life or bodily function? How? (Chest pain, [place], [place], pneumonia, PE, COPD, DKA, ARF, appy, cholecystitis, CVA, Diverticulitis, Homicidal, Suicidal, threat to staff... and all critical care pts) @ -Yes, potentially. Diagnosis/symptom? @ -Elevated troponin Acute, or Chronic, or Acute on Chronic? @ -Default Uncomplicated (without systemic symptoms) or Complicated (systemic symptoms)? @ -Default Side effects of treatment? @ -None Exacerbation, Progression, or Severe Exacerbation] @ -No Poses a threat to life or bodily function? @ -Yes, potentially. - Lab Data Result diagrams: 06/10/24 18:58 06/10/24 18:58 Lab Results 06/10/24 06/10/24 06/10/24 Range/Units 18:58 18:58 18:58 WBC 8.1 (3.8-10.6) k/uL RBC 3.95 L (4.30-5.90) m/uL Hgb 12.4 L (13.0-17.5) gm/dL Hct 37.5 L (39.0-53.0) % MCV 94.9 (80.0-100.0) fL MCH 31.4 (25.0-35.0) pg MCHC 33.1 (31.0-37.0) g/dL RDW 13.8 (11.5-15.5) % Plt Count 133 L (150-450) k/uL MPV 10.5 Neutrophils % 78 % Lymphocytes % 7 % Monocytes % 13 % Eosinophils % 0 % Basophils % 0 % Neutrophils # 6.3 (1.3-7.7) k/uL Lymphocytes # 0.6 L (1.0-4.8) k/uL Monocytes # 1.1 H (0-1.0) k/uL Eosinophils # 0.0 (0-0.7) k/uL Basophils # 0.0 (0-0.2) k/uL Sample Site ABG pH (7.35-7.45) ABG pCO2 (35-45) mmHg ABG pO2 (83-108) mmHg ABG HCO3 (21-25) mmol/L ABG Total CO2 (19-24) mmol/L ABG O2 Saturation (94-97) % ABG Base Excess mmol/L Cornelio Test FiO2 % Sodium 136 L (137-145) mmol/L Potassium 5.4 H (3.5-5.1) mmol/L Chloride 103 (98-107) mmol/L Carbon Dioxide 23 (22-30) mmol/L Anion Gap 10 mmol/L BUN 28 H (9-20) mg/dL Creatinine 0.49 L (0.66-1.25) mg/dL Est GFR (CKD-EPI)AfAm >90 (>60 ml/min/1.73 sqM) Est GFR (CKD-EPI)NonAf >90 (>60 ml/min/1.73 sqM) Glucose 108 H (74-99) mg/dL Plasma Lactic Acid Mac 1.7 (0.7-2.0) mmol/L Calcium 8.9 (8.4-10.2) mg/dL Total Bilirubin 1.5 H (0.2-1.3) mg/dL AST 140 H (17-59) U/L ALT 119 H (4-49) U/L Alkaline Phosphatase 92 (38-126) U/L Troponin I (0.000-0.034) ng/mL NT-Pro-B Natriuret Pep 3980 pg/mL Total Protein 6.7 (6.3-8.2) g/dL Albumin 3.6 (3.5-5.0) g/dL Influenza Type A (PCR) (Not Detectd) Influenza Type B (PCR) (Not Detectd) RSV (PCR) (Not Detectd) SARS-CoV-2 (PCR) (Not Detectd) 06/10/24 06/10/24 06/10/24 Range/Units 18:58 18:58 18:59 WBC (3.8-10.6) k/uL RBC (4.30-5.90) m/uL Hgb (13.0-17.5) gm/dL Hct (39.0-53.0) % MCV (80.0-100.0) fL MCH (25.0-35.0) pg MCHC (31.0-37.0) g/dL RDW (11.5-15.5) % Plt Count (150-450) k/uL MPV Neutrophils % % Lymphocytes % % Monocytes % % Eosinophils % % Basophils % % Neutrophils # (1.3-7.7) k/uL Lymphocytes # (1.0-4.8) k/uL Monocytes # (0-1.0) k/uL Eosinophils # (0-0.7) k/uL Basophils # (0-0.2) k/uL Sample Site Right Brachial ABG pH 7.27 L (7.35-7.45) ABG pCO2 57 H (35-45) mmHg ABG pO2 360 H (83-108) mmHg ABG HCO3 26 H (21-25) mmol/L ABG Total CO2 28 H (19-24) mmol/L ABG O2 Saturation 100.4 H (94-97) % ABG Base Excess -1.5 mmol/L Cornelio Test Yes FiO2 100 % Sodium (137-145) mmol/L Potassium (3.5-5.1) mmol/L Chloride (98-107) mmol/L Carbon Dioxide (22-30) mmol/L Anion Gap mmol/L BUN (9-20) mg/dL Creatinine (0.66-1.25) mg/dL Est GFR (CKD-EPI)AfAm (>60 ml/min/1.73 sqM) Est GFR (CKD-EPI)NonAf (>60 ml/min/1.73 sqM) Glucose (74-99) mg/dL Plasma Lactic Acid Mac (0.7-2.0) mmol/L Calcium (8.4-10.2) mg/dL Total Bilirubin (0.2-1.3) mg/dL AST (17-59) U/L ALT (4-49) U/L Alkaline Phosphatase (38-126) U/L Troponin I 0.160 H* (0.000-0.034) ng/mL NT-Pro-B Natriuret Pep pg/mL Total Protein (6.3-8.2) g/dL Albumin (3.5-5.0) g/dL Influenza Type A (PCR) Not Detected (Not Detectd) Influenza Type B (PCR) Not Detected (Not Detectd) RSV (PCR) Not Detected (Not Detectd) SARS-CoV-2 (PCR) Not Detected (Not Detectd) - Radiology Data Chest x-ray: No acute cardiopulmonary disease/process. Critical Care Time Critical Care Time: Yes Total Critical Care Time: 40 Disposition Clinical Impression: Respiratory distress, COPD exacerbation, Elevated troponin Disposition: ADMITTED IP TO THIS HOSP Condition: Stable Is patient prescribed a controlled substance at d/c from ED?: No Time of Disposition: 20:56
[2024-06-10 19:03] LABS: ABG Base Excess -1.5 mmol/L; ABG HCO3 26 mmol/L (21-25); ABG Oxygen Saturation 100.4 % (94-97); ABG PCO2 57 mmHg (35-45); ABG PH 7.27 (7.35-7.45); ABG PO2 360 mmHg (83-108); ABG TCO2 28 mmol/L (19-24); Allen Test Performed? Yes
--- NOTE | 2024-06-10 19:16 | XR ---
EXAMINATION TYPE: XR chest 1V portable DATE OF EXAM: 06/10/2024 7:07 PM CLINICAL INDICATION:Male, 79 years old with history of Dyspnea; [facility] COMPARISON: Chest radiographs from TECHNIQUE: XR chest 1V portable Frontal view of the chest. FINDINGS: Sternal wires and mediastinal vascular clips from CABG. EKG wires are projecting over the chest. Lungs/Pleura: Hyperinflated appearance of emphysema. There is no evidence of pleural effusion, foca l consolidation, or pneumothorax. Pulmonary vascularity: Unremarkable. Heart/mediastinum: Cardiomediastinal silhouette is unremarkable. Musculoskeletal: No acute osseous pathology. Other findings: None Lines/Tubes: IMPRESSION: No acute cardiopulmonary disease/process.
[2024-06-10 19:46] LABS: ALT 119 U/L (4-49); African American GFR (CKD) >90 (>60 ml/min/1.73 sqM); Albumin 3.6 g/dL (3.5-5.0); Anion Gap 10 mmol/L; Blood Urea Nitrogen 28 mg/dL (9-20); Calcium 8.9 mg/dL (8.4-10.2); Carbon Dioxide 23 mmol/L (22-30); Chloride 103 mmol/L (98-107); Glucose 108 mg/dL (74-99); Non-African American GFR(CKD) >90 (>60 ml/min/1.73 sqM); Sodium 136 mmol/L (137-145); Total Bilirubin 1.5 mg/dL (0.2-1.3)
[2024-06-10 19:47] LABS: Potassium 5.4 mmol/L (3.5-5.1); Total Protein 6.7 g/dL (6.3-8.2)
[2024-06-10 19:48] LABS: AST 140 U/L (17-59); Alkaline Phosphatase 92 U/L (38-126)
[2024-06-10] MEDS: IPRATROPIUM-ALBUTEROL 3 ML NEB INHALATION STA ×3 (19:52→20:08)
[2024-06-10 19:54] LABS: NT-Pro-B-Type Natriuretic Pept 3980 pg/mL
[2024-06-10] MEDS: methylPREDNISolone SOD SUCCI 125 MG/2 ML VIAL IV STA (19:54)
[2024-06-10 20:07] LABS: Basophils % (A) 0 %; Eosinophils % (A) 0 %; HCT 37.5 % (39.0-53.0); HGB 12.4 gm/dL (13.0-17.5); Lymphocytes # (A) 0.6 k/uL (1.0-4.8); Lymphocytes % (A) 7 %; MCH 31.4 pg (25.0-35.0); MCHC 33.1 g/dL (31.0-37.0); MCV 94.9 fL (80.0-100.0); Mean Platelet Volume 10.5; Monocytes # (A) 1.1 k/uL (0-1.0); Monocytes % (A) 13 %; Neutrophils # (A) 6.3 k/uL (1.3-7.7); Neutrophils % (A) 78 %; Platelet Count 133 k/uL (150-450); RBC 3.95 m/uL (4.30-5.90); RDW 13.8 % (11.5-15.5); WBC 8.1 k/uL (3.8-10.6)
[2024-06-10] MEDS ORDERED: HEPARIN SODIUM 1,000 UN/ML (10ML VL) IV PRN (20:16)
[2024-06-10] MEDS ORDERED: NALOXONE 0.4 MG/ML 1 ML VIAL IV PRN (20:56)
[2024-06-10] MEDS: ASPIRIN 81 MG PO STA (20:58)
[2024-06-10] MEDS: HEPARIN SODIUM 1,000 UN/ML (10ML VL) IV ONE (20:59)
[2024-06-10] MEDS: HEPARIN SOD,PORK IN 0.45% NACL 25,000 UNIT in 0.45% NACL 1 250ML.BAG IV SCH (21:03)
[2024-06-10 22:07] LABS: INR 1.1 (<1.2); Prothrombin Time 12.1 sec (10.0-12.5)
[2024-06-10] MEDS: ALBUTEROL NEBULIZED 2.5 MG/3 ML INHALATION SCH (22:08)
[2024-06-10 22:51] LABS: Partial Thromboplastin Time 20.8 sec (22.0-30.0)
[2024-06-11] MEDS ORDERED: IPRATROPIUM-ALBUTEROL 3 ML NEB INHALATION PRN (01:10)
--- NOTE | 2024-06-11 01:17 | P.CNPUL ---
History of Present Illness Consult date: 06/11/24 Requesting physician: Shane Bryant Reason for consult: COPD Chief complaint: shortenss of breath History of present illness: This is an 79-year-old male with past medical history significant for hypertension, hyperlipidemia, coronary artery disease with previous CABG x 3 in 2016, very severe COPD/emphysema, former tobacco dependence. His primary care provider is Dr. Taveras. He has been recently established with Dr. Claros in the pulmonary office. Most recent PFT consistent with very severe COPD/emphysema. FEV1/FVC ratio 35%, FEV1 0.67 L or 25% of predicted, uncorrected DLCO 21% pred icted. He is maintained on a combination of Trelegy maintenance inhaler and as needed Ventolin HFA inhaler. He no longer smokes, but carries a heavy smoking history. Not currently oxygen dependent at home. Of note, patient states he recently had a stress test at the cardiology office. Results are unknown to me. He presents the emergency department via EMS yesterday evening. He is complaining of worsening shortness of breath over the last 3 to 4 days. This is accompanied with congested cough and minimal green sputum production. Also endorses chest congestion and tightness. He states he had an isolated episode of fever at home. Denies sick contacts. Denies chest pain, heart palpitations, dizziness, syncopal events, lower extremity swelling. He was in some respiratory distress, and was placed on noninvasive BiPAP in the emergency department. Initial BiPAP settings are 12/6 and FiO2 of 50%. ABG consistent with respiratory acidosis. PaO2 360, pCO2 57, pH of 7.27. On my evaluation, patient is in room 385. He is alert and oriented x 3. Remains on bipap with the above mentioned settings, but FIO2 has been dropped down to 50%. Respiratory rate mid 20s BPM and average Vt 500 ml. BiPAP makes communication a little difficult. There is some accessory muscle use and conversational dyspnea. No clinical signs of CO2 narcosis. Chest x-ray does not show any acute cardiopulmo nary process. No focal infiltrates or evidence of pneumonia. There is hyperinflation and flattening of the diaphragms consistent with COPD. Old sternotomy wires in place. Cardiac silhouette is stable. No significant pulmonary vascular congestion, pleural effusions. CBC: WBC count 8.1, hemoglob in 12.4, hematocrit 37.5, platelets 133. CMP: Sodium 136, potassium 5.4, chloride 103, serum bicarb 23, BUN 28, creatinine 0.49, glucose 108. LFTs mildly elevated. Troponin 0.16. NT proBNP elevated at 4000. EKG showing sinus tachycardia and diffuse ST T/T-wave abnormalities. Patient has been started on heparin infusion in the emergency department. Negative for influenza, RSV, COVID. Afebrile currently. Remaining vital signs are stable. Review of Systems REVIEW OF SYSTEMS: CONSTITUTIONAL: Denies any recent significant weight loss or weight gain. EYES: Denies change in vision. EARS, NOSE, MOUTH, THROAT: Denies headaches, denies sore throat. CARDIOVASCULAR: Denies chest pain, palpitations or syncopal episodes. RESPIRATORY: See HPI GASTROINTESTINAL: Admits reduced appetite. Denies abdominal pain, nausea and vomiting, or diarrhea GENITOURINARY: Denies hematuria, denies infections. MUSKULOSKELETAL: Denies pain, denies swelling. INTEGUMENTARY: Denies rash, denies eczema. NEUROLOGICAL: Denies recent memory loss, no recent seizure activity. PSYCHIATRIC: Denies anxiety, denies depression. HEMATOLOGIC/LYMPHATIC: Denies anemia, denies enlarged lymph node Past Medical History Past Medical History: COPD, Hypertension Additional Past Medical History / Comment(s): CHF History of Any Multi-Drug Resistant Organisms: None Reported Past Surgical History: Coronary Bypass/CABG Past Anesthesia/Blood Transfusion Reactions: No Reported Reaction Past Psychological History: No Psychological Hx Reported Smoking Status: Never smoker Past Alcohol Use History: Occasional Past Drug Use History: None Reported - Past Family History Father Family Medical History: Myocardial Infarction ([place]) Mother Family Medical History: Myocardial Infarction ([place]) Medications and Allergies Allergies Allergy/AdvReac Type Severity Reaction Status Date / Time No Known Allergies Allergy Verified 06/10/24 18:33 Physical Exam Vitals: Vital Signs Temp Pulse Pulse Resp BP BP Pulse Ox 06/11/24 00:26 06/10/24 22:13 06/10/24 21:45 97.6 F 89 23 120/66 100 06/10/24 21:04 87 16 126/69 96 06/10/24 20:07 85 06/10/24 19:52 82 06/10/24 19:22 98.1 F 93 26 H 102/65 98 06/10/24 19:06 06/10/24 18:43 101 H 22 93/60 97 06/10/24 18:35 06/10/24 18:29 97.7 F 81 22 94/63 97 FiO2 06/11/24 00:26 50 06/10/24 22:13 50 06/10/24 21:45 50 06/10/24 21:04 06/10/24 20:07 06/10/24 19:52 06/10/24 19:22 06/10/24 19:06 50 06/10/24 18:43 06/10/24 18:35 100 06/10/24 18:29 Intake and Output 06/10/24 06/10/24 06/11/24 14:59 22:59 06:59 Other: Weight 72.575 kg GENERAL EXAM: Alert, 79-year-old white male on BiPAP, in mild to moderate respiratory distress. HEAD: Normocephalic and atraumatic EYES: Normal reaction of pupils, equal size. NOSE: Clear with pink turbinates. THROAT: No erythema or exudates. NECK: No masses, no JVD. CHEST: Barrel chest. LUNGS: Equal air entry with markedly diminished lung sounds bilaterally. No significant wheezing, rhonchi, crackles. Conversational dyspnea speaking in phrases. Some accessory muscle use and retractions CVS: S1 and S2 normal with no audible murmur, regular rhythm. No extra heart sounds ABDOMEN: No hepatosplenomegaly, active bowel sounds, no guarding or rigidity. SPINE: No scoliosis or deformity SKIN: No rashes CENTRAL NERVOUS SYSTEM: No focal deficits, tone is normal in all 4 extremities. EXTREMITIES: Digital clubbing. No significant lower extremity edema. Peripheral pulses are intact. Results - Laboratory Findings CBC and BMP: 06/10/24 18:58 06/10/24 18:58 ABG ABG pH 7.27 (7.35-7.45) L 06/10/24 18:59 ABG pCO2 57 mmHg (35-45) H 06/10/24 18:59 ABG pO2 360 mmHg (83-108) H 06/10/24 18:59 ABG O2 Saturation 100.4 % (94-97) H 06/10/24 18:59 PT/INR, D-dimer PT 12.1 sec (10.0-12.5) 06/10/24 21:20 INR 1.1 (<1.2) 06/10/24 21:20 Abnormal lab findings: Abnormal Labs 06/10/24 06/10/24 06/10/24 18:58 18:58 18:58 RBC 3.95 L Hgb 12.4 L Hct 37.5 L Plt Count 133 L Lymphocytes # 0.6 L Monocytes # 1.1 H APTT ABG pH ABG pCO2 ABG pO2 ABG HCO3 ABG Total CO2 ABG O2 Saturation Sodium 136 L Potassium 5.4 H BUN 28 H Creatinine 0.49 L Glucose 108 H Total Bilirubin 1.5 H AST 140 H ALT 119 H Troponin I 0.160 H* 06/10/24 06/10/24 18:59 21:20 RBC Hgb Hct Plt Count Lymphocytes # Monocytes # APTT 20.8 L ABG pH 7.27 L ABG pCO2 57 H ABG pO2 360 H ABG HCO3 26 H ABG Total CO2 28 H ABG O2 Saturation 100.4 H Sodium Potassium BUN Creatinine Glucose Total Bilirubin AST ALT Troponin I - Diagnostic Findings Chest x-ray: image reviewed Assessment and Plan Assessment: Acute hypoxemic and hypercapnic respiratory failure, secondary to acute COPD exacerbation. Chest x-ray does not show any acute cardiopulmonary process. No focal infiltrates or evidence of pneumonia. There is hyperinflation and flattening of the diaphragms consistent with COPD. Old sternotomy wires in place. Cardiac silhouette is stable. No significant pulmonary vascular congestion, pleural effusions. Negative for influenza, RSV, COVID Very severe COPD/emphysema, with an FEV1 25% of predicted. Normally maintained on a combination of Trelegy maintenance inhaler and as needed Ventolin HFA inhaler. Elevated troponins, rule out non-ST elevation IN, started on a heparin infusion per protocol in the emergency department Elevated liver enzymes, undetermined significance History of hypertension History of hyperlipidemia History of coronary artery disease, with previous CABG x 3 in 2016 Former tobacco dependence Plan: Continue BiPAP support with current settings overnight. Continue to wean FIO2 as tolerated Most recent ABG was reviewed Currently, no clinical signs of CO2 narcosis Start patient on combination of budesonide inhalation, formoterol inhalation, DuoNebs [id number], IV Solu-Medrol Add empiric azithromycin Patient currently on heparin infusion per protocol Cardiology was asked to evaluate this patient We will continue to follow, further recommendations forthcoming I have personally seen and examined the patient, performed the documentation and the assessment and plan as written. Number of minutes spent on the visit:20 Time with Patient: Greater than 30
[2024-06-11] MEDS: AZITHROMYCIN 500 MG TAB PO SCH (01:23)
[2024-06-11 01:25] LABS: Basophils % (A) 0 %; Eosinophils % (A) 0 %; HCT 40.3 % (39.0-53.0); HGB 13.1 gm/dL (13.0-17.5); Lymphocytes # (A) 0.3 k/uL (1.0-4.8); Lymphocytes % (A) 4 %; MCH 30.4 pg (25.0-35.0); MCHC 32.4 g/dL (31.0-37.0); MCV 93.6 fL (80.0-100.0); Mean Platelet Volume 7.9; Monocytes # (A) 0.3 k/uL (0-1.0); Monocytes % (A) 4 %; Neutrophils % (A) 91 %; RDW 13.5 % (11.5-15.5); WBC 6.6 k/uL (3.8-10.6)
[2024-06-11 01:45] LABS: INR 1.2 (<1.2); Prothrombin Time 12.6 sec (10.0-12.5)
[2024-06-11 01:47] LABS: Platelet Count 292 k/uL (150-450)
[2024-06-11 01:50] LABS: Partial Thromboplastin Time 48.1 sec (22.0-30.0)
--- NOTE | 2024-06-11 02:35 | P.HPIM ---
History of Present Illness H&P Date: 06/10/24 Patient is a 80-year-old male with a past medical history of CH (unknown type), CABG, PAD with femoral bypass, COPD with chronic hypoxic respiratory failure on 2 L nasal cannula oxygen as needed at home, and hypertension who came in to the ED for difficulty of breathing. Patient notes that he already experienced some shortness of breath last Sunday afternoon and used home oxygen 2 L nasal cannula and was at low to high 90s on O2 saturation. Today he notes worsening of shortness of breath which brought him to the ED. He has an associated productive cough with greenish sputum and subjective fevers. He denies chest pain, palpitations, orthopnea, PND, dizziness, nausea, vomiting and lightheadedness. He also denied LE edema, recent travel, sick contacts. Chest x-ray shows no acute cardiopulmonary disease or process. EKG shows sinus tachycardia with low voltage, biphasic T-waves in precordial leads V3-V5 with TWI in leads II and aVF with good R wave progression and normal QTC interval of 371. No prior EKG available for comparison. WBC 8.1 hemoglobin 12.4 hematocrit 37.5 platelets 133. ABG pH 7.27 CO2 57 O2 360 bicarb 26. Sodium 136 potassium 5.4 total bilirubin 1.5 AST 140 ALT 119 troponin 0.16 proBNP 3980 BUN 28 creatinine 0.49 ED documentation reviewed. Review of systems: Pertinent positives and negatives as discussed in HPI, a complete review of systems was performed and all other systems are negative. Family history: Brother had history of heart problems per the patient. Sister has hypertension Social history: Tobacco: [id number] history Alcohol: Drinks 2 glasses of wine daily Recreational drugs: Denies illicit drug use Travel: No recent travel history Occupation: Retired from driving trucks Physical examination: Vital signs reviewed General: non toxic, on Bipap, no distress, appears at stated age, normal weight Derm: no unusual rashes/lesions, warm Head: atraumatic, normocephalic, symmetric Eyes: EOMI, no lid lag, anicteric sclera, pupils equal round reactive to light ENT: Nose and ears atraumatic Neck: No cervical lymphadenopathy, trachea midline, supple Mouth: no lip lesion, mucus membranes moist Cardiovascular: S1S2 reg, no murmur, no edema Lungs: Decreased bilateral breath sounds in all lung barlow. Rhonchi and rales heard all throughout lung barlow but right worse than left, no accessory muscle use Abdominal: soft, nontender to palpation, no guarding Ext: muscle strength 5 out of 5 in all 4 extremities grossly, no gross muscle atrophy, no contractures, positive weak dorsalis pedis pulse bilateral, clubbing noted on malvin fingers Neuro: CN II-XI grossly intact, no gross focal neuro deficits Psych: Alert, oriented, appropriate affect and mood Assessment/Plan: #. Shortness of breath likely secondary to acute COPD exacerbation with acute on chronic hypercapnic and hypoxic respiratory failure BiPAP as needed, continue supplemental oxygen Ordered DuoNeb inhaled round the clock and as needed, Perforomist 20 mcg twice a day, Pulmicort 1 mg twice a day and IV Solu-Medrol 60 mg every 6 hours Check procalcitonin levels Consult pulmonology #. Elevated troponin, NSTEMI versus type II CA C/w Heparin infusion Status post aspirin 324 mg p.o. in the emergency room, continue with 81 mg p.o. daily Continue patient on Lipitor 80 mg p.o. Consult Cardiology Cardiac monitoring Trend troponin #. Normocytic anemia, mild, no baseline available for comparison Will monitor CBC #. Thrombocytopenia No baseline Will monitor CBC #. Elevated proBNP Order echocardiography # Mild hyponatremia Will monitor BMP #. Mild hyperkalemia likely secondary to hemolysis Will monitor BMP #. Prerenal azotemia Will monitor BMP # Abnormal elevated LFTs, unknown etiology Will monitor CMP Obtain RUQ US DVT Prophylaxis: Heparin infusion GI prophylaxis: Protonix 40 mg once a day The patient is admitted with an anticipated more than than 2 midnight stay for evaluation of shortness of breath CODE STATUS: Full Discussed with: Patient Anticipated discharge place: Home Past Medical History Past Medical History: COPD, Hypertension Additional Past Medical History / Comment(s): CHF History of Any Multi-Drug Resistant Organisms: None Reported Past Surgical History: Coronary Bypass/CABG Past Anesthesia/Blood Transfusion Reactions: No Reported Reaction Past Psychological History: No Psychological Hx Reported Smoking Status: Never smoker Past Alcohol Use History: Occasional Past Drug Use History: None Reported - Past Family History Father Family Medical History: Myocardial Infarction (CA) Mother Family Medical History: Myocardial Infarction ([place]) Medications and Allergies Allergies Allergy/AdvReac Type Severity Reaction Status Date / Time No Known Allergies Allergy Verified 06/10/24 18:33 Physical Exam Vitals: Vital Signs Temp Pulse Pulse Resp BP BP Pulse Ox 06/10/24 22:13 06/10/24 21:45 97.6 F 89 23 120/66 100 06/10/24 21:04 87 16 126/69 96 06/10/24 20:07 85 06/10/24 19:52 82 06/10/24 19:22 98.1 F 93 26 H 102/65 98 06/10/24 19:06 06/10/24 18:43 101 H 22 93/60 97 06/10/24 18:35 06/10/24 18:29 97.7 F 81 22 94/63 97 FiO2 06/10/24 22:13 50 06/10/24 21:45 50 06/10/24 21:04 06/10/24 20:07 06/10/24 19:52 06/10/24 19:22 06/10/24 19:06 50 06/10/24 18:43 06/10/24 18:35 100 06/10/24 18:29 Intake and Output 06/10/24 06/10/24 06/11/24 14:59 22:59 06:59 Other: Weight 72.575 kg Results CBC & Chem 7: 06/11/24 01:06 06/10/24 18:58 Labs: Abnormal Lab Results - Last 24 Hours (Table) 06/10/24 06/10/24 06/10/24 Range/Units 18:58 18:58 18:58 RBC 3.95 L (4.30-5.90) m/uL Hgb 12.4 L (13.0-17.5) gm/dL Hct 37.5 L (39.0-53.0) % Plt Count 133 L (150-450) k/uL Lymphocytes # 0.6 L (1.0-4.8) k/uL Monocytes # 1.1 H (0-1.0) k/uL APTT (22.0-30.0) sec ABG pH (7.35-7.45) ABG pCO2 (35-45) mmHg ABG pO2 (83-108) mmHg ABG HCO3 (21-25) mmol/L ABG Total CO2 (19-24) mmol/L ABG O2 Saturation (94-97) % Sodium 136 L (137-145) mmol/L Potassium 5.4 H (3.5-5.1) mmol/L BUN 28 H (9-20) mg/dL Creatinine 0.49 L (0.66-1.25) mg/dL Glucose 108 H (74-99) mg/dL Total Bilirubin 1.5 H (0.2-1.3) mg/dL AST 140 H (17-59) U/L ALT 119 H (4-49) U/L Troponin I 0.160 H* (0.000-0.034) ng/mL 06/10/24 06/10/24 Range/Units 18:59 21:20 RBC (4.30-5.90) m/uL Hgb (13.0-17.5) gm/dL Hct (39.0-53.0) % Plt Count (150-450) k/uL Lymphocytes # (1.0-4.8) k/uL Monocytes # (0-1.0) k/uL APTT 20.8 L (22.0-30.0) sec ABG pH 7.27 L (7.35-7.45) ABG pCO2 57 H (35-45) mmHg ABG pO2 360 H (83-108) mmHg ABG HCO3 26 H (21-25) mmol/L ABG Total CO2 28 H (19-24) mmol/L ABG O2 Saturation 100.4 H (94-97) % Sodium (137-145) mmol/L Potassium (3.5-5.1) mmol/L BUN (9-20) mg/dL Creatinine (0.66-1.25) mg/dL Glucose (74-99) mg/dL Total Bilirubin (0.2-1.3) mg/dL AST (17-59) U/L ALT (4-49) U/L Troponin I (0.000-0.034) ng/mL Thrombosis Risk Factor Assmnt - Choose All That Apply Any of the Below Risk Factors Present?: Yes Each Factor Represents 1 point: Abnormal pulmonary function (COPD) Other Risk Factors: Yes Each Risk Factor Represents 3 Points: Age 75 years or older Thrombosis Risk Factor Assessment Total Risk Factor Score: 4 Thrombosis Risk Factor Assessment Level: Moderate Risk
[2024-06-11 03:22] LABS: HCT 42.6 % (39.0-53.0); HGB 13.2 gm/dL (13.0-17.5); Hypochromasia Slight; MCH 29.8 pg (25.0-35.0); MCHC 31.1 g/dL (31.0-37.0); MCV 95.8 fL (80.0-100.0); Mean Platelet Volume 8.2; Platelet Count 315 k/uL (150-450); RBC 4.45 m/uL (4.30-5.90); RDW 13.9 % (11.5-15.5); WBC 6.6 k/uL (3.8-10.6)
[2024-06-11 03:48] LABS: ALT 119 U/L (4-49); AST 99 U/L (17-59); African American GFR (CKD) >90 (>60 ml/min/1.73 sqM); Albumin 3.6 g/dL (3.5-5.0); Alkaline Phosphatase 118 U/L (38-126); Anion Gap 8 mmol/L; Blood Urea Nitrogen 33 mg/dL (9-20); Calcium 9.3 mg/dL (8.4-10.2); Carbon Dioxide 25 mmol/L (22-30); Chloride 102 mmol/L (98-107); Glucose 138 mg/dL (74-99); Non-African American GFR(CKD) >90 (>60 ml/min/1.73 sqM); Potassium 4.2 mmol/L (3.5-5.1); Sodium 135 mmol/L (137-145); Total Bilirubin 0.9 mg/dL (0.2-1.3); Total Protein 6.6 g/dL (6.3-8.2)
--- NOTE | 2024-06-11 03:54 | CT ---
EXAM: CT Angiography Chest With Intravenous Contrast CLINICAL HISTORY: ITS.REASON CT Reason: r/o PE TECHNIQUE: Axial computed tomographic angiography images of the chest with intravenous contrast. CTDI is 22.9 mGy and DLP is 264.1 mGy-cm. This CT exam was performed using one or more of the following dose reduction techniques: automated exposure control, adjustment of the mA and/or kV according to patient size, and/or use of iterative reconstruction technique. MIP reconstructed images were created and reviewed. COMPARISON: No relevant prior studies available. FINDINGS: LUNGS: No focal consolidation, pleural effusion, or pneumothorax. Atelectasis at the lung bases. Severe centrilobular emphysema. HEART: Cardiomegaly. VASCULATURE: No acute pulmonary embolism. Atherosclerotic changes of the aorta. THYROID: Within normal limits. MEDIASTINUM + LYMPH NODES: There are no pathologically enlarged mediastinal, hilar, or axillary lymph nodes. SUPERIOR ABDOMEN: Hepatic steatosis. MUSCULOSKELETAL: Degenerative changes. IMPRESSION: No acute pulmonary embolism.
[2024-06-11] MEDS: ATORVASTATIN 80 MG TAB PO STA (04:04)
[2024-06-11] MEDS: PANTOPRAZOLE 40 MG TABLET PO SCH (06:29)
[2024-06-11] MEDS: methylPREDNISolone SOD SUCCI 125 MG/2 ML VIAL IV SCH (06:30)
[2024-06-11] MEDS: IPRATROPIUM-ALBUTEROL 3 ML NEB INHALATION SCH (07:36)
[2024-06-11] MEDS: FORMOTEROL FUMARATE 20 MCG/2 ML NEBU INHALATION SCH (07:37)
[2024-06-11] MEDS: BUDESONIDE 1 MG/2 ML NEBU INHALATION SCH (07:37)
[2024-06-11] MEDS ORDERED: ATORVASTATIN 40 MG TAB PO SCH (09:00)
[2024-06-11] MEDS: ASPIRIN 81 MG PO SCH (09:08)
[2024-06-11] MEDS: TAMSULOSIN 0.4 MG CAP.ER.24H PO SCH (10:58)
[2024-06-11] MEDS: SERTRALINE 50 MG TAB PO SCH (10:58)
[2024-06-11 11:38] VITALS: BMI 23.8
--- NOTE | 2024-06-11 12:13 | P.PN ---
Subjective Progress Note Date: 06/11/24 Subjective: Patient seen at bedside. No significant overnight events. Patient has no complaints this morning, reports he is feeling significantly better compared to when he arrived. Pertinent positives and negatives discussed above, a complete review of systems was preformed and all the other sytems were negative. Vitals Signs Reveiwed. General: non toxic, no distress, appears at stated age, normal weight Derm: no unusual rashes/lesions, warm Head: atraumatic, normocephalic, symmetric Eyes: EOMI, no lid lag, anicteric sclera, pupils equal round reactive to light ENT: Nose and ears atraumatic Neck: No cervical lymphadenopathy, trachea midline, supple Mouth: no lip lesion, mucus membranes moist Cardiovascular: S1S2 reg, no murmur, no edema Lungs: Decreased bilateral breath sounds in all lung barlow. Rhonchi and rales heard all throughout lung barlow but right worse than left, no accessory muscle use Abdominal: soft, nontender to palpation, no guarding Ext: muscle strength 5 out of 5 in all 4 extremities grossly, no gross muscle atrophy, no contractures, positive weak dorsalis pedis pulse bilateral, clubbing noted on malvin fingers Neuro: CN II-XI grossly intact, no gross focal neuro deficits Psych: Alert, oriented, appropriate affect and mood Data Reveiwed Today: Patient Labs: Sodium 135, potassium 4.2, BUN 33, creatinine 0.6, AST 99, ALT 119, albumin 3.6, WBC 6.6, hemoglobin 13.2, MCV 95.8, PT 12.6, INR 1.2, APTT 48.1, and D-dimer 2.98. Imaging: Pending echo abdominal ultrasound for today Assesment and Plan: Shortness of breath likely secondary to acute COPD exacerbation with acute on chronic hypercapnic and hypoxic respiratory failure: Patient has oxygen at home as needed, reports he only uses it once or twice a month Patient required BiPAP at night, now saturating well on 2 L nasal cannula. Will start to wean patient off oxygen as tolerated Continue DuoNeb inhaled round the clock and as needed, Perforomist 20 mcg twice a day, Pulmicort 1 mg twice a day and IV Solu-Medrol 60 mg every 6 hours ABG shows pH 7.2, pCO2 57, ABG bicarb 26, ABG pO2 360 Procalcitonin 0.79 Viral respiratory panel negative Per pulmonology continue COPD management as above, in addition add azithromycin 500 mg p.o. (3 doses) Elevated troponin, NSTEMI versus type II ND: C/w Heparin infusion Status post aspirin 324 mg p.o. in the emergency room, continue with 81 mg p.o. daily Continue patient on Lipitor 80 mg p.o. Cardiology on board Cardiac monitoring Troponin 0.160 >0.122 Follow-up results of echo Transaminitis, unknown etiology: Will monitor CMP Follow-up results of right upper quadrant ultrasound Prerenal azotemia causing urinary retention: No history of urinary retention Patient required straight cath overnight Started 0.4 Flomax p.o. Pending results of bladder scan Normocytic anemia, mild, no baseline available for comparison: Will monitor CBC . Thrombocytopenia: Resolved 133 on arrival now 315 Elevated proBNP: Denies complaints of chest pain Follow-up with results of echo Cardiology consulted Mild hyponatremia: Sodium 135 this morning Continue to monitor Mild hyperkalemia likely secondary to hemolysis: Resolved Potassium this morning 4.2 down from 5.4 on admission Continue to monitor Prerenal azotemia: F none E none N heart healthy diet A normally ambulates at home unassisted DVT ppx: Heparin 25,000 units IV 12 units/KG/ Code Status: Full code Anticipated discharge place: Pending clinical course Anticipated discharge time: Pending clinical course I have seen and evaluated the patient today. Discussed with the resident and agree with the residents subjective and objective as documented in the resident's note. The assessment and plan was discussed and outlined as below. Patient reports improvement in his breathing. 80% better. Urinary retention overnight requiring straight cath. No chest pain. Acute on chronic hypercapnic and hypoxic respiratory failure secondary to acute COPD exacerbation: Procal 0.79. No PNA seen on CTA chest. DuoNeb scheduled and PRN for SOB/wheezing. Solumedrol 60 mg IV Q6H. Pulmicort 1mg INH BID. Formoterol 20 mcg INH BID. Empirically started on Azithromycin by Pulmonary. Type II ND: Currently on Heparin drip. ASA 81 mg PO QD. Lipitor 80 mg PO QHS. Echo pending. Telemetry monitoring. Cardiology consulted. Elevated D-Dimer: CTA chest ruled out PE. Thrombocytopenia Hyponatremia: Mild and improving. Prerenal azotemia with Urinary retention: Flomax 0.4 mg PO QD. Bladder scan PRN. Transaminitis: Obstructive. Liver and GB US pending. Resolved: Hyperkalemia Objective - Vital Signs Vital signs: Vital Signs Temp 97.8 F 06/11/24 04:00 Pulse 74 06/11/24 04:00 Resp 20 06/11/24 04:00 BP 143/69 06/11/24 04:00 Pulse Ox 92 L 06/11/24 04:00 FiO2 50 06/11/24 00:26 Intake & Output 06/10/24 06/10/24 06/11/24 06:59 18:59 06:59 Output Total 350 Balance -350 Weight 72.575 kg 75.5 kg Output: Urine 350 Straight 350 Other: Voiding Method Urinal - Labs CBC & Chem 7: 06/11/24 03:02 06/11/24 03:02 Labs: Abnormal Lab Results - Last 24 Hours (Table) 06/10/24 06/10/24 06/10/24 Range/Units 18:58 18:58 18:58 RBC 3.95 L (4.30-5.90) m/uL Hgb 12.4 L (13.0-17.5) gm/dL Hct 37.5 L (39.0-53.0) % Plt Count 133 L (150-450) k/uL Lymphocytes # 0.6 L (1.0-4.8) k/uL Monocytes # 1.1 H (0-1.0) k/uL PT (10.0-12.5) sec INR (<1.2) APTT (22.0-30.0) sec D-Dimer (<0.60) mg/L FEU ABG pH (7.35-7.45) ABG pCO2 (35-45) mmHg ABG pO2 (83-108) mmHg ABG HCO3 (21-25) mmol/L ABG Total CO2 (19-24) mmol/L ABG O2 Saturation (94-97) % Sodium 136 L (137-145) mmol/L Potassium 5.4 H (3.5-5.1) mmol/L BUN 28 H (9-20) mg/dL Creatinine 0.49 L (0.66-1.25) mg/dL Glucose 108 H (74-99) mg/dL Total Bilirubin 1.5 H (0.2-1.3) mg/dL AST 140 H (17-59) U/L ALT 119 H (4-49) U/L Troponin I 0.160 H* (0.000-0.034) ng/mL 06/10/24 06/10/24 06/11/24 Range/Units 18:59 21:20 01:06 RBC (4.30-5.90) m/uL Hgb (13.0-17.5) gm/dL Hct (39.0-53.0) % Plt Count (150-450) k/uL Lymphocytes # (1.0-4.8) k/uL Monocytes # (0-1.0) k/uL PT (10.0-12.5) sec INR (<1.2) APTT 20.8 L 48.1 H (22.0-30.0) sec D-Dimer 2.98 H (<0.60) mg/L FEU ABG pH 7.27 L (7.35-7.45) ABG pCO2 57 H (35-45) mmHg ABG pO2 360 H (83-108) mmHg ABG HCO3 26 H (21-25) mmol/L ABG Total CO2 28 H (19-24) mmol/L ABG O2 Saturation 100.4 H (94-97) % Sodium (137-145) mmol/L Potassium (3.5-5.1) mmol/L BUN (9-20) mg/dL Creatinine (0.66-1.25) mg/dL Glucose (74-99) mg/dL Total Bilirubin (0.2-1.3) mg/dL AST (17-59) U/L ALT (4-49) U/L Troponin I (0.000-0.034) ng/mL 06/11/24 06/11/24 06/11/24 Range/Units 01:06 01:06 03:02 RBC (4.30-5.90) m/uL Hgb (13.0-17.5) gm/dL Hct (39.0-53.0) % Plt Count (150-450) k/uL Lymphocytes # 0.3 L (1.0-4.8) k/uL Monocytes # (0-1.0) k/uL PT 12.6 H (10.0-12.5) sec INR 1.2 H (<1.2) APTT (22.0-30.0) sec D-Dimer (<0.60) mg/L FEU ABG pH (7.35-7.45) ABG pCO2 (35-45) mmHg ABG pO2 (83-108) mmHg ABG HCO3 (21-25) mmol/L ABG Total CO2 (19-24) mmol/L ABG O2 Saturation (94-97) % Sodium 135 L (137-145) mmol/L Potassium (3.5-5.1) mmol/L BUN 33 H (9-20) mg/dL Creatinine 0.60 L (0.66-1.25) mg/dL Glucose 138 H (74-99) mg/dL Total Bilirubin (0.2-1.3) mg/dL AST 99 H (17-59) U/L ALT 119 H (4-49) U/L Troponin I (0.000-0.034) ng/mL 06/11/24 Range/Units 03:02 RBC (4.30-5.90) m/uL Hgb (13.0-17.5) gm/dL Hct (39.0-53.0) % Plt Count (150-450) k/uL Lymphocytes # (1.0-4.8) k/uL Monocytes # (0-1.0) k/uL PT (10.0-12.5) sec INR (<1.2) APTT (22.0-30.0) sec D-Dimer (<0.60) mg/L FEU ABG pH (7.35-7.45) ABG pCO2 (35-45) mmHg ABG pO2 (83-108) mmHg ABG HCO3 (21-25) mmol/L ABG Total CO2 (19-24) mmol/L ABG O2 Saturation (94-97) % Sodium (137-145) mmol/L Potassium (3.5-5.1) mmol/L BUN (9-20) mg/dL Creatinine (0.66-1.25) mg/dL Glucose (74-99) mg/dL Total Bilirubin (0.2-1.3) mg/dL AST (17-59) U/L ALT (4-49) U/L Troponin I 0.160 H* (0.000-0.034) ng/mL
--- NOTE | 2024-06-11 15:14 | US ---
EXAMINATION TYPE: US abdomen limited DATE OF EXAM: 06/11/2024 COMPARISON: NONE CLINICAL INDICATION: Male, 79 years old with history of elevated LFTs; TECHNIQUE: Multiple sonographic images of the right upper quadrant are obtained. FINDINGS: EXAM MEASUREMENTS: Liver Length: 15.0 cm Gallbladder Wall: 0.25 cm CBD: 0.29 cm Right Kidney: 10.2 x 5.4 x 5.0 cm Shop Hand notes: Suboptimal exam due to patient limited ability to take deep breaths Pancreas: Obscured by bowel gas Liver: wnl Gallbladder: Some layering sludge suggested. No hydropic change, wall thickening, or surrounding flu id. Evidence for sonographic Conrad's sign: NO CBD: wnl Right Kidney: wnl IMPRESSION: Suggestion of some gallbladder sludge. No gallstones or ancillary findings of acute cholecystitis. No biliary ductal dilatation.
--- NOTE | 2024-06-11 19:34 | CA ---
Transthoracic Echo Report Name: Mushtaq Herrera Age: 79 Gender: M : 1945 Exam Date: 06/11/2024 08:44 Exam Location: [facility] Ht (in): 70 Wt (lb): 160 Ordering Physician: Criselda Hernadez MD Attending/Referring Phys: Shield Installer Yandy Greenfield RDCS Procedure CPT: Indications: elevated pro BNP. Concern for CHF Cardiac Hx: Technical Quality: Fair Contrast 1: Total Dose (mL): Contrast 2: Total Dose (mL): MEASUREMENTS (Male / Female) Normal Values 2D ECHO LV Diastolic Diameter PLAX 4.2 cm 4.2 - 5.9 / 3.9 - 5.3 cm LV Systolic Diameter PLAX 2.8 cm IVS Diastolic Thickness 1.1 cm 0.6 - 1.0 / 0.6 - 0.9 cm LVPW Diastolic Thickness 1.0 cm 0.6 - 1.0 / 0.6 - 0.9 cm LV Relative Wall Thickness 0.5 RV Internal Dim ED PLAX 3.2 cm LVOT Diameter 2.3 cm LA Systolic Diameter LX 4.1 cm 3.0 - 4.0 / 2.7 - 3.8 cm LV Diastolic Volume MOD BP 81.9 cm??? 67 - 155 / 56 - 104 cm??? LV Systolic Volume MOD BP 30.7 cm??? - 58 / 19 - 49 cm??? LV Ejection Fraction MOD BP 62.6 % >= 55 % LV Cardiac Index MOD BP 2594.6 cm???/min???m??? LV Diastolic Volume MOD 4C 72.9 cm??? LV Systolic Volume MOD 4C 34.8 cm??? LV Ejection Fraction MOD 4C 52.3 % LV Cardiac Index MOD 4C 1932.5 cm???/min???m??? LV Diastolic Length 4C 7.6 cm LV Systolic Length 4C 6.4 cm LV Diastolic Volume MOD 2C 89.8 cm??? LV Systolic Volume MOD 2C 25.0 cm??? LV Ejection Fraction MOD 2C 72.1 % LV Cardiac Index MOD 2C 3281.8 cm???/min???m??? LV Diastolic Length 2C 7.4 cm LV Systolic Length 2C 5.8 cm LA Volume 47.6 cm??? - 58 / 22 - 52 cm??? LA Volume Index 25.1 cm???/m??? 16 - 28 cm???/m??? M-MODE Aortic Root Diameter MM 3.3 cm AV Cusp Separation MM 2.3 cm DOPPLER AV Peak Velocity 208.6 cm/s AV Peak Gradient 17.4 mmHg AV Mean Velocity 119.5 cm/s AV Mean Gradient 7.6 mmHg AV Velocity Time Integral 39.7 cm LVOT Peak Velocity 174.5 cm/s LVOT Peak Gradient 12.2 mmHg LVOT Velocity Time Integral 31.2 cm LVOT Stroke Volume 133.1 cm??? LVOT Stroke Volume Index 70.1 ml/m??? LVOT Cardiac Index 6745.7 cm???/min???m??? AV Area Cont Eq vti 3.4 cm??? AV Area Cont Eq pk 3.6 cm??? MV Area PHT 3.5 cm??? Mitral E Point Velocity 112.1 cm/s Mitral A Point Velocity 112.6 cm/s Mitral E to A Ratio 1.0 MV Deceleration Time 218.5 ms FINDINGS Left Ventricle Left ventricular ejection fraction is estimated at 55-60 %. Left ventricular cavity size normal. Left ventricular wall thickness normal. Right Ventricle Normal right ventricular size and function. Unable to estimate the right ventricular systolic pressure. Right Atrium Normal right atrial size. No right atrial thrombus or mass seen. Left Atrium Mildly increased left atrial diameter. No left atrial thrombus or mass present. Mitral Valve Structurally normal mitral valve. No mitral stenosis, regurgitation or prolapse. Aortic Valve Trileaflet aortic valve. Aortic valve sclerosis. Mild aortic stenosis with a peak gradient of 17 mmHg and a mean gradient of 8 mmHg. Tricuspid Valve Structurally normal tricuspid valve. No tricuspid regurgitation. Pulmonic Valve Structurally normal pulmonic valve. No pulmonic regurgitation. Pericardium No pericardial effusion. No pleural effusion. Aorta Normal size aortic root and proximal ascending aorta. CONCLUSIONS Diagnosis Elevated NT proBNP, evaluate for congestive heart failure Normal LV size and function Normal RV size and function Mild aortic stenosis Patient tachycardic Previewed by: Dr. Manuel Brian MD (Electronically Signed) Final Date: 11 June 2024 19:33
--- NOTE | 2024-06-11 20:17 | P.CRDCN ---
History of Present Illness Consult date: 06/11/24 History of present illness: HISTORY OF PRESENTING ILLNESS Patient is a 79-year-old male with past medical history of hypertension, dyslipidemia, PAD with bypass in 2010, CABG in 2015. In October 2023 patient was hospitalized for Klebsiella pneumonia. During hospitalization he had elevated troponin with a flat pattern. His echocardiogram at that time showed an EF of 50 to 55% with moderate pulmonary hypertension. This time he presented to the hospital because of symptoms of increased shortness of breath and difficulty breathing. He been having increased productive cough with green sputum production. He is reporting some subjective fevers. On admission chest x-ray did not show significant pulmonary congestion. ECG showed sinus tachycardia with nonspecific ST changes, normal QTc WBC 8.1, hemoglobin 12, potassium 5.4, troponin 0.16, repeat troponin 0.12 REVIEW OF SYSTEMS 14 point review of system is negative except what is mentioned above in HPI. PHYSICAL EXAMINATION Vital signs reviewed. Head: Normocephalic. Eyes: Sclerae nonicteric. Neck: Brisk carotid upstroke, no jugular venous distention. Lungs: Diminished breath sounds, poor inspiratory effort, otherwise no wheezing or rhonchi, no significant crackles audible Heart: Regular rate and rhythm, S1-S2, no S3, no murmur or rub. Abdomen: Soft nontender, positive bowel sounds. Extremities: No edema, intact distal pulses. Neuro: Alert, oritented,. Detailed neuro exam was not performed. ASSESSMENT Acute on Chronic hypoxic respiratory failure likely due to pneumonia Mild elevated troponin, likely demand supply mismatch Mild aortic stenosis CAD s/p CABG 2016 PAD status post bypass 2010 Chronic hypoxia on 2 L oxygen COPD Hypertension Dyslipidemia Cardiac testing Lexiscan December 2023: No evidence of ischemia or infarct Echo: May 2024: EF 55 to 60%, mild aortic stenosis, [facility] Patient does not endorse any symptoms of chest pain chest pressure. Patient had similar presentation in October 2023 when he presented to [facility] with mild elevated troponin when he had hypoxic respiratory failure. His troponin elevation is most likely due to demand supply mismatch. He had a recent Lexiscan nuclear stress test which did not show any reversible or fixed perfusion defect. His echocardiogram also did not show any significant valvular or structural normalities. At this time I will treat patient with optimal guideline directed medical therapy Continue aspirin 81 mg, atorvastatin 40 mg, losartan 50 mg daily, metoprolol tartrate 20 mg twice daily, amlodipine 5 mg daily. Stop heparin loy Kim MD, FACC, RPVI Thank you for allowing [facility] to participate in this patient's care. Feel free to reach out in case of any followup questions. Past Medical History Past Medical History: COPD, Hypertension Additional Past Medical History / Comment(s): CHF History of Any Multi-Drug Resistant Organisms: None Reported Past Surgical History: Coronary Bypass/CABG Additional Past Surgical History / Comment(s): Triple bypass 2015. Bypass artery in groin 2010. Past Anesthesia/Blood Transfusion Reactions: No Reported Reaction Date of Last Stent Placement:: 2014 Past Psychological History: No Psychological Hx Reported Smoking Status: Never smoker Past Alcohol Use History: Occasional Past Drug Use History: None Reported - Past Family History Father Family Medical History: Myocardial Infarction ([place]) Mother Family Medical History: Myocardial Infarction ([place]) Medications and Allergies Home Medications Medication Instructions Recorded Confirmed Type Fluticasone/Umeclidin/Vilanter 1 puff INHALATION RT-DAILY 10/09/23 06/11/24 History [Jorge Alberto Suta 100-62.5-25] Pantoprazole [Protonix] 40 mg PO DAILY 10/09/23 06/11/24 History Losartan [Cozaar] 50 mg PO DAILY 30 Days #30 tab 10/15/23 06/11/24 Rx Metoprolol Succinate (ER) [Toprol 50 mg PO DAILY 30 Days #30 tab 10/15/23 06/11/24 Rx XL] amLODIPine [Norvasc] 5 mg PO DAILY 30 Days #30 tab 10/15/23 06/11/24 Rx Albuterol Sulfate [Albuterol 2 puff INHALATION RT-Q4H PRN 06/11/24 06/11/24 History Sulfate Hfa] Aspirin EC [Ecotrin Low Dose] 81 mg PO DAILY 06/11/24 06/11/24 History Atorvastatin [Lipitor] 40 mg PO DAILY 06/11/24 06/11/24 History Ipratropium-Albuterol Nebulize 3 ml INHALATION RT-TID 06/11/24 06/11/24 History [Duoneb 0.5 mg-3 mg/3 ml Soln] Sertraline [Zoloft] 50 mg PO DAILY 06/11/24 06/11/24 History Allergies Allergy/AdvReac Type Severity Reaction Status Date / Time No Known Allergies Allergy Verified 06/11/24 10:04 Physical Exam Vitals: Vital Signs Temp Pulse Pulse Resp BP BP Pulse Ox 06/11/24 18:55 112 H 06/11/24 18:47 108 H 06/11/24 18:46 108 H 06/11/24 18:36 104 H 06/11/24 16:00 97.7 F 109 H 22 112/63 88 L 06/11/24 15:43 112 H 06/11/24 15:33 108 H 06/11/24 11:57 99 18 109/65 90 L 06/11/24 11:44 80 06/11/24 11:34 80 06/11/24 08:07 84 06/11/24 08:00 98.2 F 94 20 110/56 92 L 06/11/24 07:55 84 06/11/24 07:37 84 95 06/11/24 04:00 97.8 F 74 20 143/69 92 L 06/11/24 02:00 78 25 H 06/11/24 00:26 06/11/24 00:00 97.3 F L 78 25 H 99/56 98 06/10/24 22:13 06/10/24 21:45 97.6 F 89 23 120/66 100 06/10/24 21:04 87 16 126/69 96 FiO2 06/11/24 18:55 06/11/24 18:47 06/11/24 18:46 06/11/24 18:36 06/11/24 16:00 06/11/24 15:43 06/11/24 15:33 06/11/24 11:57 06/11/24 11:44 06/11/24 11:34 06/11/24 08:07 06/11/24 08:00 06/11/24 07:55 06/11/24 07:37 06/11/24 04:00 06/11/24 02:00 06/11/24 00:26 50 06/11/24 00:00 50 06/10/24 22:13 50 06/10/24 21:45 50 06/10/24 21:04 Intake and Output 06/11/24 06/11/24 06/11/24 06:59 14:59 22:59 Intake Total 345.379 613.425 Output Total 350 100 50 Balance -350 245.379 563.425 Intake: Intake, IV Titration 105.379 73.425 Amount Heparin Sod,Pork in 0.45% 105.379 73.425 NaCl 25,000 unit In 0.45 % NaCl 1 250ml.bag @ 12 UNITS/KG/HR 8.709 mls/hr IV .Q24H [facility] Rx#: [id number] Oral 240 540 Output: Urine 350 100 50 Straight 350 Other: Voiding Method Urinal Urinal Weight 75.5 kg 75.5 kg Results 06/11/24 03:02 06/11/24 03:02 Cardiac Enzymes 06/11/24 06/11/24 06/11/24 Range/Units 03:02 03:02 07:10 AST 99 H (17-59) U/L Troponin I 0.160 H* 0.122 H* (0.000-0.034) ng/mL Coagulation 06/10/24 06/11/24 06/11/24 Range/Units 21:20 01:06 01:06 PT 12.1 12.6 H (10.0-12.5) sec APTT 20.8 L 48.1 H (22.0-30.0) sec 06/11/24 06/11/24 Range/Units 07:10 15:16 PT (10.0-12.5) sec APTT 39.4 H 41.7 H (22.0-30.0) sec CBC 06/11/24 06/11/24 Range/Units 01:06 03:02 WBC 6.6 6.6 (3.8-10.6) k/uL RBC 4.30 4.45 (4.30-5.90) m/uL Hgb 13.1 13.2 (13.0-17.5) gm/dL Hct 40.3 42.6 (39.0-53.0) % Plt Count 292 D 315 (150-450) k/uL Comprehensive Metabolic Panel 06/11/24 Range/Units 03:02 Sodium 135 L (137-145) mmol/L Potassium 4.2 (3.5-5.1) mmol/L Chloride 102 (98-107) mmol/L Carbon Dioxide 25 (22-30) mmol/L BUN 33 H (9-20) mg/dL Creatinine 0.60 L (0.66-1.25) mg/dL Glucose 138 H (74-99) mg/dL Calcium 9.3 (8.4-10.2) mg/dL AST 99 H (17-59) U/L ALT 119 H (4-49) U/L Alkaline Phosphatase 118 (38-126) U/L Total Protein 6.6 (6.3-8.2) g/dL Albumin 3.6 (3.5-5.0) g/dL Current Medications Generic Name Dose Route Start Last Admin Trade Name Freq PRN Reason Stop Dose Admin Albuterol/Ipratropium 3 ml 06/11/24 08:00 06/11/24 18:36 Ipratropium-Albuterol 3 Ml Neb INHALATION 3 ml RT-QID RENA Administration Albuterol/Ipratropium 3 ml 06/11/24 01:10 Ipratropium-Albuterol 3 Ml Neb INHALATION RT-Q4H PRN Shortness Of Breath Or Wheezing Aspirin 81 mg 06/11/24 09:00 06/11/24 09:08 Aspirin 81 Mg PO 81 mg DAILY RENA Administration Atorvastatin Calcium 80 mg 06/11/24 21:00 Atorvastatin 80 Mg Tab PO HS RENA Azithromycin 500 mg 06/11/24 00:47 06/11/24 09:09 Azithromycin 500 Mg Tab PO 06/12/24 09:01 500 mg DAILY RENA Administration Protocol Budesonide 1 mg 06/11/24 08:00 06/11/24 18:36 Budesonide 1 Mg/2 Ml Nebu INHALATION 1 mg RT-BID RENA Administration Formoterol Fumarate 20 mcg 06/11/24 08:00 06/11/24 18:44 Formoterol Fumarate 20 Mcg/2 Ml Nebu INHALATION 20 mcg RT-BID RENA Administration Methylprednisolone Sodium Succinate 60 mg 06/11/24 06:00 06/11/24 17:16 Methylprednisolone Sod Succi 125 Mg/2 Ml Vial IV 60 mg Q6HR RENA Administration Naloxone HCl 0.2 mg 06/10/24 20:56 Naloxone 0.4 Mg/Ml 1 Ml Vial IV Q2M PRN Opioid Reversal Pantoprazole Sodium 40 mg 06/11/24 07:30 06/11/24 06:29 Pantoprazole 40 Mg Tablet PO 40 mg AC-BRKFST RENA Administration Sertraline HCl 50 mg 06/11/24 10:45 06/11/24 10:58 Sertraline 50 Mg Tab PO 50 mg DAILY RENA Administration Tamsulosin HCl 0.4 mg 06/11/24 10:45 06/11/24 10:58 Tamsulosin 0.4 Mg Cap.Er.24h PO 0.4 mg PC-BRKFST RENA Administration Intake and Output 06/11/24 06/11/24 06/11/24 06:59 14:59 22:59 Intake Total 345.379 613.425 Output Total 350 100 50 Balance -350 245.379 563.425 Intake: Intake, IV Titration 105.379 73.425 Amount Heparin Sod,Pork in 0.45% 105.379 73.425 NaCl 25,000 unit In 0.45 % NaCl 1 250ml.bag @ 12 UNITS/KG/HR 8.709 mls/hr IV .Q24H [facility] Rx#: [id number] Oral 240 540 Output: Urine 350 100 50 Straight 350 Other: Voiding Method Urinal Urinal Weight 75.5 kg 75.5 kg Patient Weight 06/12/24 06:59 Weight 75.5 kg 06/11/24 03:02 06/11/24 03:02
[2024-06-11] MEDS: ATORVASTATIN 80 MG TAB PO SCH (20:31)
--- NOTE | 2024-06-12 15:19 | P.PN ---
Subjective Progress Note Date: 06/12/24 This is an 79-year-old male with past medical history significant for hypertension, hyperlipidemia, coronary artery disease with previous CABG x 3 in 2016, very severe COPD/emphysema, former tobacco dependence. His primary care provider is Dr. Taveras. He has been recently established with Dr. Claros in the pulmonary office. Most recent PFT consistent with very severe COPD/emphysema. FEV1/FVC ratio 35%, FEV1 0.67 L or 25% of predicted, uncorrected DLCO 21% predicted. He is maintained on a combination of Trelegy maintenance inhaler and as needed Ventolin HFA inhaler. He no longer smokes, but carries a heavy smoking history. Not currently oxygen dependent at home. Of note, patient states he recently had a stress test at the cardiology office. Results are unknown to me. He presents the emergency department via EMS yesterday evening. He is complaining of worsening shortness of breath over the last 3 to 4 days. This is accompanied with congested cough and minimal green sputum production. Also endorses chest congestion and tightness. He states he had an isolated episode of fever at home. Denies sick contacts. Denies chest pain, heart palpitations, dizziness, syncopal events, lower extremity swelling. He was in some respiratory distress, and was placed on noninvasive BiPAP in the emergency department. Initial BiPAP settings are 12/6 and FiO2 of 50%. ABG consistent with respiratory acidosis. PaO2 360, pCO2 57, pH of 7.27. On my evaluation, patient is in room 385. He is alert and oriented x 3. Remains on bipap with the above mentioned settings, but FIO2 has been dropped down to 50%. Respiratory rate mid 20s BPM and average Vt 500 ml. BiPAP makes communication a little difficult. There is some accessory muscle use and conversational dyspnea. No clinical signs of CO2 narcosis. Chest x-ray does not show any acute cardiopulmonary process. No focal infiltrates or evidence of pneumonia. There is hyperinflation and flattening of the diaphragms consistent with COPD. Old sternotomy wires in place. Cardiac silhouette is stable. No significant pulmonary vascular congestion, pleural effusions. CBC: WBC count 8.1, hemoglobin 12.4, hematocrit 37.5, platelets 133. CMP: Sodium 136, potassium 5.4, chloride 103, serum bicarb 23, BUN 28, creatinine 0.49, glucose 108. LFTs mildly elevated. Troponin 0.16. NT proBNP elevated at 4000. EKG showing sinus tachycardia and diffuse ST T/T-wave abnormalities. Patient has been started on heparin infusion in the emergency department. Negative for influenza, RSV, COVID. Afebrile currently. Remaining vital signs are stable. The patient is seen today June 12, 2024 in follow-up on the selective care unit. He is currently awake and alert in no acute distress. Feeling better today compared to yesterday. He is maintaining good O2 saturations in the upper 90s on 3 L/min per nasal cannula. Has been afebrile. Hemodynamically stable. Abdominal ultrasound due to elevated LFTs revealed suggestion of some gallbla dder sludge. No gallstones or ancillary findings of acute cholecystitis. No biliary ductal dilatation. He is continued on DuoNeb inhalations, Pulmicort and performing scintillations, Solu-Medrol. Objective - Vital Signs Vital signs: Vital Signs Temp 97.4 F L 06/12/24 09:15 Pulse 104 H 06/12/24 12:44 Resp 16 06/12/24 11:39 BP 121/67 06/12/24 11:39 Pulse Ox 96 06/12/24 11:39 FiO2 50 06/11/24 00:26 Intake & Output 06/11/24 06/12/24 06/12/24 18:59 06:59 18:59 Intake Total 958.804 240 360 Output Total 150 120 Balance 808.804 120 360 Weight 75.5 kg 63.5 kg Intake: Intake, IV Titration 178.804 Amount Heparin Sod,Pork in 0.45% 178.804 NaCl 25,000 unit In 0.45 % NaCl 1 250ml.bag @ 12 UNITS/KG/HR 8.709 mls/hr IV .Q24H [facility] Rx#: [id number] Oral 780 240 360 Output: Urine 150 120 Other: Voiding Method Urinal Urinal Urinal # Voids 1 3 - Exam GENERAL EXAM: Alert, 79-year-old male on 3 L nasal cannula, in mild respiratory distress. HEAD: Normocephalic and atraumatic EYES: Normal reaction of pupils, equal size. NOSE: Clear with pink turbinates. THROAT: No erythema or exudates. NECK: No masses, no JVD. CHEST: Barrel chest. LUNGS: Equal air entry with markedly diminished lung sounds bilaterally. No significant wheezing, rhonchi, crackles. CVS: S1 and S2 normal with no audible murmur, regular rhythm. No extra heart sounds ABDOMEN: No hepatosplenomegaly, active bowel sounds, no guarding or rigidity. SPINE: No scoliosis or deformity SKIN: No rashes CENTRAL NERVOUS SYSTEM: No focal deficits, tone is normal in all 4 extremities. EXTREMITIES: Digital clubbing. No significant lower extremity edema. Peripheral pulses are intact. - Labs CBC & Chem 7: 06/11/24 03:02 06/11/24 03:02 Labs: Abnormal Lab Results - Last 24 Hours (Table) 06/11/24 Range/Units 15:16 APTT 41.7 H (22.0-30.0) sec Assessment and Plan Assessment: Acute hypoxemic and hypercapnic respiratory failure, secondary to acute COPD exacerbation. Chest x-ray does not show any acute cardiopulmonary process. No focal infiltrates or evidence of pneumonia. There is hyperinflation and flattening of the diaphragms consistent with COPD. Old sternotomy wires in p lace. Cardiac silhouette is stable. No significant pulmonary vascular congestion, pleural effusions. Negative for influenza, RSV, COVID Very severe COPD/emphysema, with an FEV1 25% of predicted. Normally maintained on a combination of Trelegy maintenance inhaler and as needed Ventolin HFA inhal er. Elevated troponins, rule out non-ST elevation RI, started on a heparin infusion per protocol in the emergency department Elevated liver enzymes, undetermined significance History of hypertension History of hyperlipidemia History of coronary artery disease, with previous CABG x 3 in 2016 Former tobacco dependence Plan: The patient was seen and evaluated Labs and medications reviewed Continue the current treatment plan Titrate down the FiO2 as tolerated Possible discharge in the a.m. We will continue to follow I have personally seen and examined the patient, performed the documentation and the assessment and plan as written. Number of minutes spent on the visit: 10.
--- NOTE | 2024-06-12 15:59 | P.PN ---
Subjective Progress Note Date: 06/12/24 Subjective: Patient seen and examined at bedside. No acute events overnight. Pertinent positives and negatives as discussed above, a complete review of systems was performed and all other systems are negative. Vitals Signs Reviewed. General: Nontoxic, no distress, appears at stated age Derm: Warm, dry Head: Atraumatic, normocephalic, symmetric Eyes: EOMI, no lid lag, anicteric sclera Mouth: No lip lesion, mucus membranes moist Cardiovascular: S1S2 reg, no murmur Lungs: CTA bilateral, no rhonchi, no rales, no accessory muscle use, supplemental oxygen Abdominal: Soft, nontender to palpation, no guarding, no appreciable organomegaly Ext: No gross muscle atrophy, no edema, no contractures Neuro: CN II-XI grossly intact, no focal neuro deficits Psych: Alert, oriented, appropriate affect Data Reviewed Today: Pertinent Labs: No new labs Imaging: Abdominal ultrasound shows liver within normal limits, gallbladder sludge, no gallstones, normal CBD Assessment and Plan: 79-year-old male with history of COPD, former smoker, CAD status post CABG presenting with COPD exacerbation, and acute hypoxic and hypercapnic respiratory failure. Active: Acute hypoxic and hypercapnic respiratory failure Acute COPD exacerbation -Continue Solu-Medrol 60 mg IV every 6 hours, DuoNebs 4 times daily, every 4 hours as needed -Continue Pulmicort twice daily, Perforomist twice daily -Continue to wean oxygen -Pulmonology note reviewed NSTEMI, likely type II History of CAD status post CABG -Was previously on heparin drip, now discontinued -Cardiology following -Echocardiogram showed normal LV systolic function -Continue on aspirin 81 mg, atorvastatin 80 mg nightly -Continue telemetry monitoring Transaminitis -Downtrending transaminases -No right upper quadrant pain -Right upper quadrant ultrasound does not show any liver pathology or cholecystitis, there is some gallbladder sludge Resolved: Thrombocytopenia Normocytic anemia Hyponatremia Chronic: Dyslipidemia BPH Depression DVT ppx: Lovenox Code status: Full code Anticipated discharge place: Pending clinical course Anticipated discharge time: Pending clinical course Objective - Vital Signs Vital signs: Vital Signs Temp 97.4 F L 06/12/24 09:15 Pulse 104 H 06/12/24 12:44 Resp 16 06/12/24 11:39 BP 121/67 06/12/24 11:39 Pulse Ox 96 06/12/24 11:39 FiO2 50 06/11/24 00:26 Intake & Output 06/11/24 06/12/24 06/12/24 18:59 06:59 18:59 Intake Total 958.804 240 360 Output Total 150 120 Balance 808.804 120 360 Weight 75.5 kg 63.5 kg Intake: Intake, IV Titration 178.804 Amount Heparin Sod,Pork in 0.45% 178.804 NaCl 25,000 unit In 0.45 % NaCl 1 250ml.bag @ 12 UNITS/KG/HR 8.709 mls/hr IV .Q24H [facility] Rx#: [id number] Oral 780 240 360 Output: Urine 150 120 Other: Voiding Method Urinal Urinal Urinal # Voids 1 3 - Labs CBC & Chem 7: 06/11/24 03:02 06/11/24 03:02 Labs: Abnormal Lab Results - Last 24 Hours (Table) 06/11/24 Range/Units 15:16 APTT 41.7 H (22.0-30.0) sec
--- NOTE | 2024-06-12 22:55 | P.PN ---
Subjective Progress Note Date: 06/12/24 HISTORY OF PRESENTING ILLNESS Patient is a 79-year-old male with past medical history of hyperte nsion, dyslipidemia, PAD with bypass in 2010, CABG in 2015. In October 2023 patient was hospitalized for Klebsiella pneumonia. During hospitalization he had elevated troponin with a flat pattern. His echocardiogram at that time showed an EF of 50 to 55% with moderate pulmonary hypertension. This time he presented to the hospital because of symptoms of increased shortness of breath and difficulty breathing. He been having increased productive cough with green sputum production. He is reporting some subjective fevers. On admission chest x-ray did not show significant pulmonary congestion. ECG showed sinus tachycardia with nonspecific ST changes, normal QTc WBC 8.1, hemoglobin 12, potassium 5.4, troponin 0.16, repeat troponin 0.12 June 12, 2024 Patient is seen and examined with his this a.m. He denies having any active chest pain chest pressure shortness of breath. PHYSICAL EXAMINATION Vital signs reviewed. Head: Normocephalic. Eyes: Sclerae nonicteric. Neck: Brisk carotid upstroke, no jugular venous distention. Lungs: Diminished breath sounds, poor inspiratory effort, otherwise no wheezing or rhonchi, no significant crackles audible Heart: Regular rate and rhythm, S1-S2, no S3, no murmur or rub. Abdomen: Soft nontender, positive bowel sounds. Extremities: No edema, intact distal pulses. Neuro: Alert, oritented,. Detailed neuro exam was not performed. ASSESSMENT Acute on Chronic hypoxic respiratory failure likely due to pneumonia Mild elevated troponin, likely demand supply mismatch Mild aortic stenosis CAD s/p CABG 2015 PAD status post bypass 2010 Chronic hypoxia on 2 L oxygen COPD Gold stage D, severe emphysema Hypertension Dyslipidemia Cardiac testing Lexiscan December 2023: No evidence of ischemia or infarct Echo: May 2024: EF 55 to 60%, mild aortic stenosis, [facility] Patient does not endorse any symptoms of chest pain chest pressure. Patient had similar presentation in October 2023 when he presented to [facility] with mild elevated troponin when he had hypoxic respiratory failure. His troponin elevation is most likely due to demand supply mismatch. He had a recent Lexiscan nuclear stress test which did not show any reversible or fixed perfusion defect. His echocardiogram also did not show any significant valvular or structural normalities. At this time I will treat patient with optimal guideline directed medical therapy Continue aspirin 81 mg, atorvastatin 40 mg, losartan 50 mg daily, metoprolol tartrate 20 mg twice daily, amlodipine 5 mg daily. Stop heparin drip At this time patient is optimized from cardiovascular standpoint. Cardiology team will sign off. Recommend outpatient follow-up with cardiology clinic. Call cardiology if questions I would recommend that this patient should go for cardiopulmonary rehab to help with his shortness of breath. Consider increasing home oxygen. Recommend 6- minute walk test prior to discharge Objective - Vital Signs Vital signs: Vital Signs Temp 98.1 F 06/12/24 20:07 Pulse 98 06/12/24 21:08 Resp 16 06/12/24 20:07 BP 144/71 06/12/24 20:07 Pulse Ox 96 06/12/24 20:07 FiO2 50 06/11/24 00:26 Intake & Output 06/12/24 06/12/24 06/13/24 06:59 18:59 06:59 Intake Total 240 600 Output Total 120 4 Balance 120 596 Weight 63.5 kg Intake: Oral 240 600 Output: Urine 120 Stool 4 Other: Voiding Method Urinal Urinal # Voids 1 3 - Labs CBC & Chem 7: 06/11/24 03:02 06/11/24 03:02
[2024-06-13] MEDS: METOPROLOL SUCCINATE (ER) 50 MG TAB.ER.24H PO SCH (08:08)
[2024-06-13] MEDS: LOSARTAN 50 MG TAB PO SCH (08:08)
[2024-06-13] MEDS: amLODIPine 5 MG TAB PO SCH (08:08)
[2024-06-13] MEDS: ENOXAPARIN 40 MG/0.4 ML SYRINGE SQ SCH (08:09)
[2024-06-13] MEDS: predniSONE 20 MG TAB PO SCH (09:00)
[2024-06-13 10:01] VITALS: TEMP 97.5
[2024-06-13 11:37] VITALS: BP 110/62; PULSE 94; RESP 16
--- NOTE | 2024-06-13 14:11 | P.DS ---
Providers Date of admission: 06/10/24 21:00 Expected date of discharge: 06/13/24 Attending physician: Del Davis MD Consults: 06/10/24 20:56 Consult Physician Urgent Consulting Provider: Daiana Grissom Consult Reason/Comments: Respiratory distress, COPD exacerbation Do you want consulting provider notified?: Yes Primary care physician: Yao Montanez [facility] Course: Discharge Diagnosis: Acute hypoxic and hypercapnic respiratory failure Acute COPD exacerbation NSTEMI likely type II History of CAD status post CABG Transaminitis Thrombocytopenia Normocytic anemia Hyponatremia Hospital Course: 79-year-old male with past medical history of COPD, CHF unknown type, CABG, on home O2 presented to the emergency room on 06/10/2024 with complaints of shortness of breath and a cough productive of green phlegm. In the ER, patient states that he has been having worsening dyspnea for the past 4 days or so. Patient states that he has stage IV emphysema, and he states that he has been giving himself home neb treatments with minimal improvement. Patient denies being on steroids at this time. 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 Patient admits to having a mildly productive cough. Patient was started on BiPAP by EMS with reported improvement. Patient denies having any pain, fever or chills, headache, focal neuro deficit, chest pain, hemoptysis, palpitations, dizziness, abdominal pain, nausea/vomiting/diarrhea, bloody or melanotic stool, dysuria or urinary symptoms, decreased urine output, leg or calf swelling or pain, or any other symptoms or complaints.Chest x-ray showed no acute cardiopulmonary disease or process, but showed hyperinflation and flattening of the diaphragm consistent with COPD. EKG showed sinus tachycardia with low voltage, biphasic T-waves in precordial leads V3-V5 with TWI in leads II and aVF with good R wave progression and normal QTC interval of 371. No prior EKG available for comparison. Labs in ED were as follow: WBC 8.1 hemoglobin 12.4 hematocrit 37.5 platelets 133. ABG pH 7.27 CO2 57 O2 360 bicarb 26. Sodium 136 potassium 5.4 total bilirubin 1.5 AST 140 ALT 119 troponin 0.16 proBNP 3980 BUN 28 creatinine 0.49. The patient was also initiated on heparin infusion with aspirin and Lipitor and troponins were trended. He was started on DuoNebs, Perforomist, Pulmicort and Solu-Medrol as per pulmonology. The patient was admitted for acute COPD exacerbation, although his troponin was elevated to 0.16 with an elevated proBNP of 3980. Echocardiogram showed mild aortic stenosis. CTA with contrast was done and no acute PE was found. Abdominal ultrasound showed some gallbladder sludge but no gallstones, cholecystitis, or biliary ductal dilatation was found. On 06/10, He was maintained on initial BiPAP settings of 12/6 and FiO2 of 50% and had some conversational dyspnea. On 06/11 patient received BiPAP support at night, 2 L nasal cannula. For the next 2 days, patient denied having any active chest pain, chest pressure, and shortness of breath. During this admission, patient was seen by both pulmonology and cardiology. Patient will be discharged on oral prednisone for 2 days. Home medications were resumed. Patient was advised to follow-up with PCP in 1 week. If patient does not have PCP, please call Dr. Dang's office. Patient also advised to follow-up with Dr. Claros on 06/26/2024 at 9 AM. Patient received handout on COPD. Patient's discharge disposition is home self-care with . Pt seen and examined at bedside resting comfortably in the chair and excited for discharge Vital signs reveiwed and stable. General: non toxic, no distress, appears at stated age, normal weight, saturating well on 2 L nasal cannula Derm: no unusual rashes/lesions, warm Head: atraumatic, normocephalic, symmetric Eyes: EOMI, no lid lag, anicteric sclera, pupils equal round reactive to light ENT: Nose and ears atraumatic Neck: No cervical lymphadenopathy, trachea midline, supple Mouth: no lip lesion, mucus membranes moist Cardiovascular: S1S2 reg, no murmur, positive dorsalis pedis pulse bilateral, no edema Lungs: CTA bilaterally, no rhonchi, no rales, no accessory muscle use Abdominal: soft, nontender to palpation, no guarding Ext: muscle strength 5 out of 5 in all 4 extremities grossly, no gross muscle atrophy, no contractures, Neuro: CN II-XI grossly intact, no gross focal neuro deficits Psych: Alert, oriented, appropriate affect A total of 30 minutes were spent preparing this complex discharge summary. Patient was discharged on 06/13/2024 at 1142. I have seen and evaluated the patient today. Discussed with the resident and agree with the residents finding and plan as documented in the resident's note. Changes highlighted in blue font. Patient Condition at Discharge: Stable Plan - Discharge Summary Discharge Rx Participant: No New Discharge Prescriptions: New predniSONE [Deltasone] 40 mg PO DAILY #4 tab Tamsulosin [Flomax] 0.4 mg PO PC-BRKFST #60 cap Continue amLODIPine [Norvasc] 5 mg PO DAILY 30 Days #30 tab Metoprolol Succinate (ER) [Toprol XL] 50 mg PO DAILY 30 Days #30 tab Losartan [Cozaar] 50 mg PO DAILY 30 Days #30 tab Sertraline [Zoloft] 50 mg PO DAILY Aspirin EC [Ecotrin Low Dose] 81 mg PO DAILY Pantoprazole [Protonix] 40 mg PO DAILY Fluticasone/Umeclidin/Vilanter [Trelegy Ellipta 100-62.5-25] 1 puff INHALATION RT-DAILY Atorvastatin [Lipitor] 40 mg PO DAILY Albuterol Sulfate [Albuterol Sulfate Hfa] 2 puff INHALATION RT-Q4H PRN PRN Reason: Shortness Of Breath Ipratropium-Albuterol Nebulize [Duoneb 0.5 mg-3 mg/3 ml Soln] 3 ml INHALATION RT-TID Discharge Medication List Fluticasone/Umeclidin/Vilanter [Trelegy Ellipta 100-62.5-25] 1 puff INHALATION RT-DAILY 10/09/23 [History] Pantoprazole [Protonix] 40 mg PO DAILY 10/09/23 [History] Losartan [Cozaar] 50 mg PO DAILY 30 Days #30 tab 10/15/23 [Rx] Metoprolol Succinate (ER) [Toprol XL] 50 mg PO DAILY 30 Days #30 tab 10/15/23 [Rx] amLODIPine [Norvasc] 5 mg PO DAILY 30 Days #30 tab 10/15/23 [Rx] Albuterol Sulfate [Albuterol Sulfate Hfa] 2 puff INHALATION RT-Q4H PRN 06/11/24 [History] Aspirin EC [Ecotrin Low Dose] 81 mg PO DAILY 06/11/24 [History] Atorvastatin [Lipitor] 40 mg PO DAILY 06/11/24 [History] Ipratropium-Albuterol Nebulize [Duoneb 0.5 mg-3 mg/3 ml Soln] 3 ml INHALATION RT-TID 06/11/24 [History] Sertraline [Zoloft] 50 mg PO DAILY 06/11/24 [History] Tamsulosin [Flomax] 0.4 mg PO PC-BRKFST #60 cap 06/13/24 [Rx] predniSONE [Deltasone] 40 mg PO DAILY #4 tab 06/13/24 [Rx] Follow up Appointment(s)/Referral(s): Aaron Dang MD [REFERRING] - 1 Week (CALL AND MAKE [place]! (primary doctor)) Jam Claros DO [Doctor of Osteopathic Medicine] - 06/26/24 9:00 am Patient Instructions/Handouts: COPD (Chronic Obstructive Pulmonary Disease) (DC) Activity/Diet/Wound Care/Special Instructions: Please see your PCP and pulmonology. If you do not have a PCP, please call Dr. Dang's office for appointment. Discharge Disposition: HOME SELF-CARE
--- NOTE | 2024-06-13 14:30 | P.PN ---
Subjective Progress Note Date: 06/13/24 This is an 79-year-old male with past medical history significant for hypertension, hyperlipidemia, coronary artery disease with previous CABG x 3 in 2016, very severe COPD/emphysema, former tobacco dependence. His primary care provider is Dr. Taveras. He has been recently established with Dr. Claros in the pulmonary office. Most recent PFT consistent with very severe COPD/emphysema. FEV1/FVC ratio 35%, FEV1 0.67 L or 25% of predicted, uncorrected DLCO 21% predicted. He is maintained on a combination of Trelegy maintenance inhaler and as needed Ventolin HFA inhaler. He no longer smokes, but carries a heavy smoking history. Not currently oxygen dependent at home. Of note, patient states he recently had a stress test at the cardiology office. Results are unknown to me. He presents the emergency department via EMS yesterday evening. He is complaining of worsening shortness of breath over the last 3 to 4 days. This is accompanied with congested cough and minimal green sputum production. Also endorses chest congestion and tightness. He states he had an isolated episode of fever at home. Denies sick contacts. Denies chest pain, heart palpitations, dizziness, syncopal events, lower extremity swelling. He was in some respiratory distress, and was placed on noninvasive BiPAP in the emergency department. Initial BiPAP settings are 12/6 and FiO2 of 50%. ABG consistent with respiratory acidosis. PaO2 360, pCO2 57, pH of 7.27. On my evaluation, patient is in room 385. He is alert and oriented x 3. Remains on bipap with the above mentioned settings, but FIO2 has been dropped down to 50%. Respiratory rate mid 20s BPM and average Vt 500 ml. BiPAP makes communication a little difficult. There is some accessory muscle use and conversational dyspnea. No clinical signs of CO2 narcosis. Chest x-ray does not show any acute cardiopulmonary process. No focal infiltrates or evidence of pneumonia. There is hyperinflation and flattening of the diaphragms consistent with COPD. Old sternotomy wires in place. Cardiac silhouette is stable. No significant pulmonary vascular congestion, pleural effusions. CBC: WBC count 8.1, hemoglobin 12.4, hematocrit 37.5, platelets 133. CMP: Sodium 136, potassium 5.4, chloride 103, serum bicarb 23, BUN 28, creatinine 0.49, glucose 108. LFTs mildly elevated. Troponin 0.16. NT proBNP elevated at 4000. EKG showing sinus tachycardia and diffuse ST T/T-wave abnormalities. Patient has been started on heparin infusion in the emergency department. Negative for influenza, RSV, COVID. Afebrile currently. Remaining vital signs are stable. The patient is seen today June 12, 2024 in follow-up on the selective care unit. He is currently awake and alert in no acute distress. Feeling better today compared to yesterday. He is maintaining good O2 saturations in the upper 90s on 3 L/min per nasal cannula. Has been afebrile. Hemodynamically stable. Abdominal ultrasound due to elevated LFTs revealed suggestion of some gallbla dder sludge. No gallstones or ancillary findings of acute cholecystitis. No biliary ductal dilatation. He is continued on DuoNeb inhalations, Pulmicort and performing scintillations, Solu-Medrol. The patient is seen today June 13, 2024 in follow-up on the selective care unit. He is currently sitting up in a chair. Awake and alert in no acute distress. Feeling better today compared to yesterday. He is maintaining good O2 saturations in the 90s on 2 L/min per nasal cannula. He is continued on DuoNeb inhalations, Pulmicort and performing scintillations, Solu-Medrol. Lovenox for DVT prophylaxis. Objective - Vital Signs Vital signs: Vital Signs Temp 97.5 F L 06/13/24 08:00 Pulse 94 06/13/24 11:35 Resp 16 06/13/24 11:35 BP 110/62 06/13/24 11:35 Pulse Ox 96 06/13/24 11:35 FiO2 50 06/11/24 00:26 Intake & Output 06/12/24 06/13/24 06/13/24 18:59 06:59 18:59 Intake Total 600 865 Output Total 4 Balance 596 865 Intake: Oral 600 865 Output: Stool 4 Other: Voiding Method Urinal Urinal Toilet # Voids 3 2 2 - Exam GENERAL EXAM: Alert, pleasant 79-year-old male, up in a chair, on 3 L nasal cannula, in mild respiratory distress. HEAD: Normocephalic and atraumatic EYES: Normal reaction of pupils, equal size. NOSE: Clear with pink turbinates. THROAT: No erythema or exudates. NECK: No masses, no JVD. CHEST: Barrel chest. LUNGS: Equal air entry with markedly diminished lung sounds bilaterally. No significant wheezing, rhonchi, crackles. CVS: S1 and S2 normal with no audible murmur, regular rhythm. No extra heart sounds ABDOMEN: No hepatosplenomegaly, active bowel sounds, no guarding or rigidity. SPINE: No scoliosis or deformity SKIN: No rashes CENTRAL NERVOUS SYSTEM: No focal deficits, tone is normal in all 4 extremities. EXTREMITIES: Digital clubbing. No significant lower extremity edema. Peripheral pulses are intact. - Labs CBC & Chem 7: 06/11/24 03:02 06/11/24 03:02 Assessment and Plan Assessment: Acute hypoxemic and hypercapnic respiratory failure, secondary to acute COPD exacerbation. Chest x-ray does not show any acute cardiopulmonary process. No focal infiltrates or evidence of pneumonia. There is hyperinflation and flattening of the diaphragms consistent with COPD. Old sternotomy wires in p lace. Cardiac silhouette is stable. No significant pulmonary vascular congestion, pleural effusions. Negative for influenza, RSV, COVID Very severe COPD/emphysema, with an FEV1 25% of predicted. Normally maintained on a combination of Trelegy maintenance inhaler and as needed Ventolin HFA inhal er. Elevated troponins, rule out non-ST elevation PA, started on a heparin infusion per protocol in the emergency department Elevated liver enzymes, undetermined significance History of hypertension History of hyperlipidemia History of coronary artery disease, with previous CABG x 3 in 2016 Former tobacco dependence Plan: The patient was seen and evaluated Medications reviewed Cleared for discharge Continue his home Trelegy, albuterol HFA Continue his home oxygen Complete a prednisone taper Follow-up in our office in 1 week I have personally seen and examined the patient, performed the documentation and the assessment and plan as written. Number of minutes spent on the visit: 10.
== END 2024-06-13 13:53 | disposition home or self-care (01) | DRG 190 ==
LOC: EC 18:26 → MERGE 21:00 → 3SCARD 21:00
PROVIDERS: ADMIT Internal Medicine; ATTEND Internal Medicine
PROC: 5A09357 Assistance with Respiratory Ventilation, Less than 24 Consecutive Hours, Continuous Positive Airway Pressure (ICD-10-PCS; principal; 2024-06-10)
DX: J44.1 Chronic obstructive pulmonary disease with (acute) exacerbation (principal); I21.A1 Myocardial infarction type 2; J96.21 Acute and chronic respiratory failure with hypoxia; J96.22 Acute and chronic respiratory failure with hypercapnia; J18.9 Pneumonia, unspecified organism; E87.29 Other acidosis; E87.1 Hypo-osmolality and hyponatremia; I27.22 Pulmonary hypertension due to left heart disease; D69.6 Thrombocytopenia, unspecified; I11.0 Hypertensive heart disease with heart failure; I50.9 Heart failure, unspecified; J44.0 Chronic obstructive pulmonary disease with (acute) lower respiratory infection; J43.9 Emphysema, unspecified; I73.9 Peripheral vascular disease, unspecified; Z99.81 Dependence on supplemental oxygen; F32.A Depression, unspecified; D64.9 Anemia, unspecified; Z95.820 Peripheral vascular angioplasty status with implants and grafts; I25.10 Atherosclerotic heart disease of native coronary artery without angina pectoris; I35.0 Nonrheumatic aortic (valve) stenosis; K82.8 Other specified diseases of gallbladder; E87.5 Hyperkalemia; N40.1 Benign prostatic hyperplasia with lower urinary tract symptoms; R33.8 Other retention of urine; R74.01 Elevation of levels of liver transaminase levels; E78.5 Hyperlipidemia, unspecified; Z79.82 Long term (current) use of aspirin; Z95.1 Presence of aortocoronary bypass graft; Z87.891 Personal history of nicotine dependence; Z79.51 Long term (current) use of inhaled steroids; Z79.899 Other long term (current) drug therapy; Z11.52 Encounter for screening for COVID-19
CPT/HCPCS: 36415; 36600; 71045; 71275; 76705; 80053; 82805; 83605; 83880; 84145; 84484; 85025; 85027; 85379; 85610; 85730; 87636; 93005; 93306; 94640; 94660; 94760; 96365; 96375; 99291